=== PATIENT | female | born 1930 | race Caucasian/White ===

== ENCOUNTER 2019-01-22 09:17 | Inpatient (IN) ==
[2019-01-22] MEDS ORDERED: NS 1,000 ML IV ONE (09:50)
[2019-01-22] MEDS ORDERED: ZOFRAN IV ONE (09:57)
--- NOTE | 2019-01-22 10:37 | PROVIDER DOCUMENTATION ---
HPI-Abdominal Pain/GI Problem - General Chief Complaint: Vomiting Blood Stated Complaint: spitting up blood Time Seen by Provider: 01/22/19 09:31 Source: patient Allergies/Adverse Reactions: Patient Allergies Allergy/AdvReac Type Severity Reaction Status Date / Time Penicillins Allergy Severe ANAPHYLAXIS Verified 01/22/19 09:41 Home Medications: Home Medication List Medication Instructions Recorded Confirmed Last Taken Type Aspirin EC 81 mg PO DAILY 02/05/13 01/22/19 01/21/19 History Furosemide [Lasix] 20 mg PO DAILY 02/05/13 01/22/19 01/21/19 History Levothyroxine [Synthroid] 75 microgm PO DAILY 02/05/13 01/22/19 01/21/19 History Cholecalciferol (Vitamin D3) 1 tab PO DAILY 01/22/19 01/22/19 01/21/19 History [Vitamin D3] Duloxetine [Cymbalta] 1 tab PO DAILY 01/22/19 01/22/19 01/21/19 History Metoprolol Succinate E.r. [Toprol 1 tab PO DAILY 01/22/19 01/22/19 01/21/19 History Xl] Naproxen Sod/Diphenhydram HCl 1 tab PO QHS 01/22/19 01/22/19 01/21/19 History [Aleve Pm Caplet] Omeprazole 1 tab PO DAILY 01/22/19 01/22/19 01/21/19 History Simvastatin 1 tab PO DAILY 01/22/19 01/22/19 01/21/19 History - History of Present Illness-ABD Nature of Presenting Problems: 89 yr old F, hx of HTN, renal disease, HF, valve disease, presents with several hour history of spitting up blood. The pt was returning from breakfast this morning and walking back to her room, when she began to spit up bright red blood. Between the time this started and the time she arrived in the hospital, she was noted to have filled up two 6 oz cups with bloody spit; at the time of the exam here, a hazard bag was noted to have about 40-60 mLs of was appeared to be jessy blood. The pt also reported she had been having dark stools for some time, though her last BM, this morning, was not dark at all. She denies any active chest pain or abdominal pain. She does take aspirin and Aleve on a nightly basis. She is alert and oriented x 3. Onset/Duration: reports: 1-3 hours ago Timing: reports: still present Activities at Onset: reports: none Exposure to sick contacts?: No Modifying Factors: improves with: nothing Last BM: this morning Dark Stools Present?: reports: none noticed Rectal Bleeding: reports: none Emesis Description: reports: red blood Bruising or Bleeding Gums?: No Similar Symptoms Previously?: No Review of Systems - Adult - REVIEW OF SYSTEMS - ADULT Constitutional: reports: no symptoms reported Eyes: reports: no symptoms reported Ears, Nose, Mouth & Throat: reports: no symptoms reported Cardiovascular: reports: no symptoms reported Respiratory: reports: no symptoms reported Gastrointestinal: reports: hematemesis Neurological: reports: no symptoms reported Past History - Adult - PAST MEDICAL HISTORY-ADULT Review of Records: reports: Nursing Assessment Review Cardiovascular: reports: CHF, HTN Gastrointestinal: reports: other (hiatal hernia) Neurological: reports: denies history Endocrine/Immune: reports: denies history - IMMUNIZATION STATUS Childhood Immunizations: See Nurse Assessment Flu Vaccine: See Nurse Assessment - FAMILY HISTORY Family History: reviewed, not pertinent Physical Exam-General - PHYSICAL EXAM-ADULT Initial Vital Signs Reviewed: Yes - CONSTITUTIONAL General Appearance: alert, no apparent distress - EYES Eyes: PERRL/EOMI - HEAD, EARS, NOSE, MOUTH & THROAT HENMT: moist mucous membranes, other (bloody saliva noted at mouth and in bag) - RESPIRATORY Respiratory: crackles, wheezing - CARDIOVASCULAR Cardiovascular: regular rate, rhythm - GASTROINTESTINAL (ABDOMEN) Abdominal Exam: non tender, soft - SKIN Integumentary: other (patient appears somewhat pale) - NEUROLOGIC Neurologic: grossly normal - PSYCHIATRIC Psych/Mental Status: normal mood/affect, oriented x 3 Progress - PLAN OF CARE/RESULTS Progress/Plan/Lab Results: Vital Signs - 8 hr 01/22/19 09:26 01/22/19 09:28 01/22/19 09:32 Pulse Rate 70 69 Respiratory Rate 10 L 16 Blood Pressure 107/64 124/62 O2 Sat by Pulse Oximetry 01/22/19 09:35 01/22/19 09:48 01/22/19 10:00 Pulse Rate 70 74 65 Respiratory Rate 19 18 14 Blood Pressure 107/64 102/67 O2 Sat by Pulse Oximetry 100 100 96 01/22/19 10:02 01/22/19 10:19 Pulse Rate 68 74 Respiratory Rate 20 19 Blood Pressure 115/62 96/62 O2 Sat by Pulse Oximetry 100 99 Orders Category Date Time Status CBC WITH ELECTRONIC DIFF [HEME] Stat Lab 01/22/19 10:21 Results CMP [COMPREHENSIVE METABOLIC PANEL] [CHEM] Stat Lab 01/22/19 10:21 Received PRBC [LRPC (RED CELLS)] [BBK] Stat Lab 01/22/19 10:21 Received TYPE & SCREEN [BBK] Stat Lab 01/22/19 10:21 Received 0.9% Sodium Chloride Inj [Ns] 1,000 ml Med 01/22/19 09:50 Active IV 999 mls/hr Ondansetron [Zofran] Med 01/22/19 09:57 Discontinued 8 mg IV NOW ONE Result Diagrams: 01/22/19 14:53 01/22/19 10:21 - REASSESSMENT Reassessment #1 Time Reassessed: 11:30 (Pt evaliayed by Dr. Woods, who took her up for emergent endoscopy. Vitals were stable at time of departure from ED. Pt recieved one bag of fluid prior to departure. ) - CONSULTS/PCP/HOSPITALIST Notification #1 *Consult/PCP/Hospitalist*: Starla Time Discussed: 11:00 Consult Disposition: Admit Departure - Departure Date of Disposition Decision: 01/22/19 Time of Disposition Decision: 11:30 DIAGNOSIS: Upper GI bleeding Disposition: ADMITTED INPATIENT 09 Certified Medical Emergency: Emergent Condition: Serious - Critical Care Note This patient required my direct & personal management of CC.: Yes Total Time (mins): 45 Critical Care Statement: This patient required my direct personal management to treat or rule out processes, the absence of which, could potentiallly result in sudden, clinically significant life or limb threatening deterioration. Attestation - Physician/ DOMENICO Attestation Patient care was provided by Advanced Practice Provider:: No The physician spent face to face time with patient:: Yes Advanced Practice Provider documentation review:: Supervising physician onsite and consulted in the evaluation and care of this patient. The physician did have a face to face encounter with the patient.
[2019-01-22 10:51] LABS: ALB/GLOB RATIO 1.1; ALBUMIN 3.7 g/dL (3.5-5.0); BASO# 0.03 X1000 (0.0-0.2); BASO% 0.5 % (0.0-0.8); CALCIUM 8.4 mg/dL (8.8-10.2); CREATININE 1.6 mg/dL (0.5-0.9); EOS# 0.09 X1000 (0.0-0.7); EOS% 1.6 % (0.0-10.0); HEMATOCRIT 22.9 % (37.0-47.0); HEMOGLOBIN 6.6 g/dL (12.0-16.0); LYMPH# 0.87 X1000 (1.2-3.4); LYMPH% 15.2 % (20.5-51.1); MCH 23.8 PG (27-31); MCHC 28.8 g/dL (33-37); MCV 82.7 FL (81-99); MONO# 0.54 X1000 (0.11-0.59); MONO% 9.4 % (1.7-9.3); MPV 11.4 FL (7.4-10.4); NEUT% 73.3 % (42.2-75.2); PLT 169 X1000 (130-400); RBC 2.77 XMIL (4.2-5.4); RDW 16.3 % (11.5-14.5); TOTAL BILIRUBIN 0.55 mg/dL (0.20-1.00); TOTAL PROTEIN 7.1 g/dL (6.3-8.3); WBC 5.73 X1000 (4.8-10.8)
[2019-01-22] MEDS ORDERED: PROTONIX 80 MG in NS 80 ML IV ONE (10:51)
[2019-01-22] MEDS ORDERED: NS 500 ML IV ONE (11:36)
[2019-01-22] MEDS ORDERED: AMIDATE ONE (12:05)
[2019-01-22] MEDS ORDERED: SODIUM CHLORIDE 0.9% 10 ML ONE (12:16)
[2019-01-22] MEDS ORDERED: NEO-SYNEPHRINE ONE (12:16)
--- NOTE | 2019-01-22 12:56 | ENDOSCOPY OPERATIVE NOTE ---
[facility] ENDOSCOPY OPERATIVE NOTE , PATIENT: Radha Butt ADMISSION DATE: MR#: [id number] : 1930 EGD PROCEDURE REPORT PROCEDURE DATE: 01/22/2019 SURGEON: Agustin Woods MD STATUS: inpatient [employer] MEMBER: Tessa Rosenthal and Karen Fernandez PREOPERATIVE DIAGNOSIS: The patient is a 89 yr old female here for an EGD due to Hematemesis. Anemi a, Use of NSAIds like Aspirin and Aleve every day; developed Vomitting blood after eating Breakfast. PROCEDURE PERFORMED: EGD, diagnostic MEDICATIONS: Per Anesthesia TOPICAL ANESTHETIC: none CONSENT: The patient understands the risks and benefits of the procedure and understands that these r isks include, but are not limited to: sedation, allergic reaction, infection, perforation and/or bleeding. Alternative means of evaluation and treatment include, among others: physical exam, x-rays, and/or surgical intervention. The patient elects to proceed with this endoscopic procedure. HISORY AND PHYSICAL: 01/22/2019 DESCRIPTION OF PROCEDURE: During intra-op preparation period all mechanical and medical equipment was checked for proper function. Hand hygiene and appropriate measures for infection prevention was taken. After the risks, benefits and alternatives of the procedure were thoroughly explained, Informed consent was verified, confirmed and timeout was successfully executed by the treatment team. The patient was anesthetized with topical anesthesia and the endoscope was introduced through the mouth and advanced to the second portion of the duodenum. Retroflexion wa s performed in the stomach and revealed Blood in the distal esophagus and Proximal stomach. The gastroscope was then sl owly withdrawn and removed. ESOPHAGUS: Large amount of blood and clots in the distal esophagus; partially evacuated; One large ad herent clot in distal esophagus likely representing Jennifer Rollins tear. Surgeon was called in the OR. STOMACH: Blood and clots and fod noted in the stomach body. DUODENUM: The duodenal mucosa showed no abnormalities in the duodenal bulb, 1st part duodenum, and 2n d part duodenum. SPECIMENS REMOVED: No ADVERSE EVENTS: There were no complications. POSTOPERATIVE DIAGNOSIS: 1. Large amount of blood and clots in the distal esophagus; partially e vacuated; One large adherent clot in distal esophagus likely representing Jennifer Rollins tear. Surgeon was called in the OR 2. Blood and clots and fod noted in the stomach body 3. The duodenal mucosa showed no abnormalities in the duodenal bulb, 1st part duodenum, and 2nd part duodenum RECOMMENDATIONS: Surgery consult to evaluate for distal esophageal tear CT scan chest/abdomen IV Antibiotic PPI BID Serial Hct and Transfuse as needed. Pulmonary consult for airway maintainence NPO for now. Discussed with Dr Mead by phone. Need to admit to ICU. REPEAT EXAM: Agustin Woods MD eSigned: Agustin Woods MD 01/22/2019 1:56 PM cc: PATIENT NAME: Radha Butt MR#: [id number]
[2019-01-22] MEDS ORDERED: NS 1,000 ML ONE (13:03)
--- NOTE | 2019-01-22 13:39 | HISTORY AND PHYSICAL ---
ADDENDUM TO HISTORY AND PHYSICAL DICTATED BY NURSE PRACTITIONER: I agree with most components of history, physical, assessment, and plan. HISTORY OF PRESENT ILLNESS: In brief, Ms. Butt is an 89-year-old lady with past medical history of sick sinus syndrome status post pacemaker, bioprosthetic aortic wall and severe aortic stenosis within the bioprosthetic aortic valve, essential hypertension, hypothyroidism, esophageal achalasia requiring dilatation in 2019, chronic kidney disease stage 3, who comes in with chief complaint of spitting up blood since today morning. According to the [id number] at bedside, the patient has been having swallowing trouble since last few months, she had seen Dr. Rea outpatient and she underwent EGD with dilatation, the details of which are unclear to me in 2019. Since last 10 days, off and on she spits out food particles and mucousy material. However, today morning in assisted living facility, she was noticed to be spitting out blood and so she was sent to the emergency room. In the emergency room, she was hemodynamically stable and she is constantly spitting out blood in terms of vomiting. Her hemoglobin is 6.8, so the hospitalist team was consulted for further management. By the time I evaluated the patient, Gastroenterology had evaluated the patient and she is about to undergo endoscopic procedure. She is denying any chest pain, shortness of breath. She is complaining of epigastric abdominal pain, bilateral lower extremity edema. She takes daily aspirin and Aleve. PHYSICAL EXAMINATION: VITAL SIGNS: Temperature 97.7 degrees, pulse 66, respiratory rate 12, blood pressure 101/57. She is saturating 100% on room air. GENERAL: Not in any acute distress. HEENT: Oral cavity is moist. No pharyngeal lesions. No tonsillitis. CARDIOVASCULAR: S1 is normal. S2 is obscured. She has a crescendo decrescendo murmur heard at the base of the heart. No rub or gallop. LUNGS: Air entry bilaterally equal. No wheeze, rhonchi, crackles. ABDOMEN: Soft. There is tenderness in epigastric region. Active bowel sounds. EXTREMITIES: Bilateral lower extremity edema. She appears to be having low BMI. NEUROLOGIC: She is alert and oriented x3. LABORATORY DATA: Suggestive of hemoglobin of 6.6, platelet of 169,000. Chronic kidney disease stage 3. She has not been started on blood transfusion at the moment and I discussed with the nurse about getting another 16 G IV line and start her on blood transfusion. The emergency room physician had ordered 80 mg of IV pantoprazole and I started her on another 40 mg IV q.12 hours. ASSESSMENT AND PLAN: 1. Acute blood loss anemia. Differential being peptic ulcer disease or others considering use of aspirin as well as nonsteroidal anti-inflammatories. 2. Status post bioprosthetic aortic valve and severe aortic stenosis. 3. Sick sinus syndrome status post pacemaker. 4. Chronic kidney disease stage 4. 5. Suspected esophageal achalasia versus stricture requiring dilatation in early 2019 with hiatal hernia. 6. Hypothyroidism. Start patient on intravenous pantoprazole. She is status post intravenous fluid resuscitation. Two units of blood transfusion have been ordered. She is about to undergo EGD. She very distinctly admitted that her code status is DNR level 1. She would not want any chest compressions or intubation. Postprocedure plan of care extensively discussed with the patient and her family members. I explained to them about her critical condition because of multiple comorbidities. TIME SPENT: More than 30 minutes of critical care time was spent in taking care of this patient. cc: Jovan Ba MD MTDD
[2019-01-22 15:22] LABS: URINE SOURCE CATH
[2019-01-22 15:27] LABS: BILIRUBIN URINE NEGATIVE (NEGATIVE); BLOOD URINE NEGATIVE (NEGATIVE); COLOR YELLOW; GLUCOSE URINE NEGATIVE (NEGATIVE); KETONE URINE NEGATIVE (NEGATIVE); LEUKOCYTES URINE LARGE (NEGATIVE); NITRITE URINE POSITIVE (NEGATIVE); PROTEIN URINE 30 mg/dL (NEGATIVE); SP GRAVITY URINE 1.016; TURBIDITY URINE HAZY (CLEAR); UR EPITHELIAL CELLS <10 /HPF (<10); URINE BACTERIA 4+ /HPF; URINE RBC <10 /HPF (<10); URINE WBC TNTC /HPF (<10); UROBILINOGEN URINE 2 mg/dL (NORMAL)
[2019-01-22 15:32] LABS: HEMATOCRIT 28.3 % (37.0-47.0)
--- NOTE | 2019-01-22 15:38 | Diag Imaging Result Doc PS360 ---
BA SWALLOW-ESOPHAGUS - 01/22/2019 INDICATION: post EGD TECHNIQUE: COMPARISON: 08/21/2018 FINDINGS: There is a moderately large hiatal hernia. There is some indeterminate frothy material in the stomach. There is no obvious perforation. The patient was having active hematemesis to the patient was returned to the ICU. IMPRESSION: No evidence of perforation. Indeterminate frothy material in the stomach. Electronically signed by Rommel Childress 01/22/2019 3:35 PM
[2019-01-22] MEDS: NS 1,000 ML IV SCH (15:53)
[2019-01-22] MEDS: FLAGYL 500 MG/NS 500 MG/100 ML IVPB IV SCH ×2 (16:12→20:46)
[2019-01-22] MEDS: LEVAQUIN 500 MG/D5W 500 MG/100 ML IVPB IV SCH (16:12)
--- NOTE | 2019-01-22 17:29 | PROGRESS NOTE ---
DATE: 01/22/2019 ADDENDUM: Goals of care discussion: This is an addendum to previously dictated History and Physical. I evaluated the patient in ICU. She is status post EGD. She received 2 units of PRBC during EGD procedure, and her hemoglobin has increased appropriately. Apparently, EGD had large amount of blood in the distal esophagus and a blood clot adherent to the wall of the esophagus, and so the surgeon doctor was called and patient was transferred back to ICU. I had a discussion with General Surgery team and accordingly I gave patient 3 options, (1) transferring her to [facility] for cardiothoracic surgery which itself could be risky; (2) transferring her to [facility] for possible intervention radiology guided embolization, if at all is a possibility, which may involve introduction of contrast and kidney failure on her CKD stage 4, and she may end up on dialysis; and (3) managing her with optimal medical treatment, including antacids, intravenous fluids, and blood transfusions as needed. The patient and her family promptly decided that they wanted to stay in [facility] and pursue further medical care rather than going to [facility] for those aggressive measures. Accordingly, I will keep the patient and monitor in ICU environment. I will also call Transfer Center just in case to get an opinion of intervention radiologist, though, in my opinion, intervention radiology guided intervention itself could be risky considering her CKD stage 4, severe aortic stenosis, and bioprosthetic aortic valve. cc: Jovan Ba MD MTDAmber
--- NOTE | 2019-01-22 17:45 | PROGRESS NOTE ---
DATE: 01/22/2019 ADDENDUM: I talked with interventional radiologist at [facility] over the [facility] transfer line. I explained to him about patient's condition and he suggested that if it is a Jennifer-Rollins tear it is likely venous in origin and it may not be amenable to intervention radiology intervention. Even if it is an arterial bleed, it would involve CT angiography and injection of contrast. Considering that, it may pose risk to her kidneys considering she is already CKD stage 4. The patient and family had previously explicitly decided that they would not undergo any procedure that would pose a risk to her kidneys and she may have to end up on dialysis. So at this point, we will manage her medically inside [facility]. I updated the patient's nurse about this. cc: Jovan Ba MD
[2019-01-22 17:48] LABS: HEMATOCRIT 31.5 % (37.0-47.0); HEMOGLOBIN 9.2 g/dL (12.0-16.0); MCH 24.3 PG (27-31); MCHC 29.2 g/dL (33-37); MCV 83.3 FL (81-99); MPV 10.2 FL (7.4-10.4); RBC 3.78 XMIL (4.2-5.4); RDW 17.5 % (11.5-14.5); WBC 7.12 X1000 (4.8-10.8)
[2019-01-22 17:57] LABS: INR 1.16
[2019-01-22 17:58] LABS: PTT 33.4 Seconds (22.3-41.8)
--- NOTE | 2019-01-22 18:19 | GENERAL SURGERY CONSULTATION ---
DATE: 01/22/2019 REQUESTING PHYSICIAN: Dr. Agustin Woods. REASON FOR CONSULTATION: Possible esophageal tear. HISTORY OF PRESENT ILLNESS: This is an 89-year-old female who I examined in the postoperative recovery room after her EGD. She reports to me eating breakfast this morning followed by blood being regurgitated up into her mouth and she was spitting it out. She specifically denied vomiting or retching. She also denied any abdominal pain or chest pain or neck pain this morning, either before the procedure or after. She does have a history of hiatal hernia and the use of aspirin and Aleve every day. PAST MEDICAL HISTORY: Severe aortic stenosis, pulmonary hypertension, hiatal hernia, history of sick sinus syndrome, followed by pacemaker placement, history of aortic valve replacement, hypertension. HOME MEDICATIONS: Aspirin, Lasix, Synthroid, vitamin D3, Cymbalta, Toprol, naproxen sodium/diphenhydramine, omeprazole, simvastatin. ALLERGIES: Penicillin. PAST SURGICAL HISTORY: Pacemaker placement, bovine aortic valve replacement. FAMILY HISTORY: Reviewed and noncontributory. SOCIAL HISTORY: Negative for tobacco or alcohol. She lives in assisted living. REVIEW OF SYSTEMS: Ten systems reviewed and negative except as noted above. PHYSICAL EXAMINATION: Vital Signs: Temperature 97.3 degrees, pulse 65, blood pressure 101/57, O2 saturation 100%. General: Elderly frail appearing female in no acute distress, who looks her stated age. HEENT: Normocephalic, atraumatic. Extraocular muscles intact. Pupils equal, round, reactive to light. Sclerae anicteric. Moist mucous membranes. Neck: Supple. No thyromegaly. No crepitus. Cardiovascular: Regular rate and rhythm. Respiratory: Clear bilateral breath sounds. No increased work of breathing. No crepitus across the chest wall or neck. Gastrointestinal: Soft, nontender, nondistended. No organomegaly or mass. Extremities: No clubbing or cyanosis. She does have 1 to 2+ pitting edema in her legs. Skin: Warm and dry. No rash. Musculoskeletal: Moves all extremities equally and well. LABORATORY: White cell count 5, hemoglobin 6.6, hematocrit 22.9, platelet count 169,000. Complete metabolic profile reviewed and notable for BUN 30, creatinine 1.6. IMAGING: None yet. OTHER DIAGNOSTIC DATA: The patient underwent EGD and per report. There was a large amount of blood and clot in the distal esophagus partial, which was partially evacuated. There was an adherent clot in the distal esophagus which likely represented a Jennifer-Rollins tear. There was also blood and clots in the stomach body. The duodenum appeared normal. ASSESSMENT AND PLAN: An 89-year-old female with upper gastrointestinal bleed, possible Jennifer- Rollins tear. I think Boerhaave syndrome is much less likely. We will get a Gastrografin followed by barium swallow to rule out Boerhaave tear. If she has persistent bleeding, then I would suggest repeat endoscopy and as a 2nd option transfer to interventional radiologist for intra- arterial angiography and embolization of the bleeding vessel. She is a poor surgical candidate. I have discussed this with the patient and her family. They understand and agree to proceed with further diagnostic workup. In addition, I do agree with the twice daily proton pump inhibitors and blood transfusion. cc: Serafin Mead MD
--- NOTE | 2019-01-22 20:11 | HISTORY AND PHYSICAL ---
CHIEF COMPLAINT: Spitting up blood. HISTORY OF PRESENT ILLNESS: This is an 89-year-old female with a history of bioprosthetic aortic valve on chronic anticoagulation with severe aortic stenosis within the bowel, essential hypertension, esophageal achalasia with dilatation 2018, chronic kidney disease stage 3, who presented to the emergency room with her [id number] and another family member. Evidently, the patient has been having difficulty swallowing over the last few months for which she underwent an EGD with dilatation per Dr. Rea. Over the last 10 days she started having difficulty swallowing again stating that she felt she swallowed her food although she would spit out food particles. She is a resident at an assisted living facility and it was noticed that she was spitting out blood therefore prompting her ER visit. PAST MEDICAL HISTORY: 1. Esophageal achalasia. 2. Sick sinus syndrome status post pacemaker. 3. History of atrial fibrillation. 4. 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 5. Congestive heart failure. 6. Gastroesophageal reflux disease. 7. Hypertension. 8. Chronic kidney disease. 9. Hypothyroid. 10. History of cervical cancer. PAST SURGICAL HISTORY: 1. Appendectomy. 2. Cholecystectomy. 3. Hysterectomy. 4. Tonsillectomy. 5. Pacemaker placement. 6. Aortic valve replacement. SOCIAL HISTORY: She lives at assisted living. Denies any alcohol, tobacco or illicit drug use. She does have family members that are close and active in her care. ALLERGIES: Penicillin with unknown reaction. HOME MEDICATIONS: A list will be obtained by the nursing staff and once verified review and restart as appropriate. REVIEW OF SYSTEMS: Discussed with patient with pertinent positives stated in the HPI. She denied any syncope or dizziness, any chest pain or palpitations, any black or bloody stools, any hematuria, dysuria, frequency, urgency, any shortness of breath, cough, fever, chills. PHYSICAL EXAMINATION: GENERAL: This is an 89-year-old female who is sitting up in the bed in the emergency room in no distress. VITAL SIGNS: Blood pressure is 101/56 with a heart rate of 68, respirations are 18, temperature is 97.3 degrees with O2 saturations that are 96 to 100 percent on 2 L nasal cannula. HEENT: Pupils equal, round, react to light. EOMs are intact. Sclerae anicteric. Head is normocephalic, atraumatic. Mucous membranes are moist. NECK: Supple. Trachea midline. She has no JVD. CARDIOVASCULAR: Regular rate and rhythm. S1 and S2 appreciated. She has a crescendo decrescendo murmur heard. She has no lower extremity edema with peripheral pulses palpable x4 extremities. PULMONARY: Breath sounds clear, no increased work of breathing noted. Chest rises, falls symmetric with respiration. GASTROINTESTINAL: Abdomen soft with epigastric tenderness, nondistended with bowel sounds in all 4 quadrants. NEUROLOGIC: She is alert, oriented x3. LABS: WBC is 5.7 with hemoglobin 6.6, hematocrit 22.9 and platelets of 169,000. Sodium 139, potassium 4, BUN 30, creatinine 1.6 with a glucose of 112. Urinalysis is nitrite positive with large leukocytes, too numerous to count white blood cells. ASSESSMENT AND PLAN: 1. Acute blood loss anemia. 2. Gastrointestinal bleed. 3. Status post bioprosthetic aortic valve with severe aortic stenosis. 4. Chronic kidney disease. 5. Sick sinus syndrome status post pacemaker. 6. Suspected esophageal achalasia versus stricture requiring dilatation in 2019 with a hiatal hernia. 7. Hypothyroid. PLAN: The patient has been given a Protonix bolus and she started on a Protonix drip. She has been evaluated by Dr. Woods in Gastroenterology. She will remain NPO, she is to undergo EGD. Will recheck a CBC with differential in the morning, will continue with gentle IV hydration. further treatments pending hospital course=. Plan was discussed with Dr Ba Dictated by TIN Srinivasan for Jovan Ba MD cc: TIN Srinivasan MD I agree with most components of history, physical, assessment and plan. A separate addendum has been dictated. MTDD
[2019-01-22 21:19] LABS: HEMOGLOBIN 9.6 g/dL (12.0-16.0); MCH 24.8 PG (27-31); MCV 82.7 FL (81-99); MPV 10.6 FL (7.4-10.4); RBC 3.87 XMIL (4.2-5.4); RDW 17.3 % (11.5-14.5); WBC 6.72 X1000 (4.8-10.8)
[2019-01-23 01:27] LABS: HEMATOCRIT 29.9 % (37.0-47.0); HEMOGLOBIN 8.9 g/dL (12.0-16.0); MCH 24.7 PG (27-31); MCHC 29.8 g/dL (33-37); MCV 82.8 FL (81-99); RBC 3.61 XMIL (4.2-5.4); RDW 17.4 % (11.5-14.5); WBC 8.2 X1000 (4.8-10.8)
[2019-01-23] MEDS: PROTONIX IV SCH ×2 (03:32→14:37)
[2019-01-23] MEDS: FLAGYL 500 MG/NS 500 MG/100 ML IVPB IV SCH ×4 (03:34→22:36)
[2019-01-23 06:33] LABS: BASO# 0.05 X1000 (0.0-0.2); BASO% 0.8 % (0.0-0.8); EOS# 0.21 X1000 (0.0-0.7); EOS% 3.3 % (0.0-10.0); HEMATOCRIT 28.1 % (37.0-47.0); IMM GRAN# 0.04 X1000 (0.0-0.04); IMM GRAN% 0.6 % (0.0-0.5); LYMPH# 1.26 X1000 (1.2-3.4); LYMPH% 19.9 % (20.5-51.1); MCH 28.3 PG (27-31); MCV 88.4 FL (81-99); MONO# 0.94 X1000 (0.11-0.59); MONO% 14.8 % (1.7-9.3); MPV 11.4 FL (7.4-10.4); NEUT# 3.84 X1000 (1.4-6.5); NEUT% 60.6 % (42.2-75.2); PLT 114 X1000 (130-400); RBC 3.18 XMIL (4.2-5.4); RDW 18.1 % (11.5-14.5); WBC 6.34 X1000 (4.8-10.8)
[2019-01-23 08:27] LABS: ALBUMIN 3.1 g/dL (3.5-5.0); CALCIUM 7.5 mg/dL (8.8-10.2); CREATININE 1.2 mg/dL (0.5-0.9); PHOSPHORUS 3.3 mg/dL (2.7-4.5); POTASSIUM 3.8 mmol/L (3.5-5.1)
[2019-01-23] MEDS: NS 1,000 ML IV SCH (09:18)
[2019-01-23 09:34] LABS: HEMATOCRIT 30.8 % (37.0-47.0); HEMOGLOBIN 8.9 g/dL (12.0-16.0); MCH 24.6 PG (27-31); MCHC 28.9 g/dL (33-37); MCV 85.1 FL (81-99); MPV 10.8 FL (7.4-10.4); RBC 3.62 XMIL (4.2-5.4); RDW 17.6 % (11.5-14.5); WBC 6.37 X1000 (4.8-10.8)
[2019-01-23 13:25] LABS: HEMATOCRIT 31.9 % (37.0-47.0); HEMOGLOBIN 9.2 g/dL (12.0-16.0); MCH 24.3 PG (27-31); MCHC 28.8 g/dL (33-37); MCV 84.2 FL (81-99); MPV 10.6 FL (7.4-10.4); RBC 3.79 XMIL (4.2-5.4); RDW 17.7 % (11.5-14.5); WBC 6.27 X1000 (4.8-10.8)
--- NOTE | 2019-01-23 14:24 | Diag Imaging Result Doc PS360 ---
CHEST-PORTABLE - 01/23/2019 INDICATION: dyspnea COMPARISON: 01/11/2019 FINDINGS: Stable left-sided pacemaker. Stable sternotomy changes. Stable cardiomegaly and pulmonary vascular congestion. There are new diffuse bilateral mixed infiltrates compatible with pulmonary edema. There are small pleural effusions. IMPRESSION: Congestive heart failure. Electronically signed by Rommel Childress 01/23/2019 2:21 PM
[2019-01-23] MEDS ORDERED: LASIX IV ONE (14:32)
[2019-01-23] MEDS: LEVAQUIN 500 MG/D5W 500 MG/100 ML IVPB IV SCH (14:36)
[2019-01-23] MEDS: AZACTAM 1 GM in NS 50 ML IV SCH ×2 (14:36→22:33)
[2019-01-23] MEDS: SODIUM CHLORIDE 0.9% INJ SCH (14:37)
--- NOTE | 2019-01-23 17:01 | GASTROENTEROLOGY PROGRESS NOTE ---
DATE: 01/23/2019 SUBJECTIVE: The patient is resting in bed, denies any nausea, vomiting or diarrhea. She had 1 bowel movement yesterday morning. She is currently NPO. OBJECTIVE: Vital Signs: Temp is 98.5 degrees, pulse 73, respirations 15, blood pressure 101/62, oxygen saturation 96% on 2 L nasal cannula. Weight is 121.8 pounds, BMI is 27.4 kg/m2. General: alert and oriented x3 and in no acute distress. HEENT: Pale conjunctivae. No icterus. PERRL. Neck: Supple. Cardiovascular: Regular rate and rhythm. No rubs, murmur or gallops heard on auscultation. Lungs: Clear to auscultation anterior and posterior long. No abnormal breath sounds heard. Abdomen: Soft, nondistended. Tender in the epigastric area. Active bowel sounds heard in all 4 quadrants. Extremities: No cyanosis, clubbing, +1 pitting edema noted bilaterally in the lower extremities. Neurological: Alert and oriented x3. LABORATORY: WBC is 6.37, RBC 3.6, hemoglobin 8.9, hematocrit 30.8, platelet count is 112,000. Sodium 141, potassium is 3.8, chloride is 107, carbon dioxide is 25, anion gap is 10, BUN is 29, creatinine is 1.2, glucose is 87, calcium is 7.5, phosphorus is 3.3, AST 29, ALT is 14, and albumin is 3.1. Urinalysis on 01/22/19 showed a trace of protein, nitrate, and large amounts of leukocytes. IMAGING: Barium swallow showed no evidence of perforation. Indeterminate frothy material in the stomach. Chest X-ray showed congestive heart failure. IMPRESSION: 1. Anemia. 2. Gastrointestinal bleed. 3. Status post bioprosthetic aortic valve. 4. Status post pacemaker. 5. Chronic kidney disease. 6. Hypothyroidism. 7. Jennifer-Rollins tear. 8. Blood clot. PLAN: We did an EGD yesterday and it showed blood, clots, food in the stomach. Duodenum mucosa showed no abnormalities in the duodenum bulb. We will continue PPI for 3 months. She is currently NPO and is on IV fluids, normal saline at 50 mL/hours. She is on antibiotics Flagyl and Levaquin. We will continue to follow the plan of care as per her primary care team. This plan was discussed with Dr. De La Rosa. Dictated by TIN Pérez for Gal De La Rosa MD PHYSICIAN ATTESTATION: I have seen and examined the patient. I have discussed and reviewed the the note by Denise CASTLE and agree with findings and plan as documented. In brief, Ms. Radha Butt is an 89 year old woman admitted with UGIB in the setting of Jennifer Rollins tear from intractable nausea and vomiting. Follow-up esophagram yesterday was negative for esophageal perforation. Her hgb has remained stable and patient denies abdominal or chest pain this morning. She is being treated for UTI and is on PPI IV BID. Recommend starting patient on clear liquids today and advance as tolerated. We can transition her PPI to PO BID and continue for 8-12 weeks. Continue antiemetics prn and antibiotics per primary team. Trending her H/H daily, transfuse prn for goal hgb 7-8 Will follow with you. Please call with questions. MTDD
--- NOTE | 2019-01-23 19:48 | PROGRESS NOTE ---
DATE: 01/23/2019 SUBJECTIVE: The patient is resting comfortably in bed. She has no complaints at this time. She denies having any nausea or vomiting. She does complain of epigastric pain. OBJECTIVE: Vital Signs: Temperature 98.5 degrees, blood pressure 117/53, heart rate 71, respirations 14, O2 saturation is 95% on 3 L nasal cannula. General: This is a chronically ill- appearing, elderly female, lying in bed in no acute distress. Heart: S1, S2 normal. Regular rate and rhythm. Lungs: Equal air entry bilaterally. No wheezing. No rales. No rhonchi. Abdomen: Positive bowel sounds. Soft, nontender, nondistended. Extremities: Edema 2+ with mild erythema in both legs. Neurologic: The patient is alert and oriented x3. LABORATORY: White blood cell count 8, hemoglobin 8.9, hematocrit 29, platelets 122,000. Sodium 141, potassium 3.8, chloride 107, calcium 7.5. ASSESSMENT AND PLAN: 1. Upper gastrointestinal bleed likely secondary to a Jennifer-Rollins tear. We will continue to monitor the hemoglobin and hematocrit closely. The patient has been started on a clear liquid diet. We will continue with IV Protonix. Gastroenterology and General Surgery are following. 2. Urinary tract infection. The urine culture is growing gram-negative rods. We will start the patient on IV antibiotic therapy. 3. Anemia of acute blood loss. The patient received a blood transfusion yesterday. We will continue to monitor the hemoglobin and hematocrit closely. 4. Volume overload. The patient has peripheral edema and pulmonary edema on chest x-ray. We will start the patient on diuretic therapy and monitor her volume status closely. 5. Chronic kidney disease. Stable. 6. Disposition. The patient is currently a DNR level 1. The patient has been seen by Palliative Care and arrangements are being made for the patient to be placed on hospice upon return to her assisted living facility. cc: Unique Schmid MD
--- NOTE | 2019-01-23 22:26 | GENERAL SURGERY PROGRESS NOTE ---
DATE: 01/23/2019 SUBJECTIVE: The patient denies abdominal pain, chest pain, shortness of breath, nausea, or vomiting. She has had no further regurgitation of blood. OBJECTIVE: She is afebrile. Vital signs are stable.General: She is awake, alert, oriented x3. No acute distress. CV: Regular rate and rhythm. Respiratory: Bilateral breath sounds. No work of breathing. Gastrointestinal: Soft, nontender, nondistended. LABORATORY: Hemoglobin overnight ranged between 8.9 and 9.6. Hematocrit ranged between 28.1 and 32. There does not appear to be significant downtrend this morning. ASSESSMENT AND PLAN: An 89-year-old female with large hiatal hernia and upper gastrointestinal bleed likely a Jennifer-Rollins tear versus esophageal or gastric ulcer. Currently, she is hemodynamically stable. The hemoglobin and hematocrit are stable. She is not showing any signs of Boerhaave syndrome. We will begin to advance her diet and will keep her on proton pump inhibitors. Given her age and frailty, we are not planning any operative intervention for this difficult problem. If she were to change her mind, then I would recommend transfer to [place] for cardiothoracic surgery evaluation as well as Interventional Radiology. cc: Serafin Mead MD
[2019-01-24] MEDS: PROTONIX IV SCH ×2 (04:14→15:05)
[2019-01-24] MEDS: FLAGYL 500 MG/NS 500 MG/100 ML IVPB IV SCH ×3 (04:15→16:21)
[2019-01-24] MEDS: SODIUM CHLORIDE 0.9% INJ SCH ×2 (04:15→15:05)
[2019-01-24] MEDS: AZACTAM 1 GM in NS 50 ML IV SCH ×3 (06:30→21:00)
[2019-01-24 08:10] LABS: HEMATOCRIT 29.1 % (37.0-47.0); HEMOGLOBIN 8.4 g/dL (12.0-16.0); MCH 24.9 PG (27-31); MCHC 28.9 g/dL (33-37); MCV 86.4 FL (81-99); MPV 11.1 FL (7.4-10.4); RBC 3.37 XMIL (4.2-5.4); RDW 18.4 % (11.5-14.5); WBC 6.63 X1000 (4.8-10.8)
[2019-01-24 08:33] LABS: CALCIUM 8.1 mg/dL (8.8-10.2); CREATININE 1.4 mg/dL (0.5-0.9); POTASSIUM 3.8 mmol/L (3.5-5.1)
[2019-01-24] MEDS ORDERED: LASIX IV SCH (09:00)
--- NOTE | 2019-01-24 13:28 | GASTROENTEROLOGY PROGRESS NOTE ---
DATE: 01/24/2019 SUBJECTIVE: Ms. Butt 89 year old female is sitting in the bed, having her breakfast and family at the bedside. She denies any nausea, vomiting, but complained of dull abdominal pain on the right upper quadrant. She is currently on clear liquid diet and is tolerating it well.. She is on 2 L nasal cannula. OBJECTIVE: Vital Signs: Temperature is 98.1 degrees, pulse is 69, respirations are 18, blood pressure is 125/55, oxygen saturation is 92% on 2 L nasal cannula. Weight 122 pounds, BMI 27.4 kg per meter square. General: She is alert, oriented x3, and in no acute distress. HEENT: Pale conjunctivae. No icterus. PERRL. Neck: Supple. Cardiovascular: Regular rate and rhythm. No rubs, murmurs, or gallops heard on auscultation. Lungs: Clear to auscultation in anterior and posterior long. No abnormal breath sounds heard. Abdomen: Soft, nondistended, tender in the right upper quadrant. Active bowel sounds heard in all 4 quadrants. Extremities: No cyanosis, clubbing. Generalized edema noted bilaterally in the lower extremities. Neuro: Alert, oriented x3. LABS: WBCs 6.60, RBCs 3.37, hemoglobin is 8.4, hematocrit is 29.1, platelet count 100,000. Sodium is 144, potassium 3.8, chloride is 108, carbon dioxide 23, anion gap is 17, BUN 25, creatinine 1.4, glucose is 76, calcium is 8.1, and albumin is 3.1. Urinalysis on 01/22 showed a trace of protein, leukocytes large, and trace of WBC and positive nitrates. Urine culture was positive for E-coli. IMAGING: Chest x-ray showed congestive heart failure and her barium swallow showed no evidence of perforation. Indeterminate frothy material in the stomach. IMPRESSION AND PLAN: Anemia GI bleed Status post bioprosthetic aortic valve Status post pacemaker CKD Hypothyroid Jennifer Rollins Tear Blood clots PLAN: Patient is on clear liquids, advance diet as tolerated. Continue GI prophylaxis protonix for 3 months. Per her PCP she is getting antibiotics Flagyl, Levaquin and Azactam. Her H & H today was 8.4. and 29.1, we will continue to monitor her CBC and BMP and follow the plan of care per primary care team. This plan was discussed with Dr. De La Rosa. Please call us for any further questions or concerns. Dictated by TIN Pérez for Gal De La Rosa MD Physician Attestation I have seen and examined the patient. I have discussed and reviewed the the note by Denise CASTLE and agree with findings and plan as documented. In brief, Ms. Radha Butt is a 89 year old woman who presented to GI service with UGIB bleed from Jennifer Rollins tear. She denies persistent N/V, chest or abdominal pain. Her hgb 8.4 from AM. She is hemodynamically stable. Recommend continuing PPI IV BID and advance diet as tolerated. If her hgb continues to downtrend, she may need repeat EGD. She is on abx for UTI. Will follow with you. MTDD
[2019-01-24] MEDS: LEVAQUIN 500 MG/D5W 500 MG/100 ML IVPB IV SCH (15:04)
[2019-01-24] MEDS ORDERED: TYLENOL WITH CODEINE #3 PO SCH (21:00)
[2019-01-24] MEDS: ICAR-C PO SCH (21:36)
[2019-01-24] MEDS: ZOFRAN IV PRN (21:37)
--- NOTE | 2019-01-25 00:58 | PROGRESS NOTE ---
DATE: 01/24/2019 SUBJECTIVE: The patient is resting comfortably in bed. No acute events noted overnight. OBJECTIVE: Vital Signs: Temperature 97.2 degrees, blood pressure 103/66, heart rate 84, respirations 18, O2 saturation 94% on room air. General: This is an elderly female lying in bed, in no acute distress. Heart: S1, S2 normal. Regular rate and rhythm. Lungs: Equal air entry bilaterally. No crackles. No rales. Abdomen: Positive bowel sounds. Soft, nontender, nondistended. Extremities: Edema 1+. Mild erythema in the leg. Neurologic: The patient is alert and oriented x3. LABORATORY DATA: Hemoglobin 8.4, hematocrit 29, platelets 100,000. Sodium 144, potassium 3.8, BUN 25, creatinine 1.4, glucose 76. ASSESSMENT AND PLAN: 1. Upper gastrointestinal bleed secondary to Jennifer-Rollins tear. We will continue on Protonix. The patient's diet will be advanced to a gastrointestinal soft diet. We will continue to monitor the hemoglobin and hematocrit. Gastroenterology is following. 2. Urinary tract infection secondary to Escherichia coli. Continue on azactam. 3. Volume overload. Slightly improved. 4. Anemia of acute blood loss. Continue to monitor the hemoglobin and hematocrit, and transfuse p.r.n. 5. Disposition. The patient is currently a Do Not Resuscitate/Allow Natural level 1. Physical Therapy has been consulted to assist with mobilizing the patient. Community Health Director and Palliative Care are working on a discharge plan for the patient. cc: Unique Schmid MD MTDD
[2019-01-25] MEDS: AZACTAM 1 GM in NS 50 ML IV SCH ×3 (05:35→21:12)
[2019-01-25] MEDS: PROTONIX IV SCH ×2 (05:35→18:01)
[2019-01-25 06:23] LABS: URINE SOURCE CATH
[2019-01-25 06:34] LABS: BILIRUBIN URINE NEGATIVE (NEGATIVE); BLOOD URINE TRACE (NEGATIVE); COLOR YELLOW; GLUCOSE URINE NEGATIVE (NEGATIVE); KETONE URINE TRACE mg/dL (NEGATIVE); LEUKOCYTES URINE SMALL (NEGATIVE); NITRITE URINE NEGATIVE (NEGATIVE); PH URINE 5.5; PROTEIN URINE TRACE mg/dL (NEGATIVE); SP GRAVITY URINE 1.015; TURBIDITY URINE CLEAR (CLEAR); UROBILINOGEN URINE NORMAL (NORMAL)
[2019-01-25 06:36] LABS: UR EPITHELIAL CELLS <10 /HPF (<10); URINE BACTERIA NEGATIVE /HPF; URINE RBC <10 /HPF (<10); URINE WBC <10 /HPF (<10)
[2019-01-25 08:47] LABS: HEMATOCRIT 29.7 % (37.0-47.0); HEMOGLOBIN 9.8 g/dL (12.0-16.0); MCH 29.6 PG (27-31); MCV 89.7 FL (81-99); MPV 10.5 FL (7.4-10.4); RBC 3.31 XMIL (4.2-5.4); WBC 5.56 X1000 (4.8-10.8)
[2019-01-25 08:57] LABS: CALCIUM 8.3 mg/dL (8.8-10.2); CREATININE 1.4 mg/dL (0.5-0.9); POTASSIUM 3.6 mmol/L (3.5-5.1)
[2019-01-25 08:59] LABS: IRON SATURATION 6 %; TIBC 320 ug/dL; TOTAL IRON 20 ug/dL (49-151); UNBOUND IRON 300 ug/dL (112-346)
[2019-01-25 09:00] LABS: FERRITIN 24 ng/mL (13-150)
[2019-01-25 09:10] LABS: PHOSPHORUS 3.3 mg/dL (2.7-4.5)
[2019-01-25] MEDS: ICAR-C PO SCH ×2 (09:19→21:17)
--- NOTE | 2019-01-25 10:13 | Diag Imaging Result Doc PS360 ---
EXAM: FLAT/UPRIGHT ABD/1 VIEW CHEST HISTORY: dyspnea/constipation TECHNIQUE: Flat and upright with chest, three views COMPARISON: 01/23/2019 FINDINGS: The heart is enlarged. The heart valve has been replaced. There is basilar atelectasis and small effusions. Left pacemaker. No organomegaly. There is contrast in the proximal and mid colon. Small amount stool is present throughout the colon. No bowel obstruction. There are multiple surgical clips in the abdomen and pelvis. Moderate scoliosis with degenerative spine changes. Prominent atherosclerosis. IMPRESSION: Mild constipation. Electronically signed by Avery Mclain 01/25/2019 10:11 AM
[2019-01-25] MEDS: COLACE PO SCH ×2 (13:24→21:17)
[2019-01-25] MEDS: MIRALAX PO SCH (13:25)
--- NOTE | 2019-01-25 18:29 | GASTROENTEROLOGY PROGRESS NOTE ---
DATE: 01/25/2019 SUBJECTIVE: Ms. Butt is an 89-year-old, female, who was having her breakfast, denied any abdominal pain. She is currently on a mechanical soft diet and could not tolerate the diet; She spit up everything after few bites. Will switch to Full liquid diet for now. OBJECTIVE: Vital Signs: Temperature 97.6 degrees, pulse of 68, respirations are 18, blood pressure is 116/71, oxygen is 100% on 2 L nasal cannula. General: She is alert, oriented x3, and in no acute distress. HEENT: Pale conjunctivae. No icterus. PERRL. Neck: Supple. Lungs: Clear to auscultation in anterior and posterior long. Heart: Regular rate and rhythm. No rubs, murmurs, or gallops heard on auscultation. Abdomen: Soft, nontender, nondistended. Active bowel sounds heard in all 4 quadrants. Extremities: No cyanosis. No clubbing. Generalized edema noted bilaterally. Pedal pulse 1+ noted bilaterally. Neurologic: Alert, oriented x3. LABORATORY AND DIAGNOSTIC DATA: WBCs is 5.56, RBC is 3.31, hemoglobin is 9.98, hematocrit is 29.7, platelet count is 91,000. PT is 15.0, INR is 1.16. Sodium is 143, potassium is 3.6, chloride is 103, carbon dioxide is 23, anion gap is 14, BUN is 22, creatinine is 14, glucose is 104, calcium is 8.3, iron is 20, total iron binding capacity is 320, B12 is 639, and folate is 16.5. Abdominal x-ray showed mild constipation. Chest x-ray showed congestive heart failure. Barium swallow showed no evidence of perforation, indeterminate for the material in the stomach. IMPRESSION: 1. Anemia. 2. Gastrointestinal bleed. 3. Status post bioprosthetic aortic valve. 4. Status post pacemaker. 5. Chronic kidney disease. 6. Hypothyroidism. 7. Jennifer-Rollins tear. 8. h/o Dysphagia in the past. 9. UTI 10. Nausea and Vomiting. PLAN: Switch to full liquid diet for now. Continue with her IV Protonix 40 mg b.i.d. antiemetic Zofran for nausea and vomiting. She is receiving iron tablets p.o. She is on antibiotic Azactam for her UTI. He H & H today was 9.98 and 29.7, we will continue to monitor patient's hemoglobin, hematocrit, and BMP, follow the plan of care per primary team. This plan was discussed with Dr. Woods. Please call us for any further questions or concerns. Dictated by TIN Pérez for Agustin Woods MD cc: Agustin Woods MD Patient seen and examined myself. I agree with the above plan of care. I have discussed the above with the patient and family at bedside and all questions were answered. Please call us with any further questions MTDD
[2019-01-25] MEDS ORDERED: DESYREL PO SCH (21:00)
[2019-01-25] MEDS: ZOFRAN IV PRN (21:17)
--- NOTE | 2019-01-25 21:32 | PROGRESS NOTE ---
DATE: 01/25/2019 SUBJECTIVE: The patient has been having problems keeping her food down. She has been having some nausea and vomiting this morning. OBJECTIVE: Vital Signs: Temperature 97.8 degrees, blood pressure 112/64, heart rate 69, respirations 18, O2 saturations 94% on 2 L nasal cannula. General: This is an elderly female sitting up in bed in no acute distress. Heart: S1, S2. Normal. Regular rate and rhythm. Lungs: Equal air entry bilaterally. No wheezing. No rales. No rhonchi. Abdomen: Positive bowel sounds. Soft, nontender, nondistended. Extremities: 1+ edema bilaterally. Neurologic: The patient is alert and oriented x4. LABS: White blood cell count 5.5, hemoglobin 9.8, hematocrit 29, platelets 91,000. Sodium 143, potassium 3.6, chloride 103, CO2 26, BUN 22, creatinine 1.4. ASSESSMENT AND PLAN: 1. Gastrointestinal bleed secondary to suspected Jennifer-Rollins tear. Continue with Protonix. 2. Nausea with vomiting. The patient is not tolerating the mechanical soft diet. She has been switched to a full liquid diet and Ensure has been added to her diet as well. 3. Constipation. We will start MiraLAX and Colace. 4. Insomnia. We will start the patient on trazodone at bedtime. 5. Thrombocytopenia. The platelet count is slowly dropping. We will continue to monitor closely. 6. Anemia. Stable. 7. Chronic kidney disease stage 3. Stable. 8. Diastolic congestive heart failure. Stable. 9. Deep vein thrombosis prophylaxis. Continue with sequential compression devices. DISPOSITION: Continue with physical therapy. Obgyn Hospitalist Physician and palliative care are working on a discharge plan for the patient. cc: Unique Schmid MD [facility]
[2019-01-26] MEDS: PROTONIX IV SCH ×2 (05:19→21:03)
[2019-01-26] MEDS: AZACTAM 1 GM in NS 50 ML IV SCH ×3 (05:19→21:04)
[2019-01-26 07:28] LABS: HEMOGLOBIN 9.1 g/dL (12.0-16.0); MCH 29.9 PG (27-31); MCHC 32.5 g/dL (33-37); MCV 92.1 FL (81-99); MPV 10.5 FL (7.4-10.4); RBC 3.04 XMIL (4.2-5.4); RDW 22.5 % (11.5-14.5); WBC 6.67 X1000 (4.8-10.8)
[2019-01-26 07:41] LABS: CALCIUM 8.5 mg/dL (8.8-10.2); CREATININE 1.4 mg/dL (0.5-0.9); POTASSIUM 3.8 mmol/L (3.5-5.1)
[2019-01-26] MEDS: COLACE PO SCH ×2 (08:44→21:08)
[2019-01-26] MEDS: MIRALAX PO SCH (08:44)
[2019-01-26] MEDS: LASIX PO SCH (08:44)
[2019-01-26] MEDS: ICAR-C PO SCH ×2 (08:44→21:03)
[2019-01-26 09:26] LABS: MAGNESIUM 2.1 mg/dL (1.5-2.7); PHOSPHORUS 3.1 mg/dL (2.7-4.5)
--- NOTE | 2019-01-26 16:23 | GASTROENTEROLOGY PROGRESS NOTE ---
DATE: 01/26/2019 SUBJECTIVE: Ms Butt is 89-year-old female who stated that she was not feeling good. She has been complaining of nausea and vomiting, denied having any bowel movements today. OBJECTIVE: Vital signs: Temperature is 97.5 degrees, pulse is 72, respirations are 18, blood pressure is 99/58, oxygen saturation is 99% 2 L nasal cannula. Weight 121.8 pounds, BMI 27.4 kg per meter square. General: In general, he isalert, oriented x3, and in no acute distress. HEENT: Pale conjunctivae. No icterus. PERRL. Neck: Supple. Lungs: Clear to auscultation anterior and posterior long. Heart: Regular rate and rhythm. No murmurs, rubs, or gallops heard on auscultation. Abdomen: Soft, tender, nondistended. Active bowel sounds heard in all 4 quadrants. Extremities: No cyanosis, no clubbing. Generalized edema noted bilaterally. Pedal pulses 2+ present bilaterally. Neurologic: Alert, oriented x3. LABORATORY DATA: WBC 6.7, RBC 3.04, hemoglobin 9.1, hematocrit is 28, platelet count is 89,000. Sodium is 140, potassium is 3.8, BUN is 23, creatinine is 1.4, glucose is 113, phosphorus 3.1, magnesium is 2.1. Iron is 20, TIBC is 320. Urinalysis showed trace of protein, trace of ketones, trace of blood and large amounts of leukocytes. Urine culture showed no growth. Urine culture on 01/22 had showed Escherichia coli. Abdominal x-ray showed mild constipation. Chest x-ray showed congestive heart failure. IMPRESSION AND PLAN: Anemia GI bleed N/V Dsphagia Status post bioprosthetic aortic valve Status post pacemaker CKD Hypothyroid UTI Jennifer Rollins Tear Blood clots PLAN: We will continue patient with Protonix 40 mg IV twice a day for her GI bleed, antiemetics, Zofran for nausea and vomiting and Iron tablets for anemia. She is receiving Azactam for her UTI. She is also getting MiraLAX and Colace for her constipation. We will plan to do a repeat EGD if her H & H continues to drop. Her H & H todya is 9.1 and 28, we will continue to monitor her CBC and BMP, continue to follow the plan of care of the PCP and Infectious disease. This plan was discussed with Dr. De La Rosa. Please call us for any further questions or concerns. Dictated by TIN Pérez for Gal De La Rosa MD Physician Attestation I have seen and examined the patient. I have discussed and reviewed the the note by Denise CASTLE and agree with findings and plan as documented. In brief, Ms. Radha Butt is a 89 year old woman who presented to GI service with UGIB bleed from Jennifer Rollins tear. Her nausea is controlled. No SOB, chest or abdominal pain. Her hgb 9.1 this AM. She is hemodynamically stable. Recommend continuing PPI BID. She is on a bowel regimen for constipation.She is on abx for UTI. Will follow with you. MTDD
--- NOTE | 2019-01-26 20:00 | PROGRESS NOTE ---
DATE: 01/26/2019 SUBJECTIVE: The patient is resting comfortably in bed. She had a lot of nausea and vomiting yesterday. This morning, she appears to be able to tolerate her breakfast. OBJECTIVE: Vital Signs: Temperature 97.5 degrees, blood pressure 99/58, heart rate 72, respirations 18, O2 saturation is 99% on 2 L nasal cannula. General: This is a chronically ill- appearing, elderly female, sitting up in bed in no acute distress. Heart: S1, S2 normal. Regular rate and rhythm. Lungs: Equal air entry bilaterally. No wheezing. No rales. No rhonchi. Abdomen: Positive bowel sounds. Soft, nontender, nondistended. Extremities: Edema 1+ bilaterally. Neurologic: The patient is alert and oriented x3. LABORATORY: White blood cell count 6.6, hemoglobin 9.1, hematocrit 28, platelets 89,000. Sodium 140, potassium 3.8, chloride 102, CO2 of 26, BUN 23, creatinine 1.4, glucose 113. ASSESSMENT AND PLAN: 1. Gastrointestinal bleed secondary to suspected Jennifer-Rollins tear. Stable. The patient's hemoglobin and hematocrit is stable. Continue on Protonix. 2. Nausea with vomiting. Continue to slowly advance the patient's diet as tolerated. 3. Constipation. The patient has not had a bowel movement yet. We will continue with laxative therapy. 4. Thrombocytopenia. Monitor closely. 5. Urinary tract infection secondary to Escherichia coli. Continue with antibiotic therapy. 6. Severe iron deficiency anemia. The patient is on iron supplementation. 7. Chronic kidney disease stage 3. Stable. 8. Diastolic congestive heart failure. Stable. 9. Disposition: Continue with physical therapy. cc: Unique Schmid MD [facility]
[2019-01-26] MEDS: DESYREL PO SCH (21:02)
[2019-01-26] MEDS: SODIUM CHLORIDE 0.9% INJ SCH (21:03)
[2019-01-26] MEDS: LACTULOSE PO SCH (21:07)
[2019-01-26] MEDS: DULCOLAX PR SCH (21:08)
[2019-01-27] MEDS: AZACTAM 1 GM in NS 50 ML IV SCH ×2 (06:10→14:54)
[2019-01-27 08:10] LABS: HEMATOCRIT 34.9 % (37.0-47.0); HEMOGLOBIN 9.9 g/dL (12.0-16.0); MCH 24.6 PG (27-31); MCHC 28.4 g/dL (33-37); MCV 86.6 FL (81-99); MPV 10.6 FL (7.4-10.4); RBC 4.03 XMIL (4.2-5.4); RDW 20.9 % (11.5-14.5); WBC 10.54 X1000 (4.8-10.8)
[2019-01-27] MEDS: COLACE PO SCH ×2 (08:14→20:45)
[2019-01-27] MEDS: LASIX PO SCH ×2 (08:14→17:31)
[2019-01-27] MEDS: ICAR-C PO SCH ×2 (08:14→20:44)
[2019-01-27] MEDS: PROTONIX IV SCH ×2 (08:14→11:21)
[2019-01-27] MEDS: LACTULOSE PO SCH ×2 (08:15→20:45)
[2019-01-27] MEDS: MIRALAX PO SCH (08:15)
[2019-01-27 08:27] LABS: CALCIUM 8.7 mg/dL (8.8-10.2); CREATININE 1.3 mg/dL (0.5-0.9); POTASSIUM 4.2 mmol/L (3.5-5.1)
[2019-01-27] MEDS: PROTONIX PO SCH ×2 (12:40→20:44)
--- NOTE | 2019-01-27 15:55 | PROGRESS NOTE ---
DATE: 01/27/2019 SUBJECTIVE: The patient has been having little episodes of vomiting after eating lunch, specifically after consuming Ensure. OBJECTIVE: Vital signs: Temperature 97.7 degrees, blood pressure 95/72, heart rate 74, respirations 20, O2 saturations 100% on room air. Intake 1.1 L, output 1 L. General: This is a chronically ill-appearing elderly female lying in bed in no acute distress. Heart: S1, S2 normal. Regular rate and rhythm. Lungs: Equal air entry bilaterally. No wheezing. No rales. No rhonchi. Abdomen: Positive bowel sounds. Soft, nontender, nondistended. Extremities: 1+ edema bilaterally. Neuro: The patient is alert and oriented x3. LABS: White blood cell count 10, hemoglobin 9.9, hematocrit 34, platelets 94,000. Sodium 139, potassium 4.2, chloride 102, CO2 26, BUN 19, creatinine 1.3, glucose 91. ASSESSMENT AND PLAN: 1. Gastrointestinal bleed secondary to a suspected Jennifer-Rollins tear. Stable. Continue on Protonix. 2. Nausea with vomiting. The patient is still having episodes of vomiting. We will continue with antiemetic therapy and a full liquid diet. 3. Constipation. The patient had a bowel movement this morning. Continue with laxative therapy. 4. Volume overload. We will start the patient on diuretic therapy. 5. Thrombocytopenia. Slightly improved today. 6. Urinary tract infection secondary to Escherichia coli. The repeat urine culture is showing no growth. We will discontinue the antibiotic therapy. 7. Severe iron deficiency anemia. Continue on iron supplementation. 8. Chronic kidney disease stage 3. Stable. 9. Diastolic congestive heart failure exacerbation. The patient is on diuretic therapy. 10. Disposition. The patient will continue to work with physical therapy. The patient may require inpatient rehab for further strengthening. Reel Repairer and Palliative Care are following. cc: Unique Schmid MD
[2019-01-27] MEDS: DULCOLAX PR SCH (20:45)
[2019-01-27] MEDS: DESYREL PO SCH (20:45)
--- NOTE | 2019-01-27 23:52 | PROVIDER PROGRESS NOTE ---
Progress Note S: No acute overnight events. No N/V/F, CP. She is tolerating PO. Patient reports having diarrhea after receiving laxatives. No rectal bleeding or melena. O: T 98.1 HR 86 RR 18 BP 109/51 O2 97% RA GEN: awake, alert NAD, elderly HEENT: anicteric, MMM, EOMI NECK: supple, no JVD PULM: CTAB anteriorly no wheezing CV: RRR ABD: soft NT/ND, NABS EXT: WWP, no cc NEURO: nonfocal LABS: 01/27/19 01/27/19 07:48 07:48 WBC 10.54 Hgb 9.9 L Plt Count 94 L Sodium 139 Potassium 4.2 Chloride 102 Carbon Dioxide 26 Anion Gap 11 BUN 19 Creatinine 1.3 H A/P: Ms. Radha Butt is a 89 year old woman who presented to GI service with UGIB bleed from Jennifer Rollins tear. Her nausea is controlled. No SOB, chest or abdominal pain. Her hgb 9.9 this AM. She is hemodynamically stable. Recommend continuing PPI BID for 8-12 weeks. Constipation is resolved; now having iatrogenic diarrhea. She is on abx for UTI. # UGIB # Jennifer Rollins tear # Anemia # Constipation # UTI Will sign off. Please call with questions or concerns
[2019-01-28] MEDS: LASIX PO SCH ×3 (01:52→21:33)
[2019-01-28 08:19] LABS: CALCIUM 8.8 mg/dL (8.8-10.2); CREATININE 1.3 mg/dL (0.5-0.9); POTASSIUM 4.3 mmol/L (3.5-5.1)
[2019-01-28] MEDS ORDERED: LASIX IV SCH (09:00)
[2019-01-28] MEDS: MIRALAX PO SCH (09:41)
[2019-01-28] MEDS: LACTULOSE PO SCH ×2 (09:41→21:36)
[2019-01-28] MEDS: PROTONIX PO SCH ×2 (09:42→21:33)
[2019-01-28] MEDS: COLACE PO SCH ×2 (09:42→21:36)
[2019-01-28] MEDS: ICAR-C PO SCH ×2 (09:42→21:36)
[2019-01-28] MEDS: ZOFRAN ODT PO PRN ×3 (14:19→22:59)
--- NOTE | 2019-01-28 18:09 | PROGRESS NOTE ---
DATE: 01/28/2019 SUBJECTIVE: The patient was able to tolerate her oatmeal this morning. She is still having episodes of vomiting the juice that she was trying to drink this morning. OBJECTIVE: Vital Signs: Temperature 98.4 degrees, blood pressure 101/55, heart rate 94, respirations 20, O2 saturation 97% on room air. General: This is a chronically ill-appearing elderly female lying in bed in no acute distress. Heart: S1, S2 normal. Regular rate and rhythm. Lungs: Equal air entry bilaterally. No wheezing. No rales. Abdomen: Positive bowel sounds. Soft, nontender, nondistended. Extremities: 2+ edema. Neurologic: The patient is alert and oriented x3. LABS: Sodium 139, potassium 4.3, chloride 100, CO2 30, BUN 19, creatinine 1.3, glucose 90. ASSESSMENT AND PLAN: 1. Gastrointestinal bleed secondary to suspected Jennifer-Rollins tear. Stable. 2. Constipation. Continue with scheduled laxative therapy. 3. Volume overload. Continue on Lasix. 4. Thrombocytopenia. Stable. 5. Urinary tract infection secondary to Escherichia coli. Resolved. 6. Severe iron deficiency anemia. Continue with iron supplementation. 7. Chronic kidney disease stage 3. Stable. 8. Diastolic congestive heart failure exacerbation. Continue with diuretic therapy. 9. Continue with physical therapy. 10. Disposition. Network Engineer Administrator and Palliative Care are working on a discharge plan for the patient. cc: Unique Schmid MD [facility]
[2019-01-28] MEDS: DESYREL PO SCH (21:33)
[2019-01-28] MEDS: DULCOLAX PR SCH (21:36)
[2019-01-29 07:50] LABS: HEMATOCRIT 32.1 % (37.0-47.0); HEMOGLOBIN 9.2 g/dL (12.0-16.0); MCH 25.3 PG (27-31); MCHC 28.7 g/dL (33-37); MCV 88.2 FL (81-99); RBC 3.64 XMIL (4.2-5.4); RDW 22.9 % (11.5-14.5); WBC 6.18 X1000 (4.8-10.8)
[2019-01-29 08:05] LABS: CALCIUM 8.4 mg/dL (8.8-10.2); CREATININE 1.3 mg/dL (0.5-0.9); POTASSIUM 4.1 mmol/L (3.5-5.1)
[2019-01-29] MEDS: MIRALAX PO SCH (09:51)
[2019-01-29] MEDS: ICAR-C PO SCH ×2 (09:52→21:06)
[2019-01-29] MEDS: LACTULOSE PO SCH ×2 (09:52→21:06)
[2019-01-29] MEDS: COLACE PO SCH ×3 (09:52→21:06)
[2019-01-29] MEDS: LASIX PO SCH ×2 (09:52→21:06)
[2019-01-29] MEDS: PROTONIX PO SCH ×2 (09:52→21:06)
[2019-01-29] MEDS: ZOFRAN ODT PO PRN (09:59)
[2019-01-29] MEDS: CARAFATE LIQUID PO SCH ×3 (11:29→21:06)
--- NOTE | 2019-01-29 13:10 | PROGRESS NOTE ---
DATE: 01/29/2019 SUBJECTIVE: The patient is resting comfortably. She states that she is still unable to keep her meals down. She has episodes where she vomits. OBJECTIVE: Vital Signs: Temperature 98 degrees, blood pressure 96/68, heart rate 70, respirations 20, O2 saturation 99% on room air. General: This is a chronically ill-appearing elderly female lying in bed in no acute distress. Heart: S1, S2 normal. Regular rate and rhythm. Lungs: Equal air entry bilaterally. No wheezing. No rales. No rhonchi. Abdomen: Positive bowel sounds. Soft, nontender, nondistended. Extremities: No edema. No cyanosis. Neurologic: The patient is alert and oriented x3. LABORATORY DATA: White blood cell count 6.1, hemoglobin 9.2, hematocrit 32, platelets 77,000. Sodium 141, potassium 4.1, chloride 102, CO2 30, BUN 19, creatinine 1.3, glucose 83. ASSESSMENT AND PLAN: 1. Gastrointestinal bleed secondary to a suspected Jennifer-Rollins tear. The patient's hemoglobin and hematocrit are stable. Continue on Protonix. 2. Persistent nausea and vomiting. The patient is still unable to tolerate a full liquid diet without episodes of emesis. The patient has been seen by Gastroenterology and they have ordered a barium swallow. 3. Volume overload. Continue on Lasix. 4. Iron deficiency anemia. Continue with iron supplementation. 5. Acute on chronic diastolic congestive heart failure exacerbation. Continue with diuretic therapy. 6. Chronic kidney disease stage III. Stable. 7. Thrombocytopenia. We will consult grain manager. 8. Disposition. The patient will likely require inpatient rehab placement once she is medically stable. The patient is currently a DNR level 1. Palliative care is following. cc: [facility]
--- NOTE | 2019-01-29 14:57 | Diag Imaging Result Doc PS360 ---
EXAM: BA SWALLOW W/VIDEO SPEECH THER INDICATION: Persistent N/V Hx of esophageal tear TECHNIQUE: COMPARISON: Barium swallow dated 01/22/2019 FINDINGS: There was mild pooling of barium of thin liquid and pudding consistency in the valleculae upon swallowing. There was a mild delay in oral phase of swallowing on the pudding consistency swallow. No aspiration or penetration is appreciated. There is no evidence of cricopharyngeus hypertrophy. Limited views of the distal esophagus reveals a hiatal hernia that is stable as compared to the prior study. No abnormal contrast extravasation was appreciated. IMPRESSION: 1.Stable hiatal hernia with no contrast extravasation. 2.Mild pooling of barium in the valleculae upon swallowing. 3.Please see speech pathology report for full details. Electronically signed by Gian Shah 01/29/2019 2:55 PM
--- NOTE | 2019-01-29 19:32 | PROVIDER PROGRESS NOTE ---
Progress Note SUBJECTIVE: Ms. Butt 89-year-old female resting in bed, c/o of nausea and vomiting, not feeling good, unable to eat, generalized abdominal pain, denied any bowel movements today. OBJECTIVE: Vital signs: Temperature is 98.1 degrees, pulse is 79, respirations are 20, blood pressure is 107/72, oxygen saturation is 97% on RA. Weight 121.8 pounds, BMI 27.4 kg per meter square. General: Alert, oriented x3, and in no acute distress. HEENT: Pale conjunctivae. No icterus. PERRL. Neck: Supple. Lungs: Clear to auscultation anterior and posterior long. Heart: Regular rate and rhythm. No murmurs, rubs, or gallops heard on auscultation. Abdomen: Soft, tender, nondistended. Active bowel sounds heard in all 4 quadrants. Extremities: No cyanosis, no clubbing. Generalized edema noted bilaterally. Pedal pulses 2+ present bilaterally. Neurologic: Alert, oriented x3. LABORATORY DATA: WBC 6.18, RBC 3.64, hemoglobin 9.2, hematocrit is 32.1, [place] [address]. Sodium is 141, potassium is 4.1, BUN is 19, creatinine is 1.3, glucose is 83, phosphorus 3.1, magnesium is 2.1. Urinalysis showed trace of protein, blood, ketones and small amounts of leukocytes. Urine culture on 01/23/19 showed no growth, abdomen x-ray showed mild constipation and chest x- ray showed congestive heart failure. IMPRESSION AND PLAN: Anemia GI bleed N/V Dysphasia Status post bioprosthetic aortic valve Status post pacemaker CKD Hypothyroid UTI Jennifer Rollins Tear Blood clots PLAN: We have ordered an upper GI barium swallow series, patient is still having nausea, vomiting and unable tolerate her diet. We will put her on carafate 1 gram liquid, if she is still not improving then we will prescribe her marinol for her appetite. We will continue patient with Protonix 40 mg IV twice a day for her GI bleed,antiemetic, Zofran PRN for nausea and vomiting and Iron tablets for anemia. She is receiving Azactam for her UTI. We will continue with miralax and colace for her constipation. Her H & H today was 9.2 and 32.1, will continue to monitor her CBC and BMP, follow the plan of care per PCP and Infectious disease team. This plan was discussed with Dr. Woods. Please call us for any further questions or concerns. (Denise Coleman) I have seen and examined the patient myself and I agree with the above plan of care. I have discussed the above with the patient and family and all questions were answered. Please call us with any further questions. (Agustin Woods.)
[2019-01-29] MEDS: DULCOLAX PR SCH (21:05)
[2019-01-29] MEDS: DESYREL PO SCH (21:06)
[2019-01-30] MEDS: CARAFATE LIQUID PO SCH ×4 (03:07→20:59)
--- NOTE | 2019-01-30 07:03 | Diag Imaging Result Doc PS360 ---
CHEST-PORTABLE - 01/30/2019 INDICATION: dyspnea COMPARISON: 01/25/2019 FINDINGS: Stable sternotomy wires. Stable pacemaker. Stable severe cardiomegaly and pulmonary vascular congestion. Stable bibasilar opacifications that are nonspecific. These represent any combination of effusions, atelectasis or infiltrate. IMPRESSION: No change from prior. Electronically signed by Rommel Childress 01/30/2019 7:01 AM
[2019-01-30 07:23] LABS: HEMATOCRIT 29.2 % (37.0-47.0); HEMOGLOBIN 10.1 g/dL (12.0-16.0); MCH 32.5 PG (27-31); MCHC 34.6 g/dL (33-37); MCV 93.9 FL (81-99); MPV 11.4 FL (7.4-10.4); RBC 3.11 XMIL (4.2-5.4); RDW 26.8 % (11.5-14.5); WBC 7.83 X1000 (4.8-10.8)
[2019-01-30 07:33] LABS: ALB/GLOB RATIO 0.9; ALBUMIN 2.7 g/dL (3.5-5.0); CREATININE 1.3 mg/dL (0.5-0.9); MAGNESIUM 2.3 mg/dL (1.5-2.7); TOTAL BILIRUBIN 0.44 mg/dL (0.20-1.00); TOTAL PROTEIN 5.7 g/dL (6.3-8.3)
[2019-01-30] MEDS: MIRALAX PO SCH (10:00)
[2019-01-30] MEDS: ZOFRAN ODT PO PRN ×2 (10:00→15:01)
[2019-01-30] MEDS: LACTULOSE PO SCH ×2 (11:01→21:01)
[2019-01-30] MEDS: COLACE PO SCH ×2 (11:01→21:02)
[2019-01-30] MEDS: PROTONIX PO SCH ×2 (11:01→20:57)
[2019-01-30] MEDS: ICAR-C PO SCH ×2 (11:01→20:57)
[2019-01-30] MEDS: LASIX PO SCH ×2 (11:01→20:57)
--- NOTE | 2019-01-30 14:45 | GASTROENTEROLOGY PROGRESS NOTE ---
DATE: 01/30/2019 SUBJECTIVE: Ms. Butt is an 89-year-old female, resting in bed. Family at bedside. Denied any nausea and vomiting today. C/o of generalized tenderness in the lower abdomen, she he had 2 bowel movements today per family members, and described as formed stools. Per family members she was able to eat a little bit of her breakfast without being nauseated. OBJECTIVE: Vital Signs: Temperature is 97.7 degrees, pulse is 75, respirations are 12, blood pressure is 104/55, oxygen saturation is 91% on room air. Her weight is 121.8 pounds. BMI is 27.4 kg/m2. General: She is alert and oriented x3, in no acute distress. HEENT: Pale conjunctivae. No icterus. PERRL. Neck: Supple. Lungs: Clear to auscultation in the anterior and posterior long. Cardiovascular: Regular rate and rhythm. No murmurs, rubs, or gallops on auscultation. Abdomen: Soft, nontender, nondistended. Active bowel sounds heard in all 4 quadrants. Extremities: No cyanosis, no clubbing. Generalized edema noted. Pedal pulses 2+ present bilaterally. Neurologic: Alert, oriented x3. LAB: WBCs 7.83, RBC 3.11, hemoglobin is 10.1, hematocrit is 29.2, platelet count is 87,000. Sodium is 137, potassium is 4.0, chloride is 99, carbon dioxide is 26, anion gap is 12, BUN is 17, creatinine is 1.3, glucose is 85, calcium is 8.0, magnesium is 2.3. Urinalysis from 01/25 showed a trace of protein, trace of ketones, trace blood, large amount of leukocytes. IMAGING: Chest x-ray showed no change from prior. Chest x-ray on 01/23 showed congestive heart failure. Abdominal x-ray showed mild constipation. Her barium swallow on the upper GI showed no evidence of perforation. Indeterminate frothy material in the stomach. Barium swallow with video speech therapy showed stable hiatal hernia with no contrast extravasation. Mild pooling of the barium in the valleculae upon swallowing and they have recommended a speech pathologist. IMPRESSION AND PLAN: Anemia GI bleed Nausea and vomiting Dysphagia S/P bioprosthetic aortic valve S/P pacemaker CKD Hypothyroid UTI Jennifer Rollins tear Blood clots PLAN: The patient had an upper GI barium swallow series, it showed stable hiatal hernia without contrast extravasation. Mild pooling of the barium at the vallecula upon swallowing, and they have recommended a speech pathologist. I spoke to the primary care provider and he has ordered the speech pathologist to evaluate her. She has denied any nausea, vomiting, and was able to tolerate her breakfast. We will continue her with Carafate and Protonix 40 IV twice a day for her GI bleed, antiemetics, Zofran PRN for nausea and vomiting, iron for her anemia, and continue with Colace, MiraLAX and Dulcolax for her constipation. Her H & H was 10 and 29.2, will continue to monitor her CBC and BMP, and continue to follow the plan of care per PCP. Addressed all the question and concerns of family members and discussed the plan of care. This plan was discussed with Dr. Rea. Please call us with any further questions or concerns. Dictated by TIN Pérez for Mikal Rea MD cc: Mikal Rea MD [facility]
--- NOTE | 2019-01-30 18:39 | PROGRESS NOTE ---
DATE: 01/30/2019 INTERVAL HISTORY: The patient doing well. The patient's respiratory status remains stable. No further signs or symptoms of bleeding. Nausea and vomiting improved this morning, but returned over the course the day. No new complaints or issues. Wheezing minimal at this point. No acute events overnight. No new complaints. The patient did well with physical therapy. REVIEW OF SYSTEMS: Twelve point review of systems negative except as per interval history. LABS: WBC 7.8, hemoglobin 10.1, hematocrit 29.2, platelets 87,000. Sodium 137, potassium, BUN 17, creatinine 1.3. LFTs within normal limits. IMAGING: Chest x-ray was essentially stable from previous. Some mild pulmonary vascular congestion. VITALS: T-max 98.5 degrees, pulse 72, respirations 20, blood pressure 114/50, O2 saturation 91% on room air. PHYSICAL EXAMINATION: General: No acute distress. Vitals: As above. HEENT: Normocephalic, atraumatic. Moist mucous membranes. No cervical adenopathy. Cardiovascular: Regular rate and rhythm. Pulmonary: No wheezing. Slightly decreased air entry throughout. No wheezing, rales or rhonchi noted. Abdomen: Soft, nontender, nondistended. Bowel sounds positive. Extremities: Peripheral pulses intact. No clubbing or cyanosis. Neurologic: Cranial nerves grossly intact. No focal deficits identified. Psychiatric: Normal mood and affect. Awake, alert, oriented x3. Skin: No new rashes or lesions identified. ASSESSMENT AND PLAN: 1. Gastrointestinal bleed. The patient's upper gastrointestinal barium swallow showed a hiatal hernia and some pooling of barium in the vallecula on swallowing for which speech pathology was recommended. We will put that in. Blood counts remained stable with no signs of further bleeding. Jennifer-Rollins tear is the suspected issue. Still with intermittent nausea and vomiting. It was somewhat improved this morning, but reports that she was again vomiting with lunch. We will continue to try to control her nausea and vomiting and let speech see her. Anticipate discharge to half-way facility once she is able to take p.o. reliably. 2. Nausea and vomiting. Source unclear. We will continue adjusting medications and try to control it. 3. Acute on chronic diastolic congestive heart failure, improved with Lasix. Reasonable diuresis. Respiratory status pretty good at this point. Monitor. 4. Chronic kidney disease 3. Creatinine roughly stable. Monitor. 5. Bioprosthetic aortic valve noted. DISPOSITION: Anticipate discharge to SNF once we get her to a place where she can reliably take p.o.
[2019-01-30] MEDS: DESYREL PO SCH (20:57)
[2019-01-30] MEDS: DULCOLAX PR SCH (21:02)
[2019-01-31] MEDS: CARAFATE LIQUID PO SCH ×4 (03:28→21:12)
[2019-01-31] MEDS: LACTULOSE PO SCH ×2 (08:18→21:12)
[2019-01-31] MEDS: LASIX PO SCH ×2 (08:19→21:12)
[2019-01-31] MEDS: MIRALAX PO SCH (08:19)
[2019-01-31] MEDS: ICAR-C PO SCH ×2 (08:19→21:12)
[2019-01-31] MEDS: COLACE PO SCH ×2 (08:19→21:12)
[2019-01-31] MEDS: PROTONIX PO SCH ×2 (08:19→21:12)
--- NOTE | 2019-01-31 12:28 | GASTROENTEROLOGY PROGRESS NOTE ---
DATE: 01/31/2019 SUBJECTIVE: Ms. Butt 89 year old female, sitting bed having her breakfast. Denied having any diarrhea but c/o of N/V. OBJECTIVE: Vital Signs: Temperature is 98.0 degrees, pulse is 74, respirations 16, blood pressure is 114/66, oxygen saturation is 95% on room air. General: She is alert, oriented x3, in no acute distress. Her weight is 121.8 pounds. BMI is 27.4 kg/m2. HEENT: Pale conjunctivae. No icterus. PERRL. Neck: Supple. Lungs: Clear to auscultation in the anterior and posterior long. Cardiovascular: Regular rate and rhythm. No murmurs, rubs, or gallops heard on auscultation. Abdomen: Soft, generalized tenderness, nondistended. Active bowel sounds heard in all 4 quadrants. Extremities: No cyanosis, clubbing. Generalized edema. Pedal pulses 2+ present bilaterally. Neurologic: Alert, oriented x3. LABS: WBC 7.83, RBCs 3.11, hemoglobin is 10.1, hematocrit is 29.2, platelet count is 87,000. Sodium is 137, potassium is 4.0, chloride is 99, carbon dioxide is 26, anion gap is 2. BUN is 17, creatinine 1.3, glucose 85, calcium 8.0, magnesium is 2.3. IMAGING: Chest x-ray showed no change from the prior. IMPRESSION AND PLAN: 1. Anemia. 2. Gastrointestinal bleed. 3. Nausea, vomiting, dysphagia. 4. Status post bioprosthetic aortic valve. 5. Status post pacemaker. 6. Chronic kidney disease. 7. Hypothyroid. 8. Urinary tract infection. 9. Jennifer-Rollins tear. 10. Blood clots. PLAN: The patient is on a full liquid diet, and is still having N/V.We have added Reglan 5 mg IV BID for her nausea and vomiting, made a note to hold medication for side effects like tardive dyskinesia. We will continue the GI prophylaxis, Carafate and Protonix 40 mg IV twice a day for her GI bleed, antiemetic Zofran PRN for nausea and vomiting. Continue multivitamins and iron for anemia. Continue Colace, MiraLAX and Dulcolax for her constipation. Her hemoglobin and hematocrit today was 10.1 and 29.2. We will monitor the CBC and BMP, and continue to follow the plan of care per primary care provider. This plan was discussed with Dr. Woods. Please call us with any further questions or concerns. Dictated by TIN Pérez for Agustin Woods MD cc: Agustin Woods MD Patient seen and examined and I agree with the above plan of care. Discussed the above plan of care with the patient and al questions were answered. Please call us with any further questions. CHANTEL
--- NOTE | 2019-01-31 15:15 | PROGRESS NOTE ---
DATE: 01/31/2019 INTERVAL HISTORY: Patient still with some intermittent nausea and vomiting. Did well with breakfast yesterday but had some vomiting after lunch. This morning did well with breakfast initially, but later did have some vomiting. At the time of my exam had just finished lunch and appeared to be doing okay. Discussed this with the patient. She does state that the Zofran helps when she gets it. Discussed with nursing and reviewed the medical record and it appears that the patient is seldom asking for it. No other acute events. No new complaints. REVIEW OF SYSTEMS: Twelve point review of systems negative except as per interval history. LABS: WBC 7.8, hemoglobin 10.1, hematocrit 29.2, platelets 87,000. Basic metabolic panel unremarkable aside from BUN 17, creatinine 1.3. LFTs within normal limits. VITAL SIGNS: T-max 98.5 degrees, pulse 71 respirations 16, blood pressure 100/61, O2 saturation 96% on room air. PHYSICAL EXAMINATION: General: No acute distress. Chronically ill appearing. Vital signs: As above. HEENT: Normocephalic, atraumatic. Moist mucous membranes. No cervical adenopathy. Cardiovascular: Regular rate and rhythm. No murmurs noted. Pulmonary: Clear to auscultation bilaterally aside from minimally decreased air entry throughout. No wheezing, rales, or rhonchi. Abdomen: Soft, nontender, nondistended. Bowel sounds positive. Extremities: Peripheral pulses intact. No clubbing or cyanosis. Neurologic: Cranial nerves grossly intact. No focal deficits identified. Mild global weakness. Psychiatric: Normal mood and affect. Awake, alert, cooperative. Skin: No new rashes or lesions identified. ASSESSMENT AND PLAN: 1. Gastrointestinal bleed. The patient had a barium swallow which showed hiatal hernia and some pooling of barium in the vallecula on swallowing, for which a speech pathology was recommended. We have consulted them. Blood counts remain stable, actually somewhat improved this morning. Jennifer-Rollins tear was the suspected source of her bleeding. Intermittent nausea and vomiting improving but not entirely resolved. Appears to improve with Zofran but patient sometimes just does not ask for it. We will schedule the Zofran with her meals and see if that fixes the issue. If the patient tolerates p.o. today, then hopefully can discharge to rehab tomorrow. 2. Nausea and vomiting. Adjusting Zofran as above. 3. Acute on chronic diastolic congestive heart failure. Improved with Lasix. Respiratory status stable. Essentially resolved at this point. Continue current dose of Lasix. 4. Chronic kidney disease 3. Creatinine remains roughly stable. 5. Bioprosthetic aortic valve. Noted. 6. Disposition. Final adjustment of Zofran. As long as she does relatively well with p.o. intake today, anticipate discharge to SNF tomorrow.
[2019-01-31] MEDS ORDERED: REGLAN IV SCH (16:00)
[2019-01-31] MEDS: ZOFRAN ODT PO SCH (16:37)
[2019-01-31] MEDS: DULCOLAX PR SCH (21:12)
[2019-01-31] MEDS: DESYREL PO SCH (21:12)
[2019-01-31] MEDS: REGLAN PO SCH (21:13)
[2019-02-01] MEDS: CARAFATE LIQUID PO SCH ×5 (04:43→22:20)
[2019-02-01] MEDS: ZOFRAN ODT PO SCH ×3 (06:15→15:47)
[2019-02-01] MEDS: COLACE PO SCH ×2 (08:15→22:19)
[2019-02-01] MEDS: MIRALAX PO SCH (08:15)
[2019-02-01] MEDS: ICAR-C PO SCH ×2 (08:15→22:19)
[2019-02-01] MEDS: LACTULOSE PO SCH ×2 (08:15→22:19)
[2019-02-01] MEDS: PROTONIX PO SCH ×2 (08:15→22:19)
[2019-02-01] MEDS: LASIX PO SCH ×2 (08:15→22:19)
[2019-02-01] MEDS: REGLAN PO SCH ×3 (08:15→15:47)
[2019-02-01 08:59] LABS: HEMATOCRIT 35.9 % (37.0-47.0); HEMOGLOBIN 11.3 g/dL (12.0-16.0); MCHC 31.5 g/dL (33-37); MCV 92.3 FL (81-99); MPV 10.8 FL (7.4-10.4); RBC 3.89 XMIL (4.2-5.4); WBC 6.2 X1000 (4.8-10.8)
[2019-02-01 09:20] LABS: CALCIUM 8.5 mg/dL (8.8-10.2); CREATININE 1.3 mg/dL (0.5-0.9); POTASSIUM 3.9 mmol/L (3.5-5.1)
--- NOTE | 2019-02-01 12:38 | GASTROENTEROLOGY PROGRESS NOTE ---
DATE: 02/01/2019 SUBJECTIVE: Ms. Butt is an 89-year-old female. She was sitting in the bed, nurse at the beside giving her morning medications. The patient is still having nausea and vomiting, but has denied any diarrhea. OBJECTIVE: Vital signs: Temperature 97.5 degrees, pulse 70, respirations are 20, blood pressure is 120/52, and oxygen saturation is 99% on room air. Her weight is 121.8 pounds. BMI is 27.4 kg/m2. General: She is alert and oriented x3 and in no acute distress. HEENT: Pale conjunctivae. No icterus. PERRL. Neck: Supple. Lungs: Clear to auscultation in anterior and posterior long. Cardiac: Regular rate and rhythm. No murmurs, rubs, or gallops heard on auscultation. Abdomen: Soft. Generalized tenderness. Nondistended. Active bowel sounds heard in all 4 quadrants. Extremities: No cyanosis or clubbing. Generalized edema. Pedal pulses 2+ bilaterally present. Neurologic: Alert and oriented x3. LABORATORY: WBC 6.20, RBCs 3.89, hemoglobin 11.3, hematocrit 35.9, and platelet count 112,000. Sodium of 114, potassium 3.9, chloride 99, carbon dioxide is 29, gap of 12, BUN 16, and creatinine 1.3. Glucose 81, calcium 5.5, and magnesium 2.2. Chest x-ray has shown no change from prior. Abdominal x-ray on 01/25 showed that she had mild constipation. Barium UGI did not show any extravasation and showed the contrast making its way to the stomach. IMPRESSION AND PLAN: Anemia GI bleed. Nausea and vomiting Dysphagia. Status post by prosthetic aortic valve. Status post pacemaker. Chronic kidney disease. Hypothyroid. Urinary tract infection. Jennifer-Rollins tear. Blood clots. PLAN: The patient is on a full liquid diet, but still having nausea and vomiting. We will give her Reglan 5 mg p.o. 3 times a day for nausea and vomiting, advised nursing staff to monitor for side effect of Reglan, tardive dyskinesia, and also Zofran PRN if needed. We will continue to give her Carafate and Protonix 40 mg twice a day for her GI bleed. We will continue with her multivitamins and iron for her anemia. For constipation, we will continue Colace, MiraLAX and Dulcolax. Her hemoglobin and hematocrit today was 11.3 and 35.9, it has been trending upwards. We will continue to monitor her CBC and BMP. We will also continue to follow the plan of care of her primary care provider. This plan was discussed with Dr. Woods. Please call us with any further questions or concerns. Dictated by TIN Pérez for Agustin Woods MD cc: Agustin Woods MD I have seen and examined the patient myself and I agree with the above plan of care. Discussed the above with the patient at bedside and all questions were answered. Please call us with any further questions. CHANTEL
[2019-02-01] MEDS ORDERED: CARAFATE LIQUID PO SCH (14:00)
--- NOTE | 2019-02-01 14:47 | PROGRESS NOTE ---
DATE: 02/01/2019 INTERVAL HISTORY: The patient's acute issues with bleeding appear to be resolved. Blood count is doing well, but still with intermittent vomiting after meals. Otherwise, no new complaints. No acute events overnight. REVIEW OF SYSTEMS: A 12-point review of systems is negative, except as per interval history. LABORATORY DATA: WBC 6.2, hemoglobin 11.3, hematocrit 35.9, platelets 112,000. Basic metabolic panel significant only for a creatinine of 1.3, which is stable. OBJECTIVE: Vital Signs: T-max 98.4 degrees, pulse 84, respirations 12, blood pressure 107/67, O2 saturation 96% on room air. General: No acute distress. Chronically ill appearing. HEENT: Normocephalic, atraumatic. Moist mucous membranes. No cervical adenopathy. Cardiovascular: Regular rate and rhythm. LUSB murmur stable. Pulmonary: Clear to auscultation bilaterally, aside from stable minimally decreased air entry throughout. No wheezing, rales, or rhonchi. Abdomen: Soft, nontender, nondistended. Bowel sounds positive. Extremities: Peripheral pulses intact. No clubbing or cyanosis. Neurologic: Mild global weakness, but no focal deficits. Psychiatric: Normal mood and affect. Awake, alert, cooperative. Skin: Stable rash across cheeks, but no new lesions seen. ASSESSMENT AND PLAN: 1. Gastrointestinal bleed. Jennifer-Rollins tear identified. Blood counts improving. Stable from this standpoint. 2. Intractable nausea and vomiting. Patient with continued vomiting after meals. Gastrointestinal workup showed no clear mechanical problem. Scheduled Zofran yesterday with minimal improvement, but still having some vomiting. Reglan added. Will see if that addresses the issue. 3. Acute on chronic diastolic congestive heart failure, improved with Lasix. Essentially stable at this point. Continue current dose of Lasix. 4. Chronic kidney disease 3. Creatinine stable. Monitor. 5. Bioprosthetic aortic valve. Noted. 6. Disposition. Further adjustment in medications to try to control her issues with vomiting. If the patient can reliably take by mouth, then I anticipate discharge to senior care facility possibly tomorrow. [facility]
[2019-02-01] MEDS: DESYREL PO SCH (22:19)
[2019-02-01] MEDS: DULCOLAX PR SCH (22:20)
[2019-02-02] MEDS: CARAFATE LIQUID PO SCH ×2 (03:41→08:59)
[2019-02-02] MEDS: ZOFRAN ODT PO SCH ×2 (06:07→11:41)
[2019-02-02] MEDS: REGLAN PO SCH ×2 (06:07→11:41)
[2019-02-02] MEDS: MIRALAX PO SCH (08:59)
[2019-02-02] MEDS: COLACE PO SCH (08:59)
[2019-02-02] MEDS: LACTULOSE PO SCH (08:59)
[2019-02-02] MEDS: ICAR-C PO SCH (08:59)
[2019-02-02] MEDS: LASIX PO SCH (09:00)
[2019-02-02] MEDS: PROTONIX PO SCH (09:00)
--- NOTE | 2019-02-02 10:22 | DISCHARGE SUMMARY ---
ADMISSION DATE: 01/22/2019 DISCHARGE DATE: 02/02/2019 ADMISSION DIAGNOSES: 1. Acute blood loss anemia. 2. Gastrointestinal bleeding. 3. Bioprosthetic aortic valve with severe aortic stenosis. 4. Chronic kidney disease. 5. Sick sinus syndrome with pacemaker. 6. Suspected esophageal achalasia versus stricture requiring dilatation in 2019 with hiatal hernia. 7. Hypothyroidism. 8. Chronic kidney disease with stage IV. 9. Resuscitation status. Do Not Resuscitate level 1. DISCHARGE DIAGNOSES: 1. Gastrointestinal bleed with acute blood loss anemia with Jennifer-Rollins tear. 2. Intractable nausea, vomiting. 3. Acute on chronic diastolic congestive heart failure that improved with Lasix. 4. Chronic kidney disease stage III. 5. Bioprosthetic aortic valve. CONSULTATIONS: 1. Hospice Care. 2. Palliative Care. 3. Gastroenterology with Dr. Woods. 4. Dr. Mead, I believe secondary to the Jennifer-Rollins tear. SURGERIES AND PROCEDURES: 1. Dr. Mead did not do any surgeries or procedures. She was eventually hemodynamically stable, did not require it and apparently it was a difficult problem and if the patient would have changed her mind, they would have recommended transfer to [facility] for cardiothoracic surgery evaluation as well as Interventional Radiology. 2. On 01/22/2019, Dr. Woods performed an EGD which showed large amounts of blood and clots in the distal esophagus, partially evacuated one large adherent clot in the distal esophagus likely representing Jennifer-Rollins tear. Surgeon was called in the OR. Blood and clots and food noted in the stomach body. The duodenal mucosa showed no abnormalities in the duodenal bulb, the 1st part of the duodenal bulb and 2nd part of the duodenum, so the recommendations he had was surgery consult to evaluate the distal esophageal tear. Also recommended CT chest and abdomen, IV antibiotics, proton pump inhibitor twice daily. Serial hemoglobin and hematocrit to transfuse as needed. Pulmonary consult for airway management and to keep her n.p.o., and then she was transferred to the ICU. I do not believe that pulmonary was ever consulted for airway management. HOSPITAL COURSE: On 01/22/2019, Ms Radha Herrera, an 89-year-old, female, presented to the emergency department secondary to spitting up blood the morning of admit. Apparently, she had been having trouble swallowing over the last several months, and so Dr. eRa did an EGD with dilatation of her esophagus and so then 10 days prior to presenting to the emergency department, she would be spitting out food particles and mucousy material on and off. She lives in an assisted living but it was noted that the morning of, she was spitting out blood. She was hemodynamically stable but was constantly continuing to spit out blood and her hemoglobin was down to 6.8. She has kidney chronic kidney disease as well on top of that. She was started on Protonix. She was initiated with some blood. She was made a Do Not Resuscitate level 1. Dr. Woods was consulted. Was sent for EGD but was found to have a large area of distal esophageal clot that was thought to be a Jennifer-Rollins tear. Dr. Mead was consulted in. No surgical procedure was performed on that. She was continued on the Protonix. After discussion with Dr. Mead, there were 3 options. 1) Transferring her to [facility] for cardiothoracic evaluation. 2) transferring to [facility] for possible intervention radiology- guided embolization which would involve introducing contrast in somebody that has CKD stage 4, or 3) Managing her optimal medical treatment including antacids, intravenous fluids, blood transfusions as needed. The family were given those options and the patient wanted to stay at [facility] and just do medical care rather than going to [facility] for more aggressive measurements. So she was continued in the ICU for medical management of her Jennifer- Rollins tear and intractable nausea, vomiting. She had a followup esophagram which was negative for any kind of perforation. Postprocedure, her hemoglobin remained stable. She was also being treated for the urinary tract infection. She was started on clear liquids and diet was advanced. She was transitioned from IV Protonix to p.o. for at least an 8 to 12 week regimen and the goal hemoglobin was 7 to 8. Total blood transfusions was 2 units. With all volume, she did have some volume overload, showed up as peripheral edema and pulmonary edema on the chest x-ray. She was started on diuretics for that and they had to monitor the chronic kidney disease closely. Urinary tract infection came back as E coli that had resistance to Levaquin and intermittent resistance to ampicillin. Eventually her diet was advanced to a GI soft diet. She continued on Azactam for the UTI. Eventually, Physical Therapy was consulted to increase mobilization. Palliative Care was consulted for any changes in goals of care. An abdominal x- ray showed constipation. Apparently for a little while, she did not tolerate mechanical soft so they had decreased her back to a full liquid in added Ensure. With the constipation, MiraLAX and Colace was started. She was starting to have some insomnia so they added trazodone. She was starting to have some thrombocytopenia so they watched that as well. For the diastolic congestive heart failure, she was still on the diuretics. For the iron deficiency anemia, she was initiated on iron supplementation. The thrombocytopenia eventually started to improve on its own. The E coli UTI resolved, was taken off antibiotics by 01/28/2019. She was even not able to tolerate the full liquid diet and a barium swallow was ordered on the 29 of January. There was mention about consulting hematology for the thrombocytopenia but I do not believe it was ever done and the platelet count improved on its own. She was placed on Carafate to coat the stomach and she was given Marinol to increase her appetite. Barium swallow showed hiatal hernia, and pooling of barium in the vallecula. Really it was unclear as to why she just kept having nausea and vomiting, but she was kept on a full liquid diet, added Reglan to increase motility. Reglan 5 mg IV twice a day, Carafate every 6 hours, Protonix twice a day. Zofran for nausea. MiraLAX and Dulcolax for her constipation. Eventually was stable for discharge. Her IV Reglan was changed to p.o. 3 times a day. DISCHARGE VITAL SIGNS: Temperature 97.5 degrees, heart rate 61, respiratory rate 18, blood pressure 104/65, O2 saturation 95% on room air. LABORATORY DATA: White blood cells 6000, hemoglobin 11, hematocrit 35, platelet count 112,000. Sodium 140, potassium 3.9, BUN 16, creatinine 1.3, glucose 81, calcium 8.5. ProBNP 9639, that was back on the . Micro E coli in the urine on the 22 of January. It was indeterminate, resistance to ampicillin and resistant to levofloxacin. A repeat on 01/25/2019 of the urine was no growth. PERTINENT IMAGIN. On 01/22/2019, barium swallow. No evidence of perforation. Indeterminate frothy material in the stomach. 2. Chest x-ray on 01/23/2019. Congestive heart failure. 3. Abdominal x-ray on 01/25/2019, mild constipation. 4. Chest x-ray on 01/30/2019. No change from prior. 5. There were no EKGs but telemetry showed a paced rhythm. 6. On 01/29/2019, had a speech modified barium swallow. Showed stable hiatal hernia with no contrast extravasation, mild pooling of barium in the vallecula upon swallowing, and the speech therapy report for the same day states that the patient is able to adequately protect her airway with swallowing. [id number] risk for proximal direction of swallowed food and liquids to the upper esophagus and penetration into the pharynx with airway penetration, aspiration likely, particularly during hours of sleep. Of note, the patient's of follow strict gastric reflux precautions and continue the medications to suppress gastric acid and protect the esophageal gastric surfaces. DISCHARGE DIET: Heart healthy diet. That was started yesterday with Ensure. DISCHARGE ACTIVITY: As tolerated. DISCHARGE PHYSICIAN FOLLOWUP: Dr. Stacie Zuleta. Probably should add she needs to follow up Dr. Woods. DISCHARGE MEDICATIONS: 1. Aspirin enteric-coated 81 mg p.o. daily. 2. Simvastatin 20 mg p.o. daily. 3. Synthroid 75 mcg p.o. daily. 4. Toprol-XL 25 mg p.o. daily. 5. Vitamin D3, 2000 units p.o. daily. 6. Colace 100 mg p.o. twice daily. 7. Trazodone 50 mg p.o. nightly p.r.n. 8. Bisacodyl suppository 10 mg per rectum every night p.r.n. 9. Icar-C one tab p.o. twice daily. 10. Lasix 40 mg p.o. twice daily. 11. MiraLAX 17 g p.o. daily. 12. Protonix 40 mg p.o. twice daily. 13. Reglan 5 mg p.o. t.i.d. p.r.n. 14. Zofran 4 mg p.o. q.6 hours p.r.n. 15. Zofran 4 mg p.o. t.i.d. before meals. DISCHARGE INSTRUCTIONS: Will be per short-term nursing facility. If vomiting blood, please seek emergent medical attention in the emergency department. DISCHARGE DISPOSITION: [facility]. Dictated by TIN Thakkar for Shahid Collado MD cc: TIN Thakkar agree with the above. the following is my own face to face assessment. occasionally burps and spits out a tiny amount of food but no further vomiting. continuing her on zofran and reglan for now but would recommend stopping the reglan in a few days if she continues to do well. blood counts stable at this point and lungs clear to auscultation. MTDD
[2019-02-02 12:06] VITALS: BP 111/64
--- NOTE | 2019-02-02 13:05 | GASTROENTEROLOGY PROGRESS NOTE ---
DATE: 02/02/2019 SUBJECTIVE: Ms. Butt is an 89-year-old female sitting in the bed having her breakfast. Today, she has denied any nausea, vomiting, diarrhea, but did c/o of generalized abdominal tenderness. OBJECTIVE: Vital Signs: Temperature 97.5 degrees, pulse is 61, respirations 18, blood pressure is 104/65, oxygen saturation is 95% on room air. Her weight is 121.8 pounds. BMI is 27.4 kg/m2. General: She is alert, oriented x3, and in no acute distress. HEENT: Pale conjunctivae. No icterus. PERRL. Neck: Supple. Lungs: Clear to auscultation in anterior and posterior long. Cardiac: Regular rate and rhythm. No murmurs, rubs, or gallops heard on auscultation. Abdomen: Soft, generalized tenderness. Nondistended. Active bowel sounds heard in all 4 quadrants. Extremities: No cyanosis or clubbing. Generalized edema in the lower extremities. Pedal pulses 2+ present bilaterally. Neurological: Alert, oriented x3. LABS: WBC 6.20, RBCs 3.89, hemoglobin 11.3, hematocrit 35.9, platelet count 100,000. Sodium 140, potassium 3.9, chloride 99, carbon dioxide 29. Anion gap 12. BUN 16, creatinine is 1.3, calcium is 8.5. Chest x-ray on 01/30 showed no changes from the prior. IMPRESSION AND PLAN: Anemia GI bleed Nausea and Vomiting Dysphagia S/P prosthetic aortic valve S/P pacemaker CKD Hypothyroid UTI Jennifer-Rollins tear Blood clots PLAN: The patient is on a regular diet, and she was able to tolerate diet fairly well. We will continue her with Reglan 5 mg PO 3 times a day for nausea and vomiting. We will also give her Zofran PRN if needed. Continue with GI prophylaxis, Carafate QID and Protonix PO twice a day. Bowel prophylaxis, lactulose, Dulcolax, MiraLAX and Colace. We will continue her iron for her anemia. The patient's nausea and vomiting has been improving. Continue to monitor patient's CBCs and BMP's and also follow the plan of care with the primary care provider. This plan was discussed with Dr. Rea. Please call us with any further questions or concerns. Dictated by TIN Pérez for Mikal Rea MD cc: Mikal Rea MD [facility]ITAL[facility]mber
== END 2019-02-02 14:21 | DRG 368 ==
LOC: SUPCPDRO → ED 09:17 → ICU 11:48 → SUATTDRO 11:48 → 3N 01-24 01:35
PROVIDERS: ATTEND Internal Medicine

== ENCOUNTER 2019-04-09 12:17 | Inpatient (IN) ==
[2019-04-09] MEDS ORDERED: LASIX IV ONE (13:41)
--- NOTE | 2019-04-09 14:10 | PROVIDER DOCUMENTATION ---
This chart was entered by Ida Brody Scribe, acting as scribe for Morenita Perdomo MD. HPI-General Adult - General Chief Complaint: Edema Stated Complaint: EDEMA Time Seen by Provider: 04/09/19 12:49 Source: patient, family Allergies/Adverse Reactions: Patient Allergies Allergy/AdvReac Type Severity Reaction Status Date / Time Penicillins Allergy Severe ANAPHYLAXIS Verified 01/22/19 09:41 Home Medications: Home Medication List Medication Instructions Recorded Confirmed Last Taken Type Aspirin EC 81 mg PO DAILY 02/05/13 01/22/19 01/21/19 History Levothyroxine [Synthroid] 75 microgm PO DAILY 02/05/13 01/22/19 01/21/19 History Cholecalciferol (Vitamin D3) 1 tab PO DAILY 01/22/19 01/22/19 01/21/19 History [Vitamin D3] Metoprolol Succinate E.r. [Toprol 1 tab PO DAILY 01/22/19 01/22/19 01/21/19 History Xl] Simvastatin 1 tab PO DAILY 01/22/19 01/22/19 01/21/19 History Bisacodyl [Dulcolax] 10 mg [place] QPM PRN PRN supp 02/02/19 Unknown Rx Docusate Sodium [Colace] 100 mg PO BID cap 02/02/19 Unknown Rx Furosemide [Lasix] 40 mg PO BID tab 02/02/19 Unknown Rx Iron Carbonyl/Ascorbic Acid 1 ea PO BID tab 02/02/19 Unknown Rx [Icar-C] Metoclopramide [Reglan] 5 mg PO TID PRN PRN tab 02/02/19 Unknown Rx Ondansetron Odt [Zofran Odt] 4 mg PO Q6H PRN PRN tab 02/02/19 Unknown Rx Ondansetron Odt [Zofran Odt] 4 mg PO TID AC tab 02/02/19 Unknown Rx Pantoprazole [Protonix] 40 mg PO BID tab 02/02/19 Unknown Rx Polyethylene Glycol 3350 [Miralax] 17 gm PO DAILY powder, packet 02/02/19 Unknown Rx Trazodone [Desyrel] 50 mg PO QPM PRN PRN #30 tab 02/02/19 Unknown Rx - History of Present Illness -Gen Adult Nature of Presenting Problems: Patient is an 89 y/o female presenting to the ED today c/o bilateral lower extremity edema and cough/wheezing. Patient's pocket cutter provides report. Patient has been experiencing cough, congestion, and weeping since last Tuesday. Patient had a CXR at the assisted living facility where she resides which they report was negative for pneumonia. Patient was started on nebulizer treatments BID on Tuesday. Caregiver states that over the last month, patient has had increased swelling in bilateral lower extremities along with weeping up past the thighs. Patient was on Lasix BID until 03/29 when she was swapped to Torsemide 5 mg BID which was increased to 10 mg BID until today. Patient has history of a bovine heart valve replacement in 2003 and reports that it is not functioning properly. Patient reports she had an esophageal perforation in December. Denies fever. Denies all other signs/symptoms. She is a DNR Location of Pain/Injury: reports: none Onset/Duration: reports: 5 days ago Timing: reports: getting worse Associated Symptoms: reports: cough, sinus congestion/drainage, other (bilateral lower extremity edema) Similar Symptoms Previously?: Yes Recently seen or treated by another doctor?: No Review of Systems - Adult - REVIEW OF SYSTEMS - ADULT Constitutional: denies: chills, fever Eyes: reports: no symptoms reported Ears, Nose, Mouth & Throat: reports: no symptoms reported Cardiovascular: reports: edema. denies: chest pain Respiratory: reports: cough, wheezing. denies: shortness of breath Gastrointestinal: reports: no symptoms reported Genitourinary: reports: no symptoms reported Musculoskeletal: reports: no symptoms reported Integumentary: reports: no symptoms reported Neurological: reports: no symptoms reported Psychiatric: reports: no symptoms reported Endocrine: reports: no symptoms reported Hematologic/Lymphatic: reports: no symptoms reported Allergic/Immunologic: reports: no symptoms reported Past History - Adult - PAST MEDICAL HISTORY-ADULT Review of Records: reports: Old Records Reviewed, Nursing Assessment Review, Medications Reviewed, Social history reviewed & non-contributory. Cardiovascular: reports: CHF, HTN Gastrointestinal: reports: other (hiatal hernia) Neurological: reports: denies history Endocrine/Immune: reports: denies history - IMMUNIZATION STATUS Childhood Immunizations: See Nurse Assessment Flu Vaccine: See Nurse Assessment - FAMILY HISTORY Family History: reviewed, not pertinent Physical Exam-General - PHYSICAL EXAM-ADULT Initial Vital Signs Reviewed: Yes - CONSTITUTIONAL General Appearance: alert, no apparent distress - EYES Eyes: PERRL/EOMI - HEAD, EARS, NOSE, MOUTH & THROAT HENMT: normocephalic/atraumatic - NECK Neck: full range of motion, supple - RESPIRATORY Respiratory: no respiratory distress, no accessory muscle use, decreased breath sounds, crackles, wheezing, increased rate - CARDIOVASCULAR Cardiovascular: normal peripheral pulses, regular rate, rhythm, no murmur - GASTROINTESTINAL (ABDOMEN) Abdominal Exam: non tender, soft - MUSCULOSKELETAL Extremity: normal range of motion, non-tender, other (dressing on bilateral calves with notable weeping and significant edema to level of groin) - SKIN Integumentary: normal color, normal turgor, diaphoresis - NEUROLOGIC Neurologic: grossly normal - PSYCHIATRIC Psych/Mental Status: normal mood/affect, normal thought content, normal thought process, oriented x 3 Progress - PLAN OF CARE/RESULTS Progress/Plan/Lab Results: Vital Signs - 8 hr 04/09/19 13:03 Temperature 97.7 F Pulse Rate 76 Respiratory Rate 18 Blood Pressure 142/79 O2 Sat by Pulse Oximetry 95 Orders Category Date Time Status CHEST-PORTABLE [RAD] Stat Exams 04/09/19 13:41 Ordered CBC WITH ELECTRONIC DIFF [HEME] Stat Lab 04/09/19 13:40 Uncollected COMPREHENSIVE METABOLIC PANEL [CHEM] Stat Lab 04/09/19 13:41 Uncollected PRO B-NATRIURETIC PEPTIDE Stat Lab 04/09/19 13:41 Uncollected PROTIME WITH INR [COAG] Stat Lab 04/09/19 13:43 Uncollected PTT [COAG] Stat Lab 04/09/19 13:43 Uncollected TROPONIN T Stat Lab 04/09/19 13:41 Uncollected URINALYSIS W/POSS RFLX CULT [URINALYSIS] Stat Lab 04/09/19 13:41 Uncollected Furosemide [Lasix] Med 04/09/19 13:41 Discontinued 60 mg IV NOW ONE Patient with BNP to 11k. Troponin negative. CXR showing bilateral pleural effusions. Weeping and pitting edema up to thighs and hips. Can hear crackles from standing next to her. Given Lasix 60mg IV. Hgb to 8.5 but appears chronically low. Cr also 1.5 but also appears to have CKD. Spoke to Dr Fisher, front desk admin for hospitalist who accepted patient for admission. Further orders to be placed by their team. Result Diagrams: 04/09/19 14:59 04/09/19 14:59 - XRAY 1 XRAY Study: Chest Impression: See EMR Report (EXAM: CHEST-PORTABLE INDICATION: CHF, edema TECHNIQUE: One view COMPARISON: 01/30/2019 FINDINGS: There is evidence of prior granulomatous disease, stable. There are bilateral [id number] sized pleural effusions, larger on the right with adjacent atelectasis and/or infiltrate. There is evidence of pulmonary venous congestion and mild edema. There is stable cardiomegaly. IMPRESSION: Pulmonary edema and bilateral effusions as described. Electronically signed by Gian Shah 04/09/2019 2:25 PM 04/09/19 1425 Interpreting Physician: Gian Shah MD Dictated Date/Time: 04/09/19 1423 cc: Morenita Perdomo MD; Stacie Zuleta MD) - CONSULTS/PCP/HOSPITALIST Notification #1 *Consult/PCP/Hospitalist*: Dr Fisher Time Discussed: 17:25 Consult Disposition: Admit Departure - Departure Date of Disposition Decision: 04/09/19 Time of Disposition Decision: 17:23 DIAGNOSIS: Congestive heart failure, Pleural effusion, bilateral, Chronic anemia, Chronic kidney disease Disposition: ADMITTED INPATIENT 09 Certified Medical Emergency: Emergent Condition: Stable Referrals and Follow-Ups: Stacie Zuleta MD [Primary Care Provider] - - Critical Care Note This patient required my direct & personal management of CC.: No Attestation - Physician/ DOMENICO Attestation Patient care was provided by Advanced Practice Provider:: No The physician spent face to face time with patient:: Yes Advanced Practice Provider documentation review:: Supervising physician onsite and consulted in the evaluation and care of this patient. The physician did have a face to face encounter with the patient. This chart was documented by the indicated scribe, (Ida Brody Scribe) and accurately reflects the services I performed and decisions made by me, Morenita Perdomo MD, as attested by the provider's signature.
--- NOTE | 2019-04-09 14:27 | Diag Imaging Result Doc PS360 ---
EXAM: CHEST-PORTABLE INDICATION: CHF, edema TECHNIQUE: One view COMPARISON: 01/30/2019 FINDINGS: There is evidence of prior granulomatous disease, stable. There are bilateral [id number] sized pleural effusions, larger on the right with adjacent atelectasis and/or infiltrate. There is evidence of pulmonary venous congestion and mild edema. There is stable cardiomegaly. IMPRESSION: Pulmonary edema and bilateral effusions as described. Electronically signed by Gian Shah 04/09/2019 2:25 PM
[2019-04-09 15:43] LABS: HEMATOCRIT 29.5 % (37.0-47.0); HEMOGLOBIN 8.3 g/dL (12.0-16.0); MCH 23.1 PG (27-31); MCHC 28.1 g/dL (33-37); MCV 81.9 FL (81-99); MPV 10.5 FL (7.4-10.4); PLT 131 X1000 (130-400); RDW 18.8 % (11.5-14.5); WBC 8.08 X1000 (4.8-10.8)
[2019-04-09 15:44] LABS: BASO# 0.01 X1000 (0.0-0.2); BASO% 0.1 % (0.0-0.8); IMM GRAN# 0.04 X1000 (0.0-0.04); IMM GRAN% 0.5 % (0.0-0.5); LYMPH# 0.59 X1000 (1.2-3.4); LYMPH% 7.3 % (20.5-51.1); MONO# 0.54 X1000 (0.11-0.59); MONO% 6.7 % (1.7-9.3); NEUT% 85.4 % (42.2-75.2)
[2019-04-09 15:51] LABS: URINE SOURCE CATH
[2019-04-09 15:53] LABS: ALB/GLOB RATIO 1.3; ALBUMIN 3.6 g/dL (3.5-5.0); CALCIUM 8.3 mg/dL (8.8-10.2); CREATININE 1.5 mg/dL (0.5-0.9); POTASSIUM 4.5 mmol/L (3.5-5.1); TOTAL BILIRUBIN 0.48 mg/dL (0.20-1.00); TOTAL PROTEIN 6.4 g/dL (6.3-8.3)
[2019-04-09 16:43] LABS: BILIRUBIN URINE NEGATIVE (NEGATIVE); BLOOD URINE NEGATIVE (NEGATIVE); COLOR YELLOW; GLUCOSE URINE NEGATIVE (NEGATIVE); KETONE URINE NEGATIVE (NEGATIVE); LEUKOCYTES URINE NEGATIVE (NEGATIVE); NITRITE URINE NEGATIVE (NEGATIVE); PH URINE 7.5; PROTEIN URINE NEGATIVE (NEGATIVE); SP GRAVITY URINE 1.011; TURBIDITY URINE CLEAR (CLEAR); UROBILINOGEN URINE 4 mg/dL (NORMAL)
[2019-04-09 16:45] LABS: UR EPITHELIAL CELLS <10 /HPF (<10); URINE BACTERIA NEGATIVE /HPF; URINE RBC <10 /HPF (<10); URINE WBC <10 /HPF (<10)
[2019-04-09 18:12] LABS: INR 1.16; PROTIME 14.9 Seconds (11.0-16.0)
[2019-04-09 18:13] LABS: PTT 33.7 Seconds (22.3-41.8)
--- NOTE | 2019-04-09 18:15 | HISTORY AND PHYSICAL ---
PRIMARY CARE PHYSICIAN: Dr. Stacie Zuleta. PRIMARY FILM CUTTER: Dr. Dash Aguilar. HISTORY OF PRESENT ILLNESS: This is a 89-year-old female with a history of congestive heart failure and a bioprosthetic aortic valve, who presented to the emergency department complaining of bilateral lower extremity edema and coughing and wheezing. Apparently this patient has been having those symptoms for the last week. She has been experiencing cough, congestion, and weeping in both lower extremities. Apparently since her last admission she was placed on torsemide because she has been for years on furosemide but apparently it was no longer working for her. She was prescribed torsemide 5 mg p.o. b.i.d. and they increased to 10 mg p.o. b.i.d., but apparently that medication was not working for her at all. Today upon ER examination, she looks to have pulmonary edema with swelling in both lower extremities so she is going to be admitted for further evaluation and treatment for congestive heart failure. PAST MEDICAL HISTORY: 1. Congestive heart failure. 2. Esophageal achalasia. 3. Sick sinus syndrome, status post pacemaker placement. 4. History of atrial fibrillation. 5. 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 6. Gastroesophageal reflux disease. 7. Hypertension. 8. Chronic kidney disease stage 3. 9. Hypothyroidism. 10. History of cervical cancer. PAST SURGICAL HISTORY: 1. Appendectomy. 2. Cholecystectomy. 3. Hysterectomy. 4. Tonsillectomy. 5. Pacemaker placement. 6. Aortic valve replacement. SOCIAL HISTORY: Patient lives in an assisted living facility. The patient denies any tobacco, alcohol, or illicit drug use. ALLERGIES: Patient is allergic to penicillin. REVIEW OF SYSTEMS: Eleven systems were reviewed and all symptoms are related to H P. PHYSICAL EXAMINATION: VITAL SIGNS: Temperature 97.7 degrees, heart rate 76, respiratory rate 18, blood pressure 142/79, O2 saturation 95% on room air. GENERAL EXAMINATION: This is a chronically ill-appearing, 89-year-old female lying in bed, in no acute distress. HEENT: Head is normocephalic, atraumatic. Pupils equal, round, reactive to light and accommodation. Anicteric sclerae. Pale conjunctivae. NECK: JVD noted at 45 degrees. No carotid bruits. No lymphadenopathy. CARDIOVASCULAR: S1, S2 heard. He has a systolic murmur in the aortic area. RESPIRATORY: Crackles all over both pulmonary long, mostly noted in both bases. Patient is not using any accessory muscles or having work of breathing. ABDOMEN: Soft. There is abdominal wall edema noted. Bowel sounds present. No organomegaly. EXTREMITIES: Marked edema in both lower extremities up to both thighs with weeping lesions noted on both legs. NEUROLOGIC: Patient is alert and oriented x3. Moves 4 extremities. LABORATORY DATA: White cell count 8.08, hemoglobin 8.3, hematocrit 29.5, platelets 131,000. BMP reveals creatinine 1.5. Troponin 0.026 with proBNP of 110.79. X-ray done in the ER at admission showed pulmonary edema, bilateral pleural effusion. ASSESSMENT AND PLAN: 1. Congestive heart failure exacerbation. The patient apparently is not responding to Lasix oral anymore and not to torsemide as well. At this point, considering her massive anasarca with elevated proBNP, we will start a Lasix drip. We will repeat an echocardiogram and we will consult Cardiology. We have checked troponins and that is negative. The patient is not complaining of any chest pain. We will continue to monitor this patient closely. 2. Anemia of chronic disease. Hemoglobin is 8.3, it is stable. We will continue to monitor. 3. Chronic kidney disease stage 3. We will monitor this patient closely with BMP daily because she is going to be on a furosemide drip. 4. Esophageal achalasia. We will continue with Protonix. 5. Disposition. The patient is going to be admitted to the hospital, to the PVC unit. cc: Martínez Ahmadi MD MTDAmber
--- NOTE | 2019-04-09 19:29 | Diag Imaging Result Doc PS360 ---
CT THORAX W/O CONTRAST - 04/09/2019 INDICATION: pulmonary edema, r/o pna COMPARISON: Chest x-ray earlier today FINDINGS: There is a left-sided pacemaker. There is cardiomegaly. There are moderate bilateral pleural effusions. There is extensive bibasilar atelectasis. There is some mild central interstitial pulmonary edema. No definite consolidations. There is extremely severe body wall edema diffusely. There are cholecystectomy clips. Upper abdominal organs are otherwise unremarkable. IMPRESSION: Congestive heart failure. Severe body wall edema. This exam was performed using automated exposure control, adjustment of mA or kV according to patient size, and/or use of iterative reconstruction technique Electronically signed by Rommel Childress 04/09/2019 7:27 PM
[2019-04-09] MEDS ORDERED: DESYREL PO PRN (19:48)
[2019-04-09] MEDS ORDERED: LASIX 100 MG in NS 90 ML IV SCH (19:48)
[2019-04-09] MEDS: HEPARIN SUBQ SCH (20:11)
[2019-04-09] MEDS: PROTONIX PO SCH (21:20)
[2019-04-10] MEDS: LASIX IV SCH ×2 (03:39→14:52)
[2019-04-10 06:25] LABS: HEMATOCRIT 28.3 % (37.0-47.0); HEMOGLOBIN 7.9 g/dL (12.0-16.0); MCH 22.8 PG (27-31); MCHC 27.9 g/dL (33-37); MCV 81.6 FL (81-99); RBC 3.47 XMIL (4.2-5.4); RDW 18.9 % (11.5-14.5); WBC 7.76 X1000 (4.8-10.8)
[2019-04-10 06:43] LABS: CALCIUM 8.4 mg/dL (8.8-10.2); CREATININE 1.4 mg/dL (0.5-0.9); POTASSIUM 3.9 mmol/L (3.5-5.1)
[2019-04-10] MEDS: HEPARIN SUBQ SCH ×2 (08:59→20:45)
[2019-04-10] MEDS: ASPIRIN EC PO SCH (08:59)
[2019-04-10] MEDS: SYNTHROID PO SCH (09:00)
[2019-04-10] MEDS: PROTONIX PO SCH ×2 (09:00→20:44)
[2019-04-10] MEDS: MIRALAX PO SCH (09:00)
[2019-04-10] MEDS ORDERED: PRILOSEC PO SCH (09:00)
[2019-04-10] MEDS: TOPROL XL PO SCH (09:04)
--- NOTE | 2019-04-10 09:53 | Diag Imaging Result Doc PS360 ---
CHEST-2 VIEWS - 04/10/2019 INDICATION: pulmonary edema COMPARISON: 04/09/2019 FINDINGS: Stable cardiomegaly and pulmonary vascular congestion. Stable small to moderate bilateral pleural effusions. Stable central pulmonary edema bilaterally. IMPRESSION: No change from prior. Electronically signed by Rommel Childress 04/10/2019 9:51 AM
[2019-04-10] MEDS: TYLENOL PO PRN ×3 (10:32→20:45)
[2019-04-10] MEDS: ZAROXOLYN PO SCH (13:23)
--- NOTE | 2019-04-10 13:57 | CARDIOLOGY CONSULTATION ---
DATE: 04/10/2019 REASON FOR CONSULTATION: Cardiology was consulted for congestive heart failure anasarca. HISTORY OF PRESENT ILLNESS: Ms. Radha Butt is an 89-year-old, lady, date of 1930 who has history of bioprosthetic aortic valve with severe bioprosthetic aortic valve stenosis heart failure. She is level 2 DNR and chose no further intervention as far as the aortic stenosis concerned. She has an extensive history as below. She comes with complaints of increasing edema, cough and wheezing associated with orthopnea. She was taking Lasix at home. However symptoms of shortness of breath worsened. She was admitted to the hospital and started on IV Lasix. She says she is still short of breath and denies any chest pain. She also has had swelling in the lower extremities. The patient was admitted on 01/22/2019 and discharged on 02/02/2019. At that time, she was admitted with acute GI bleeding secondary to Jennifer-Rollins tear. It was decided to manage her medically. From a GI standpoint, there was esophageal achalasia versus stricture requiring dilatation with hiatal hernia as well. She has chronic kidney disease. She also had a surgical consultation for the GI bleed at that time. Currently, she does not complain of having had any bleeding issues. No hematemesis or melena. REVIEW OF SYSTEMS: A 14-point review of systems was done:Gastrointestinal System: There is no nausea or vomiting. Central nervous system: No focal weakness to suggest a CVA, TIA. Genitourinary System: There is no dysuria or hematuria. Respiratory system: No history of fevers or chills. PAST MEDICAL HISTORY: 1. Bioprosthetic aortic valve replacement in the past with severe restenosis of the aortic valve. With aortic valve area of 1.4 cm2. The patient does not want to undergo further treatment for the same. 2. Sick sinus syndrome status post permanent pacemaker implantation. 3. Hypertension. 4. Chronic kidney disease. 5. Recent diagnosis of GI bleed with Jennifer-Rollins tear. 6. History of cervical cancer. 7. Hypothyroidism. 8. Atrial fibrillation. 9. Peripheral neuropathy. 10. History of fall with trochanteric fracture in the past. HOME MEDICATIONS: Albuterol inhalers. Aspirin 81 mg a day. Diazepam 2 mg, docusate 100 mg p.o. b.i.d., Lasix 40 mg a day. Levothyroxine 75. Metoprolol succinate 25 mg daily. Protonix 40 b.i.d., prednisone 5, trazodone 50. Lasix. Simvastatin 20. ALLERGIES: Penicillin and propoxyphene. PHYSICAL EXAMINATION: Vital Signs: Blood pressure was 116/65, jugular venous pressure was elevated. Cardiovascular: There was ejection systolic murmur. Respiratory: There was bibasilar inspiratory crepitations. Abdomen: Soft, nontender. Bowel sounds were heard. Central nervous system: Alert, moving all 4 extremities. Extremities: Examination of her extremities revealed bilateral pitting pedal edema to her thighs. LABORATORY EXAMINATION: Sodium 141, potassium 3.9, BUN 37, creatinine [place] [address]. Troponin was negative. Hemoglobin 7.9, hematocrit 23, platelet count of 110. Chest x-ray: Vascular congestion. CT of her chest was done which revealed congestive heart failure, edema on the body wall in addition to pleural effusion. ASSESSMENT AND PLAN: Ms. Radha Butt is an 89-year-old lady with: 1. History of paroxysmal atrial fibrillation, permanent pacemaker implantation, hypertension, chronic kidney disease, peripheral neuropathy. 2. Aortic valve replacement with severe bioprosthetic aortic valve stenosis. History of Jennifer- Rollins tear, gastrointestinal bleed. Recently admitted and discharged in January 2019. 3. She is admitted with heart failure anasarca. RECOMMENDATIONS: 1. She has been started on Lasix 40 mg IV twice daily. I will add metolazone 2.5 mg daily. She has chronic congestive heart failure and given her severe aortic stenosis of the bioprosthetic aortic valve this is going to be a chronic feature. The patient does not want to undergo any further evaluation for the aortic valve. Patient is level 2 DNR. 2. Chronic kidney disease. We will watch her BMP. 3. Recommend continuing her beta-blockers and simvastatin as far as her cardiac medications are concerned. 4. History of atrial fibrillation, not anticoagulated and recent gastrointestinal bleed. She is on aspirin alone. We will continue the same. 5. We will watch her hemoglobin and hematocrit given her heart failure and severe aortic stenosis, should her hemoglobin and hematocrit drop, she may benefit from a unit of packed red blood cells. Thank you for the consult. We will follow hospital course. cc: Clay Pina MD
[2019-04-10] MEDS ORDERED: DULCOLAX PR PRN (16:33)
[2019-04-10] MEDS ORDERED: ULTRAM PO PRN (16:36)
[2019-04-10] MEDS: ALBUTEROL NEB INH SCH (20:02)
--- NOTE | 2019-04-10 20:42 | PROGRESS NOTE ---
DATE: 04/10/2019 SUBJECTIVE: The patient has no major complaints. She seems to be doing okay. Breathing a bit better. OBJECTIVE: Cardiovascular: Regular rate and rhythm. Pulmonary: Bilateral breath sounds. Clear to auscultation. Gastrointestinal: Abdomen soft, nontender, nondistended. Bowel sounds are positive. LABORATORY DATA: White count 7, hemoglobin and hematocrit 7.9 and 28, platelets of 110,000. Creatinine of 1.4. PROBLEM LIST: Acute congestive heart failure exacerbation. We will continue diuresis and follow. She has anasarca, but according to the daughter, she is not eating. Everything is kind of coming back up. Her albumin on admission was normal at 3.6, which I am surprised about, but I am not sure a lot of this is third-spacing and anasarca may not be due to low protein. PLAN: We will continue diuresis. Cardiology is following. We will continue to follow closely and monitor. Anticipate discharge in hopefully the next 1 to 2 days. cc: Alex Hunt MD
[2019-04-10] MEDS: VALIUM PO SCH (20:44)
[2019-04-10] MEDS: ZOCOR PO SCH (20:45)
[2019-04-10] MEDS ORDERED: ZOCOR PO SCH (21:00)
[2019-04-10] MEDS ORDERED: VALIUM PO SCH (21:00)
[2019-04-11] MEDS: LASIX IV SCH ×3 (02:07→18:00)
[2019-04-11 06:13] LABS: HEMATOCRIT 25.6 % (37.0-47.0); HEMOGLOBIN 7.4 g/dL (12.0-16.0); MCH 24.8 PG (27-31); MCHC 28.9 g/dL (33-37); MCV 85.9 FL (81-99); RBC 2.98 XMIL (4.2-5.4); RDW 20.7 % (11.5-14.5); WBC 6.15 X1000 (4.8-10.8)
[2019-04-11 06:29] LABS: CALCIUM 8.5 mg/dL (8.8-10.2); CREATININE 1.5 mg/dL (0.5-0.9); POTASSIUM 3.9 mmol/L (3.5-5.1)
[2019-04-11] MEDS: SYNTHROID PO SCH (08:38)
[2019-04-11] MEDS: TOPROL XL PO SCH (08:38)
[2019-04-11] MEDS: PROTONIX PO SCH ×2 (08:38→22:18)
[2019-04-11] MEDS: MIRALAX PO SCH (08:38)
[2019-04-11] MEDS: ZAROXOLYN PO SCH (08:38)
[2019-04-11] MEDS: VITAMIN D PO SCH (08:38)
[2019-04-11] MEDS: ASPIRIN EC PO SCH (08:38)
[2019-04-11] MEDS: HEPARIN SUBQ SCH (08:39)
[2019-04-11] MEDS ORDERED: ASPIRIN PO SCH (09:00)
--- NOTE | 2019-04-11 09:36 | ECHO REPORT ---
ORDER DATE: 04/09/2019 MEASUREMENTS: 1. Left ventricular end-diastolic diameter 4. 2. Septal thickness 1. 3. Posterior wall thickness 1. 4. Left ventricular internal diameter systole 2.6. 5. Left atrium 5.3. SUMMARY: 1. Technically difficult study due to limited acoustic window quality. 2. Aortic valve has been replaced with bioprosthesis, which is not well imaged. The peak gradient across the aortic valve is 73 mmHg with a mean gradient of 51 mmHg. The calculated aortic valve area by Doppler is 0.4 cm sq, suggesting severe functional aortic stenosis. There is mild aortic regurgitation. Heavy mitral annular calcification is demonstrated. There is mild mitral regurgitation. Tricuspid valve is without obvious structural abnormality with moderate to severe tricuspid regurgitation. Estimated systolic PA pressure by Doppler is 60 to 65 mmHg suggesting moderate pulmonary hypertension. The aortic root is grossly normal in size. 3. Normal left ventricular chamber size with mild concentric left hypertrophy is suggested on 2- dimensional images. Estimated left ejection fraction appears to be at least 65%. No obvious wall motion abnormality can be appreciated. Moderate biatrial enlargement is demonstrated. Right ventricle is mildly enlarged. Pacemaker lead is evident in the right ventricle. 4. No pericardial effusion. 5. Appearance of inferior cava suggests normal central venous pressure. cc: MD Martínez Flood MD
[2019-04-11] MEDS: ALBUTEROL NEB INH SCH ×2 (10:38→19:18)
[2019-04-11] MEDS ORDERED: TYLENOL PO ONE (10:43)
[2019-04-11] MEDS ORDERED: NS 500 ML IV ONE (10:43)
[2019-04-11] MEDS: ZOFRAN IV PRN (13:32)
[2019-04-11 14:30] LABS: UR PROTEIN 7.5 mg/dL
--- NOTE | 2019-04-11 16:01 | PROGRESS NOTE ---
DATE: 04/11/2019 SUBJECTIVE: She looks better today. She does not look as winded. OBJECTIVE: Vital signs: Blood pressure 112/77, heart rate 70, respiratory rate 20, temperature 97.9 degrees. She is 98% on 2 L. Cardiovascular: Regular rate and rhythm. Pulmonary: Bilateral breath sounds. Clear to auscultation. GI: Soft, nontender, nondistended. Bowel sounds are positive. LABORATORY DATA: White count 6, hemoglobin and hematocrit have dropped to 7 and 25. Each day it is progressively lower. Platelets are 100,000. Creatinine is at 1.5. Her platelets were normal when she came in though. PROBLEM LIST: 1. Acute congestive heart failure exacerbation. She seems to be doing okay. We will continue diuretics and follow. 2. Symptomatic anemia. Per Cardiology recommendations, I am going to go ahead and give her a unit of blood and follow. 3. Disposition. Pending her clinical status. Possibly home in the next 1 to 2 days. 4. Hypoalbuminemia. We will continue to monitor. cc: Alex Hunt MD
[2019-04-11] MEDS ORDERED: PROTONIX PO SCH (17:56)
[2019-04-11] MEDS ORDERED: REGLAN PO PRN (17:56)
[2019-04-11] MEDS ORDERED: MIRALAX PO PRN (17:56)
[2019-04-11] MEDS ORDERED: DESYREL PO PRN (17:56)
[2019-04-11] MEDS ORDERED: SIMVASTATIN 20 MG PO SCH (21:00)
[2019-04-11] MEDS: COLACE PO SCH (22:18)
[2019-04-11] MEDS: ZOCOR PO SCH (22:18)
[2019-04-11] MEDS: VALIUM PO SCH (22:18)
[2019-04-12] MEDS: LASIX IV SCH ×2 (06:55→21:37)
[2019-04-12] MEDS: ALBUTEROL NEB INH SCH ×2 (08:06→20:16)
[2019-04-12] MEDS ORDERED: TOPROL XL PO SCH (09:00)
[2019-04-12] MEDS ORDERED: SYNTHROID PO SCH (09:00)
[2019-04-12 09:01] LABS: HEMATOCRIT 31.4 % (37.0-47.0); HEMOGLOBIN 10.1 g/dL (12.0-16.0); MCH 27.6 PG (27-31); MCHC 32.2 g/dL (33-37); MCV 85.8 FL (81-99); MPV 9.7 FL (7.4-10.4); RBC 3.66 XMIL (4.2-5.4); RDW 20.4 % (11.5-14.5); WBC 11.46 X1000 (4.8-10.8)
[2019-04-12 09:23] LABS: ALB/GLOB RATIO 1.2; ALBUMIN 3.5 g/dL (3.5-5.0); DIRECT BILIRUBIN 0.4 mg/dL (0.00-0.20); TOTAL BILIRUBIN 0.99 mg/dL (0.20-1.00); TOTAL PROTEIN 6.5 g/dL (6.3-8.3)
[2019-04-12 09:25] LABS: CALCIUM 8.8 mg/dL (8.8-10.2); CREATININE 1.7 mg/dL (0.5-0.9); POTASSIUM 3.8 mmol/L (3.5-5.1)
[2019-04-12] MEDS: ZOFRAN IV PRN (09:53)
[2019-04-12] MEDS: SYNTHROID PO SCH (09:55)
[2019-04-12] MEDS: VITAMIN D PO SCH (09:55)
[2019-04-12] MEDS: COLACE PO SCH ×2 (09:55→21:37)
[2019-04-12] MEDS: ASPIRIN EC PO SCH (09:55)
[2019-04-12] MEDS: ZAROXOLYN PO SCH (09:55)
[2019-04-12] MEDS: PROTONIX PO SCH ×2 (09:57→21:37)
[2019-04-12] MEDS: PREDNISONE PO SCH (09:57)
[2019-04-12] MEDS: TOPROL XL PO SCH (09:57)
[2019-04-12] MEDS: MIRALAX PO SCH (09:58)
[2019-04-12] MEDS ORDERED: LASIX IV ONE (13:50)
--- NOTE | 2019-04-12 14:14 | Diag Imaging Result Doc PS360 ---
CHEST-PORTABLE - 04/12/2019 INDICATION: dyspnea, chf COMPARISON: 04/10/2019 FINDINGS: Stable pacemaker and surgical changes to the heart. Stable severe cardiomegaly and pulmonary vascular congestion. Stable moderate bibasilar pleural effusions and/or atelectasis. There has been some improvement in the central pulmonary edema. IMPRESSION: Mild improvement in central pulmonary edema. Electronically signed by Rommel Childress 04/12/2019 2:12 PM
--- NOTE | 2019-04-12 17:16 | PROGRESS NOTE ---
DATE: 04/12/2019 SUBJECTIVE: Patient has no major complaints. OBJECTIVE: Vital Signs: Blood pressure is 114/61, heart rate of 56, respiratory rate is 16, temperature 97.7 degrees, 98% on 2 L. Cardiovascular: Regular rate and rhythm. Pulmonary: Bilateral breath sounds clear to auscultation. Gastrointestinal: Abdomen soft, nontender, nondistended. Bowel sounds are positive. LABORATORY DATA: Her creatinine is 1.7. Her hemoglobin and hematocrit has come up to 10 and 31. She had a little bit of white count 11.4. Chest x-ray showed improving central pulmonary edema. PROBLEM LIST: 1. Acute congestive heart failure exacerbation, which is presumably diastolic although she has aortic stenosis based on her echocardiogram. We will continue treatments. Cardiology is following. 2. Symptomatic anemia. We have given her a unit of blood. She has a back up. DISPOSITION: Possibly home in a couple days at the discretion of Cardiology. She has significant aortic stenosis, but she is not a candidate for further treatment. She has a bioprosthetic valve. I guess that would most likely preclude her from TAVR procedure, so we will follow. We need to start getting her up and out of bed because I do not think she has been ambulating very much. cc: Alex Hunt MD
[2019-04-12] MEDS: VALIUM PO SCH (21:36)
[2019-04-12] MEDS: ZOCOR PO SCH (21:37)
[2019-04-13 08:06] LABS: CALCIUM 8.9 mg/dL (8.8-10.2); CREATININE 1.6 mg/dL (0.5-0.9); MAGNESIUM 2.2 mg/dL (1.5-2.7); POTASSIUM 3.3 mmol/L (3.5-5.1)
[2019-04-13] MEDS: ALBUTEROL NEB INH SCH ×2 (08:18→19:56)
[2019-04-13] MEDS: ZAROXOLYN PO SCH (09:43)
[2019-04-13] MEDS: MIRALAX PO SCH (09:46)
[2019-04-13] MEDS: VITAMIN D PO SCH (09:46)
[2019-04-13] MEDS: COLACE PO SCH ×2 (09:46→22:16)
[2019-04-13] MEDS: TOPROL XL PO SCH ×2 (09:46→11:39)
[2019-04-13] MEDS: PREDNISONE PO SCH (09:46)
[2019-04-13] MEDS: SYNTHROID PO SCH (09:46)
[2019-04-13] MEDS: PROTONIX PO SCH ×2 (09:46→22:16)
[2019-04-13] MEDS: ASPIRIN EC PO SCH (09:46)
[2019-04-13] MEDS: LASIX IV SCH (09:46)
[2019-04-13] MEDS: ZOFRAN IV PRN ×3 (09:47→22:22)
[2019-04-13] MEDS ORDERED: KLOR-CON PO ONE (11:28)
[2019-04-13] MEDS ORDERED: VALIUM PO PRN (16:44)
--- NOTE | 2019-04-13 19:44 | PROGRESS NOTE ---
DATE: 04/13/2019 SUBJECTIVE: The patient seems a little bit lethargic, but other than that is stable. OBJECTIVE: Vital signs: Blood pressure is 114/58, heart rate is 70, respiratory rate 20, temperature 98.2 degrees. Cardiovascular: Regular rate and rhythm. Pulmonary: Bilateral breath sounds, clear to auscultation. GI: Soft, nontender, nondistended. Bowel sounds are positive. LABORATORY DATA: Showed a potassium of 3.1 and a creatinine of 1.6 and a BUN of 41, which is pretty much where she has been hovering around. PROBLEM LIST: 1. Acute diastolic congestive heart failure exacerbation, with significant aortic stenosis that is not amenable to any surgical treatments. We are going to continue her current measures. I have decreased her Lasix to intravenous daily just in case we may be drying her out a bit. She is only on Valium at night and trazodone. I just feel like she is over-sedated. 2. Symptomatic anemia. Her hemoglobin and hematocrit had been doing okay. We did not check it today. We will check it tomorrow. DISPOSITION: Pending her clinical status. At this point, we are looking at rehab, most likely because she has gotten fairly debilitated, and her assisted living would not evaluate her today, and they do not evaluate patients over the weekend, and would not be able to evaluate her until Tuesday, which will affect the length of stay, but that is not something in our control, but should be noted from disposition standpoint. Regardless, she may need rehab in any case, but we will see how she progresses with physical therapy. cc: Alex Hunt MD
[2019-04-13] MEDS: ZOCOR PO SCH (22:16)
[2019-04-14] MEDS: ZOFRAN IV PRN (06:21)
[2019-04-14 07:32] LABS: HEMOGLOBIN 10.1 g/dL (12.0-16.0); MCH 27.6 PG (27-31); MCHC 31.6 g/dL (33-37); MCV 87.4 FL (81-99); MPV 10.9 FL (7.4-10.4); RBC 3.66 XMIL (4.2-5.4); RDW 21.6 % (11.5-14.5); WBC 14.31 X1000 (4.8-10.8)
[2019-04-14 07:54] LABS: CALCIUM 8.7 mg/dL (8.8-10.2); CREATININE 1.6 mg/dL (0.5-0.9); MAGNESIUM 2.1 mg/dL (1.5-2.7); POTASSIUM 3.2 mmol/L (3.5-5.1)
[2019-04-14] MEDS: ALBUTEROL NEB INH SCH ×2 (08:24→19:39)
[2019-04-14] MEDS ORDERED: LASIX IV SCH (09:00)
[2019-04-14] MEDS: ASPIRIN EC PO SCH (10:34)
[2019-04-14] MEDS: PREDNISONE PO SCH (10:34)
[2019-04-14] MEDS: PROTONIX PO SCH ×2 (10:34→22:25)
[2019-04-14] MEDS: COLACE PO SCH ×2 (10:34→22:25)
[2019-04-14] MEDS: SYNTHROID PO SCH (10:34)
[2019-04-14] MEDS: VITAMIN D PO SCH (10:35)
[2019-04-14] MEDS: TOPROL XL PO SCH (10:35)
[2019-04-14] MEDS: MIRALAX PO SCH (10:35)
[2019-04-14] MEDS ORDERED: KLOR-CON PO ONE (10:36)
[2019-04-14] MEDS: ZOCOR PO SCH (22:25)
--- NOTE | 2019-04-14 23:51 | PROGRESS NOTE ---
DATE: 04/14/2019 SUBJECTIVE: The patient has no major complaints. She looks more awake today. She is not quite as lethargic. OBJECTIVE: Blood pressure is 130/56, heart rate of 82, respiratory rate of 12, temperature 98.2 degrees, 97% on 2 L.Cardiovascular: Regular rate and rhythm. Pulmonary: Bilateral breath sounds, clear to auscultation. GI: Soft, nontender, nondistended. Bowel sounds are positive. LABORATORY DATA: White count is up to 14, hemoglobin and hematocrit 10 and 32, platelets of 96,000. Creatinine is 1.6. ASSESSMENT AND PLAN: 1. Acute diastolic heart failure with aortic stenosis. We will continue her regular medications and follow. 2. Symptomatic anemia. Her hemoglobin and hematocrit are actually pretty stable. 3. Hypokalemia. We will supplement and follow. 4. Stage 3B kidney dysfunction. We will continue to monitor. 5. Hypokalemia. We will supplement and follow. 6. Disposition: We are looking at most likely rehab, at least for the short-term. cc: Alex Hunt MD
[2019-04-15 07:43] LABS: CALCIUM 8.5 mg/dL (8.8-10.2); CREATININE 1.7 mg/dL (0.5-0.9); POTASSIUM 3.3 mmol/L (3.5-5.1)
[2019-04-15] MEDS: ALBUTEROL NEB INH SCH ×2 (07:56→19:39)
[2019-04-15 08:01] LABS: BASO# 0.02 X1000 (0.0-0.2); BASO% 0.1 % (0.0-0.8); EOS# 0.01 X1000 (0.0-0.7); EOS% 0.1 % (0.0-10.0); HEMATOCRIT 31.1 % (37.0-47.0); HEMOGLOBIN 8.9 g/dL (12.0-16.0); IMM GRAN# 0.04 X1000 (0.0-0.04); IMM GRAN% 0.2 % (0.0-0.5); LYMPH# 1.04 X1000 (1.2-3.4); LYMPH% 6.3 % (20.5-51.1); MCH 23.9 PG (27-31); MCHC 28.6 g/dL (33-37); MCV 83.4 FL (81-99); MONO# 1.75 X1000 (0.11-0.59); MONO% 10.7 % (1.7-9.3); MPV 10.6 FL (7.4-10.4); NEUT# 13.53 X1000 (1.4-6.5); NEUT% 82.6 % (42.2-75.2); PLT 87 X1000 (130-400); RBC 3.73 XMIL (4.2-5.4); RDW 19.6 % (11.5-14.5); WBC 16.39 X1000 (4.8-10.8)
[2019-04-15] MEDS ORDERED: LASIX PO SCH (09:00)
[2019-04-15] MEDS: VITAMIN D PO SCH (09:56)
[2019-04-15] MEDS: COLACE PO SCH ×2 (09:57→21:15)
[2019-04-15] MEDS: TOPROL XL PO SCH (09:57)
[2019-04-15] MEDS: MIRALAX PO SCH (09:57)
[2019-04-15] MEDS: ASPIRIN EC PO SCH (09:57)
[2019-04-15] MEDS: SYNTHROID PO SCH (09:58)
[2019-04-15] MEDS: PROTONIX PO SCH ×2 (09:58→21:15)
[2019-04-15] MEDS: PREDNISONE PO SCH (09:58)
--- NOTE | 2019-04-15 13:50 | Diag Imaging Result Doc PS360 ---
EXAM: CHEST-PORTABLE INDICATION: dyspnea TECHNIQUE: One view COMPARISON: 04/12/2019 FINDINGS: The right basilar effusion appears larger than the previous study and the left effusion appears smaller. The there has been worsening of pulmonary venous congestion and interstitial edema, especially on the right. No new consolidation is identified on the left. Cardiac silhouette is stable. IMPRESSION: Interval overall worsening as described. Electronically signed by Gian Shah 04/15/2019 1:48 PM
[2019-04-15] MEDS: ZOFRAN IV PRN (16:41)
--- NOTE | 2019-04-15 17:37 | PROGRESS NOTE ---
DATE: 04/15/2019 SUBJECTIVE: The patient has no major complaints. OBJECTIVE: Vital signs: Blood pressure is 113/72, heart rate of 69, respiratory rate of 16, temperature 98.4 degrees, 95% on 3 L. Cardiovascular: Regular rate and rhythm. Pulmonary: Bilateral breath sounds. Clear to auscultation. GI: Soft, nontender, nondistended. Bowel sounds are positive. LABORATORY DATA: White count is 16, hemoglobin and hematocrit 8.9 and 31, platelets of 87,000. Creatinine is 1.7. PROBLEM LIST: 1. Acute diastolic heart failure with aortic stenosis. We will continue. Based on her chest x- ray today it looks worse. I am going to put her back on IV Lasix and Cardiology will hopefully re-evaluate. They had been following her previously. 2. Symptomatic anemia. Hemoglobin and hematocrit appear to be overall stable. 3. Stage 4 kidney failure. We will continue to monitor while she is on that. 4. Gastrointestinal. She has some intermittent nausea, vomiting. I am not sure if this is related to constipation. She has had a bowel movement it looks like yesterday. We will continue to follow. 5. Progressive leukocytosis. She is on prednisone. I am not really sure what is causing her white count to jump up. She could be developing pneumonia. We will start cefepime and get an ID evaluation tomorrow. cc: Alex Hunt MD
--- NOTE | 2019-04-15 19:03 | Diag Imaging Result Doc PS360 ---
EXAM: CT THORAX W/O CONTRAST INDICATION: leukocytosis TECHNIQUE: This exam was performed using automated exposure control, adjustment of mA or kV according to patient size, and/or use of iterative reconstruction technique. COMPARISON: 04/09/2019 FINDINGS: There are bilateral moderate to large sized pleural effusions and there is significant atelectasis bilaterally. Very little of the right lower lobe is aerated. There is bronchial mucous plugging and there is superimposed patchy infiltrate involving the aerated portions of both lower lobes, the right middle lobe, and the anterior segment of the right upper. Some of this likely represents edema. However, I suspect superimposed pneumonia as well. The infiltrates and atelectasis have worsened since the previous study. The effusions are approximately stable with the left effusion perhaps being slightly smaller. There is stable cardiomegaly. Limited views of the upper abdomen are essentially unchanged. Body wall anasarca has improved slightly during the interval. IMPRESSION: 1.Bilateral moderate to large pleural effusions that are similar to the previous study. 2.Significant atelectasis with a basilar predominance and infiltrates involving the aerated portions of the lower lobes, right middle lobe, and anterior segment of the right upper lobe indicating pulmonary edema likely with superimposed pneumonia. Electronically signed by Gian Shah 04/15/2019 7:00 PM
[2019-04-15] MEDS: REGLAN IV SCH (19:45)
[2019-04-15] MEDS: MAXIPIME 1 GM in NS 50 ML IV SCH (20:02)
[2019-04-15] MEDS: ZOCOR PO SCH (21:15)
[2019-04-15] MEDS: LASIX IV SCH ×2 (22:10→23:11)
[2019-04-16] MEDS: REGLAN IV SCH (05:51)
[2019-04-16] MEDS: MAXIPIME 1 GM in NS 50 ML IV SCH ×2 (05:51→17:59)
[2019-04-16 07:31] LABS: BASO# 0.01 X1000 (0.0-0.2); BASO% 0.1 % (0.0-0.8); EOS# 0.06 X1000 (0.0-0.7); EOS% 0.5 % (0.0-10.0); HEMATOCRIT 28.5 % (37.0-47.0); HEMOGLOBIN 10.2 g/dL (12.0-16.0); IMM GRAN# 0.05 X1000 (0.0-0.04); IMM GRAN% 0.4 % (0.0-0.5); LYMPH# 1.07 X1000 (1.2-3.4); LYMPH% 8.2 % (20.5-51.1); MCH 31.3 PG (27-31); MCHC 35.8 g/dL (33-37); MCV 87.4 FL (81-99); MONO# 1.33 X1000 (0.11-0.59); MONO% 10.2 % (1.7-9.3); MPV 10.7 FL (7.4-10.4); NEUT# 10.49 X1000 (1.4-6.5); NEUT% 80.6 % (42.2-75.2); PLT 91 X1000 (130-400); RBC 3.26 XMIL (4.2-5.4); RDW 22.6 % (11.5-14.5); WBC 13.01 X1000 (4.8-10.8)
[2019-04-16 08:06] LABS: CREATININE 1.5 mg/dL (0.5-0.9); POTASSIUM 3.1 mmol/L (3.5-5.1)
--- NOTE | 2019-04-16 08:06 | INFECTIOUS DISEASE CONSULT REP ---
DATE: 04/16/2019 CONCLUSION: The patient has pneumonia superimposed on pulmonary venous congestion. RECOMMENDATIONS: I agree with the decision to treat the patient with cefepime, the dose of which has been modified because of the patient's renal failure. I have added Zyvox. Some of the side effects of the antibiotics, including rash, diarrhea, and hematotoxicity have been explained to the patient who agrees with treatment. DISCUSSION: The patient told me that she presented to the hospital because she was having trouble vomiting up her food. According to the dictation in the computer by the hospitalists, the patient presented to the emergency room complaining of lower extremity edema, coughing and wheezing. The patient's studies thus far show a CBC with a white count of 16,390, hemoglobin 8.9, platelet count 87,000. Creatinine is 1.7. GFR is 28. The liver function studies are normal. CT scan of the chest showed pleural effusions and bilateral infiltrates, and the radiologist thought this was due to the patient having superimposed pneumonia on pulmonary edema. PAST MEDICAL HISTORY/REVIEW OF SYSTEMS: Eyes and ears: Patient has decreased hearing and vision. Neck: No stiffness. Respiratory and cardiac: The patient has dyspnea, especially when she exerts herself. She also has leg edema bilaterally. GI: She tells me that since December, she has been vomiting up food after she eats. : No dysuria or flank pain. Neurologic: The patient has weakness in both legs. She can only walk a few steps when she uses a walker and cannot walk at all on her own without a walker. 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 She had a hysterectomy because of cancer of the uterus. PREVIOUS HOSPITALIZATIONS AND OPERATIONS: The patient has had 2 labor and deliveries, a hysterectomy, a tonsillectomy, an aortic valve replacement and placement of a left-sided pacemaker. MEDICAL DISEASES: Positive for uterine cancer, hypotension and congestive heart failure. INFECTIOUS DISEASE HISTORY: Positive for pneumonia and UTI in the past. FAMILY HISTORY: Positive for myocardial infarction, stroke, cancer and diabetes. [place]IAL HISTORY[place] She does not smoke cigarettes, drink alcoholic beverages or abuse drugs. The patient lives at [facility] where she has a room, but [facility] supplies food and does the washing for the patient and shopping and other things as well. The patient does not smoke, drink alcoholic beverages or abuse drugs. ALLERGIES: The patient told me she has an allergy to penicillin. It happened about 40 years ago, and she said she passed out. It should be noted however that the patient now is on cefepime and tolerating it well. She also told me that she has had Keflex in the past and that she was able to tolerate that well also. MEDICATIONS TAKEN AT HOME: Acetaminophen, albuterol inhaler, Dulcolax, diazepam, docusate, Lasix, Mucinex, Synthroid, Reglan, metoprolol, Zofran, Protonix, prednisone, simvastatin and Desyrel. PHYSICAL EXAMINATION: Vital Signs: Temperature is 98.4 degrees, pulse 76, respirations 14, blood pressure is 90/52. Patient weighs 125 pounds. General: This is an ill- appearing elderly female. She seems to be slightly dyspneic, even at rest. Head/eyes/ears/nose/throat: She has decreased hearing. I was unable to test how good her vision was. I did not notice any white coating of her tongue. Neck: No pain with movement. Lungs: Clear to auscultation. Cardiovascular: Heart rate is for the most part regular; occasionally there is a dropped beat. The patient has a systolic murmur. Thorax: Patient has a pacemaker present on the left side. The site is not erythematous or draining. Neurologic: The patient is awake. She has decreased hearing. She has weakness in both legs. There is no tremor. Integument: No rash noted. Extremities: The patient has bilateral leg edema with eschars. Thank you for the consult. cc: Obie Fox MD [facility]
[2019-04-16] MEDS: ZYVOX 600 MG/D5W 600 MG/300 ML IVPB IV SCH ×2 (09:09→18:17)
[2019-04-16] MEDS: COLACE PO SCH ×2 (09:10→21:23)
[2019-04-16] MEDS: ASPIRIN EC PO SCH (09:10)
[2019-04-16] MEDS: LASIX IV SCH ×2 (09:10→21:24)
[2019-04-16] MEDS: VITAMIN D PO SCH (09:11)
[2019-04-16] MEDS: MIRALAX PO SCH (09:11)
[2019-04-16] MEDS: PREDNISONE PO SCH (09:11)
[2019-04-16] MEDS: TOPROL XL PO SCH (09:11)
[2019-04-16] MEDS: PROTONIX PO SCH ×2 (09:11→21:23)
[2019-04-16] MEDS: SYNTHROID PO SCH (09:11)
[2019-04-16] MEDS: ALBUTEROL NEB INH SCH ×2 (09:16→19:44)
[2019-04-16] MEDS ORDERED: KLOR-CON PO ONE (10:58)
--- NOTE | 2019-04-16 11:11 | Diag Imaging Result Doc PS360 ---
EXAM: ABDOMEN FLAT/UPRIGHT HISTORY: swelling, n/v TECHNIQUE: Two views COMPARISON: 01/25/2019 FINDINGS: There are surgical clips in the mid right abdomen and pelvis. No bowel obstruction. No organomegaly. Moderate scoliosis with prominent degenerative changes. Prominent atherosclerosis. IMPRESSION: No acute abnormality. Electronically signed by Avery Mclain 04/16/2019 11:08 AM
[2019-04-16] MEDS: ZAROXOLYN PO SCH (11:52)
[2019-04-16] MEDS: ZOCOR PO SCH (21:23)
--- NOTE | 2019-04-16 21:54 | PROGRESS NOTE ---
DATE: 04/16/2019 SUBJECTIVE: Patient is lying in bed. She is complaining of shortness of breath and generalized weakness. Also, she has been complaining of diffuse pain bilaterally. She has a pneumonia superimposed on pulmonary venous congestion. She has been placed on broad-spectrum antibiotics. She has been getting also Lasix twice a day to try to reduce the pulmonary edema and so far we have a negative balance of 6.2 L documented. Her last bowel movement was yesterday, and she is tolerating p.o. a little bit. She has a chronic kidney disease, and this seems to be her baseline. She is hypokalemic, and we have been replacing her potassium. I discussed the case with Dr. Pina today in the morning. 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 We will try to keep her comfortable, and if she is a little bit stronger, she may go to a rehab center in a few days. I discussed the case with the patient, and with the patient at that moment, her son was at the bedside. Also I discussed the case with I believe her [id number], but it looks like her granddaughter is the one who has the power of service liaison representative. At any rate, this patient is awake and she is able to make her decisions, and we will discuss further treatment with all of them, especially the power of service liaison representative during this hospitalization. For now, I will continue with same management. We will try to send this patient to rehab center if she gets better. We will treat this patient's pneumonia and monitor. OBJECTIVE: Vital Signs: Temperature 98.4 degrees, pulse 112, respiratory rate 12, blood pressure 111/54, oxygen saturation 93 on 3 L of nasal cannula. HEENT: Head normocephalic, no trauma. PERRLA. Neck: Supple. No JVD. No masses. Central trachea. Chest: She has decreased breath sounds at the bases with bilateral crackles and rhonchi mostly from the midlung down, some crepitus also, mostly at the top of the lungs. Abdomen: Soft, nontender, nondistended. No hepatosplenomegaly. Extremities: No edema, no clubbing, no cyanosis. Neurological Examination: The patient is alert. She is oriented x3. No focal deficit right now but generalized weakness. LABORATORY DATA: WBC 13, hemoglobin 10.2, hematocrit 28.5, platelets 91,000. Sodium 138, potassium 3.1, chloride 88, bicarbonate 34, BUN 47, creatinine 1.5, glucose 87, calcium 9. ASSESSMENT AND PLAN: 1. Likely diastolic heart failure exacerbation in a patient with a bioprosthetic aortic valve replacement in the past with severe restenosis of the aortic valve. Cardiology Department is following this patient. We will continue with diuretics, beta-blockers. We have removed at least 6.2 L of fluid. She tolerated p.o. She is having bowel movements. We will continue with same management. Given these circumstances and stenosis, which probably cannot be repaired, this patient probably will meet criteria for hospice. This has been discussed with Cardiology department. We will continue treatment, and if this patient gets better, and stronger probably she will go to a rehab center. 2. Symptomatic anemia, stable status post one unit of packed red blood cells. 3. Chronic kidney disease. Continue to monitor. This is her baseline. 4. She has some intermittent nausea, and she seems to be spitting a lot, but she is still having problem with dysphagia. I will monitor for now. 5. Leukocytosis in a patient with chronic use of steroids. She does have pneumonia as well. 6. Pneumonia and pulmonary edema. Continue with diuretics. Infectious Disease Department on board and they have been taking care of the antibiotics now. 7. Pulmonary hypertension. Continue with diuresis. 8. History of esophageal achalasia. Aware. 9. Sick sinus syndrome status post pacemaker placement. 10. History of cervical cancer. Aware. 11. Hypothyroidism. Continue with Synthroid. 12. Dyslipidemia. Continue with simvastatin. I have discussed the case with the patient, and at that moment the son was at the bedside. After a long discussion for about 15 to 20 minutes, this patient has decided to go ahead and place herself DNR level 1. She is completely awake, alert, and she is oriented and following commands. Like I said advanced directives were discussed and took me around 15 to 20 minutes. Also I had a conversation for about 10 minutes with her [id number], which apparently has been taking care of her, but the power of service liaison representative is her granddaughter, which I believe is in [place]. At any rate, I will continue with the same management. We will treat the pneumonia. We already asked Physical Therapy to evaluate this patient. We would like to send this patient to a rehab center, but given her current presentation probably we will need to talk also with hospice because Cardiology Department and myself believe that probably she will need hospice care in the near future due to her severe aortic stenosis. cc: Bud Johnson MD
[2019-04-17] MEDS: MAXIPIME 1 GM in NS 50 ML IV SCH ×2 (05:00→17:04)
[2019-04-17 07:41] LABS: BASO# 0.01 X1000 (0.0-0.2); BASO% 0.1 % (0.0-0.8); EOS# 0.07 X1000 (0.0-0.7); EOS% 0.8 % (0.0-10.0); HEMATOCRIT 36.3 % (37.0-47.0); HEMOGLOBIN 10.6 g/dL (12.0-16.0); IMM GRAN# 0.04 X1000 (0.0-0.04); IMM GRAN% 0.4 % (0.0-0.5); LYMPH# 0.77 X1000 (1.2-3.4); LYMPH% 8.6 % (20.5-51.1); MCH 23.8 PG (27-31); MCHC 29.2 g/dL (33-37); MCV 81.4 FL (81-99); MONO# 0.97 X1000 (0.11-0.59); MONO% 10.8 % (1.7-9.3); MPV 10.8 FL (7.4-10.4); NEUT% 79.3 % (42.2-75.2); PLT 108 X1000 (130-400); RBC 4.46 XMIL (4.2-5.4); RDW 19.4 % (11.5-14.5); WBC 8.96 X1000 (4.8-10.8)
[2019-04-17] MEDS: ZYVOX 600 MG/D5W 600 MG/300 ML IVPB IV SCH ×2 (07:50→18:29)
[2019-04-17] MEDS: ALBUTEROL NEB INH SCH ×2 (08:14→19:45)
[2019-04-17 08:39] LABS: CALCIUM 8.9 mg/dL (8.8-10.2); CREATININE 1.3 mg/dL (0.5-0.9)
[2019-04-17] MEDS ORDERED: KLOR-CON PO SCH (09:00)
[2019-04-17] MEDS: ZAROXOLYN PO SCH (09:47)
[2019-04-17] MEDS: VITAMIN D PO SCH (09:49)
[2019-04-17] MEDS: ASPIRIN EC PO SCH (09:49)
[2019-04-17] MEDS: TOPROL XL PO SCH (09:49)
[2019-04-17] MEDS: SYNTHROID PO SCH (09:49)
[2019-04-17] MEDS: COLACE PO SCH ×2 (09:49→21:17)
[2019-04-17] MEDS: PREDNISONE PO SCH (09:49)
[2019-04-17] MEDS: LASIX IV SCH ×2 (09:49→21:17)
[2019-04-17] MEDS: PROTONIX PO SCH ×2 (09:49→21:18)
[2019-04-17] MEDS: MIRALAX PO SCH (09:53)
[2019-04-17] MEDS ORDERED: POTASSIUM CHLORIDE 20% LIQUID PO ONE (10:44)
--- NOTE | 2019-04-17 13:28 | PROGRESS NOTE ---
DATE: 04/17/2019 SUBJECTIVE: Patient reports some shortness of breath on nasal cannula oxygen. There has been no chest pain. OBJECTIVE: Vital Signs: Blood pressure 106/66, heart rate 68, oxygen saturation 98% on nasal cannula oxygen at 3 L/minute. Neck: Jugular venous distention cannot be appreciated. Chest: Auscultation of the chest reveals diminished breath sounds at the bases. Cardiac: Reveals a regular rate and rhythm with grade 2-3/6 systolic murmur at the right upper sternal border. No gallop could be appreciated. LABORATORY DATA: Includes a white blood cell count of 16.39, hematocrit 31.1, hemoglobin 8.9, platelet count 87, sodium 137, potassium 3.3, chloride 90, carbon dioxide 34, BUN 47, creatinine 1.7, glucose 106. IMPRESSION: 1. Congestive heart failure with bilateral pleural effusions. 2. Aortic valve disorder with bioprosthetic aortic valve replacement with significant stenosis. 3. Sinus node dysfunction. Patient is status post permanent pacemaker. 4. Hypertension. 5. Chronic kidney disease, stage 4. 6. Atrial fibrillation. RECOMMENDATIONS: 1. Continue current diuretic regimen with Lasix 40 mg IV q.12 hours. 2. Continue low-dose metoprolol as tolerated. cc: Emile Torres MD
--- NOTE | 2019-04-17 14:36 | INFECTIOUS DISEASE PROGRESS NO ---
DATE: 04/17/2019 PRESENT ILLNESS: The patient has pneumonia superimposed on pulmonary venous congestion. MEDICATIONS: The patient is receiving a combination of cefepime and Zyvox now for 2 days. PHYSICAL EXAMINATION: Vital Signs: Temperature is 97.5 degrees, pulse 74, respirations 15, blood pressure is 96/57. General: This is an ill-appearing elderly female. She is in no acute distress, however. Head/eyes/ears/nose/throat: Patient has decreased hearing and seemed to have decreased vision as well. The patient did not have any white coating on her tongue. Neck: No pain with movement of the neck. Lungs: Clear to auscultation. Cardiovascular: Heart rate is regular with a systolic murmur. Abdomen: Soft and nontender. Thorax: The patient has a pacemaker present on the light left side. The site is not swollen or red. Neurologic: The patient is awake. She has decreased hearing. She does not have any tremor. Extremities: The patient has legs with bilateral edema and there are some eschars present. LAB AND X-RAY: There is no new radiographic study. The CBC shows a white count of 8960, hemoglobin 10.6, and platelet count 108,000. Creatinine is 1.3. GFR is 39. ASSESSMENT AND PLAN: Patient has pneumonia superimposed on pulmonary venous congestion. I plan to continue cefepime and Zyvox. COMORBIDITIES: The patient is elderly. She has had uterine cancer and she has congestive heart failure. ASSESSMENT AND PLAN: The patient appears to have pneumonia superimposed on pulmonary venous congestion. I plan to continue her current antibiotics consisting of cefepime and Zyvox. COMORBIDITIES: The patient is elderly. She has had an aortic valve replacement and placement of a left-sided pacemaker. cc: Obie Fox MD
--- NOTE | 2019-04-17 16:27 | PROGRESS NOTE ---
DATE: 04/17/2019 SUBJECTIVE: This patient seems to be doing much better today compared with yesterday. She has been having a significant urine output. We have a negative balance of 9.6 L. I will repeat a new x-ray tomorrow to see how she does. OBJECTIVE: Vital Signs: Temperature 97.5 degrees, pulse 68, respiratory rate 19, blood pressure 106/66, oxygen saturation 98 on nasal cannula 3 L. HEENT: Head normocephalic, no trauma. PERRLA. Neck: Supple. No JVD. No masses. Central trachea. Chest: Decreased breath sounds mostly at the bases with bilateral crackles and rhonchi, mostly from the mid part to the lower thoracic area. Abdomen: Soft, nontender, nondistended. No hepatosplenomegaly. Extremities: She does have some edema 2+. No clubbing, no cyanosis. Neurological: The patient is awake, alert. She is oriented x3. No focal deficits but generalized weakness to the point that she cannot walk. LABORATORY: WBC 8.9, hemoglobin 10.6, hematocrit 36.3, platelets 108,000. Sodium 137, potassium 3, chloride 84, bicarbonate 40, BUN 42, creatinine 1.3, glucose 76, calcium 8.9. ASSESSMENT AND PLAN: 1. Diastolic heart failure exacerbation in a patient with bioprosthetic aortic valve replacement in the past with severe restenosis of the aortic valve, Cardiology Department is following this patient closely. We will continue with diuretics, beta blockers. We have a negative balance of at least 9.6 L. She is tolerating p.o. She is having bowel movement. Continue with same management. This patient has been evaluated by Dr. Pina and he states that probably this patient meets criteria for hospice, this has been discussed with the patient and also the family member at the bedside. 2. Symptomatic anemia, status post 1 unit of PRBC. Aware. 3. Chronic kidney disease. Continue to monitor. This is her baseline. 4. Has some intermittent nausea, and this patient is also spitting a lot, but she is apparently tolerating p.o. really well. 5. Leukocytosis, resolved. 6. Pneumonia and pulmonary edema. Continue with diuretics and antibiotics per Infectious Disease Department. 7. Pulmonary hypertension. Continue with diuretics. 8. History of esophageal achalasia, aware. 9. Sick sinus syndrome status post pacemaker placement. Cardiology on board. 10. History of cervical cancer, aware. 11. Hypothyroidism. Continue with Synthroid. 12. Dyslipidemia. Continue with simvastatin. 13. Hypokalemia. I will replace the potassium likely due to the furosemide. cc: Bud Johnson MD
[2019-04-17] MEDS: ZOCOR PO SCH (21:17)
[2019-04-17] MEDS: KLOR-CON PO SCH (21:22)
[2019-04-18] MEDS: MAXIPIME 1 GM in NS 50 ML IV SCH ×2 (05:28→17:18)
--- NOTE | 2019-04-18 07:49 | Diag Imaging Result Doc PS360 ---
CHEST-PORTABLE - 04/18/2019 INDICATION: dyspnea COMPARISON: 04/15/2019 FINDINGS: Stable sternotomy wires. Stable left-sided pacemaker. Stable cardiomegaly. There has been improvement in the central infiltrates compatible with pulmonary edema. Stable extensive opacification in the right lung base compatible with any combination of infiltrate, atelectasis, or pleural effusion. IMPRESSION: Improvement in the central pulmonary edema. Electronically signed by Rommel Childress 04/18/2019 7:47 AM
[2019-04-18 08:42] LABS: CALCIUM 8.9 mg/dL (8.8-10.2); CREATININE 1.3 mg/dL (0.5-0.9); POTASSIUM 3.8 mmol/L (3.5-5.1)
[2019-04-18] MEDS: ALBUTEROL NEB INH SCH ×2 (09:19→19:27)
[2019-04-18] MEDS: ZYVOX 600 MG/D5W 600 MG/300 ML IVPB IV SCH ×2 (09:38→20:15)
[2019-04-18] MEDS: KLOR-CON PO SCH ×2 (09:45→20:16)
[2019-04-18] MEDS: PREDNISONE PO SCH (09:45)
[2019-04-18] MEDS: COLACE PO SCH ×2 (09:45→20:16)
[2019-04-18] MEDS: ASPIRIN EC PO SCH (09:45)
[2019-04-18] MEDS: SYNTHROID PO SCH (09:46)
[2019-04-18] MEDS: LASIX IV SCH (09:46)
[2019-04-18] MEDS: VITAMIN D PO SCH (09:46)
[2019-04-18] MEDS: TOPROL XL PO SCH (09:46)
[2019-04-18] MEDS: PROTONIX PO SCH ×2 (09:46→20:17)
[2019-04-18] MEDS: MIRALAX PO SCH (10:01)
--- NOTE | 2019-04-18 12:29 | PROGRESS NOTE ---
DATE: 04/18/2019 SUBJECTIVE: The patient is resting comfortably in bed. She is not complaining of shortness of breath but she seems to be a little bit confused today. She is oriented to person and place, but her answers are more slow, probably she is a bit sleepy as well. For now, we will continue with the same management. She seems to be getting better though. OBJECTIVE: Vital Signs: Temperature 98.5 degrees, pulse 78, respiratory rate 17, blood pressure 109/49, oxygen saturation 100% on 3 L of nasal cannula. HEENT: Head normocephalic, no trauma. PERRLA. Neck: Supple. No JVD. No masses. Central trachea. Chest: Decreased breath sounds mostly at the bases with bilateral crackles and rhonchi mostly on the left side. Abdomen: Soft, nontender, nondistended. No hepatosplenomegaly. Extremities: 2+ lower extremity edema. No clubbing. No cyanosis. Neurological: The patient is awake, she is alert. She is actually oriented x3 but her answers are slow and sometimes she seems to be confused, no focal deficits but she does have generalized weakness and she is tired. LABORATORY DATA: Sodium 131, potassium 3.8, chloride 83, bicarbonate 39, BUN 42, creatinine 1.3, glucose 95, calcium 8.9. ASSESSMENT AND PLAN: 1. 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 Cardiology Department following this patient closely. Continue with diuretics, beta steven. We have a negative balance of 11.1 L. She is tolerating p.o., she having bowel movements. This patient has been evaluated previously by Dr. Pina and we discussed the case together and he recommended hospice at some point during this hospitalization or probably in the near future. 2. Symptomatic anemia, status post 1 packed red blood cells, aware. 3. Chronic kidney disease. Continue to monitor. This is her baseline. 4. She has been having some intermittent nausea and she has been spitting a lot, but apparently she is doing better. She is tolerating p.o. 5. Leukocytosis, resolved. 6. Pneumonia and pulmonary edema. Continue with diuretics and antibiotics per the Infectious Disease Department. 7. Pulmonary hypertension. Continue with diuretics. 8. History of esophageal achalasia. Aware. 9. Sick sinus syndrome status post pacemaker placement. Cardiology on board. 10. History of cervical cancer. Aware. 11. Hypothyroidism. Continue with Synthroid. 12. Dyslipidemia. Continue with simvastatin. 13. Hypokalemia, resolved. Continue with the same management. She is getting potassium twice a day. cc: Bud Johnson MD
--- NOTE | 2019-04-18 18:37 | Diag Imaging Result Doc PS360 ---
CT HEAD W/O CONTRAST - 04/18/2019 INDICATION: encephalopathy COMPARISON: None FINDINGS: There is moderate diffuse cerebral atrophy. There is mild cerebral white matter chronic vascular ischemia. No intracranial mass or hemorrhage. The skull is intact. The sinuses, mastoids, and middle ears are clear. IMPRESSION: No acute process. This exam was performed using automated exposure control, adjustment of mA or kV according to patient size, and/or use of iterative reconstruction technique Electronically signed by Rommel Childress 04/18/2019 6:34 PM
[2019-04-18] MEDS: ZOCOR PO SCH (20:17)
[2019-04-19] MEDS: MAXIPIME 1 GM in NS 50 ML IV SCH (05:56)
[2019-04-19 07:41] LABS: BASO# 0.01 X1000 (0.0-0.2); BASO% 0.1 % (0.0-0.8); EOS# 0.07 X1000 (0.0-0.7); EOS% 0.7 % (0.0-10.0); HEMATOCRIT 31.5 % (37.0-47.0); HEMOGLOBIN 10.3 g/dL (12.0-16.0); IMM GRAN# 0.08 X1000 (0.0-0.04); IMM GRAN% 0.8 % (0.0-0.5); LYMPH# 1.41 X1000 (1.2-3.4); LYMPH% 14.1 % (20.5-51.1); MCH 27.8 PG (27-31); MCHC 32.7 g/dL (33-37); MCV 84.9 FL (81-99); MONO# 1.24 X1000 (0.11-0.59); MONO% 12.4 % (1.7-9.3); MPV 10.1 FL (7.4-10.4); NEUT# 7.21 X1000 (1.4-6.5); NEUT% 71.9 % (42.2-75.2); PLT 115 X1000 (130-400); RBC 3.71 XMIL (4.2-5.4); RDW 20.6 % (11.5-14.5); WBC 10.02 X1000 (4.8-10.8)
[2019-04-19 08:00] LABS: CALCIUM 8.8 mg/dL (8.8-10.2); CREATININE 1.4 mg/dL (0.5-0.9); POTASSIUM 4.1 mmol/L (3.5-5.1)
[2019-04-19] MEDS: VITAMIN D PO SCH (08:31)
[2019-04-19] MEDS: TOPROL XL PO SCH (08:32)
[2019-04-19] MEDS: KLOR-CON PO SCH (08:32)
[2019-04-19] MEDS: PREDNISONE PO SCH (08:32)
[2019-04-19] MEDS: SYNTHROID PO SCH (08:32)
[2019-04-19] MEDS: ASPIRIN EC PO SCH (08:32)
[2019-04-19] MEDS: PROTONIX PO SCH ×2 (08:32→22:07)
[2019-04-19] MEDS: ALBUTEROL NEB INH SCH ×2 (08:43→20:17)
[2019-04-19] MEDS: COLACE PO SCH ×2 (08:54→22:07)
[2019-04-19] MEDS: MIRALAX PO SCH (08:54)
[2019-04-19] MEDS: ZYVOX 600 MG/D5W 600 MG/300 ML IVPB IV SCH ×2 (08:56→21:52)
[2019-04-19] MEDS ORDERED: MERREM 1 GM in NS 50 ML IV SCH (09:00)
--- NOTE | 2019-04-19 09:29 | PROGRESS NOTE ---
DATE: 04/19/2019 SUBJECTIVE: The patient is resting comfortably in bed, but she is confused. I cannot understand what she says. I do not see any focal weakness, but she does have generalized weakness, so I am not going to be able to make a good physical exam, but she seems to be moving all 4 extremities. She is tolerating p.o., but just a few bites. I will hold for now the Lasix. We have removed so far 12.5 L. She still has some lower extremity edema, but since she is not eating or drinking like before, I will hold it. She is encephalopathic. I have requested an MRI and also Neurology Department to evaluate this patient. I talked to Dr. Fox, who stopped the cefepime that can cause some encephalopathy, and I changed it to meropenem, renally dosed. OBJECTIVE: Vital Signs: Temperature 98.1 degrees, pulse 71, respiratory rate 18, blood pressure 134/88, oxygen saturation 97% on 3 L of nasal cannula. HEENT: Head normocephalic, no trauma. PERRLA. Neck: Supple. No JVD. No masses. Central trachea. Chest: Decreased breath sounds mostly at the bases with bilateral crackles and rhonchi, mostly on the left side. Abdomen: Soft, nontender, nondistended. No hepatosplenomegaly. Extremities: 2+ lower extremity edema. No clubbing. No cyanosis. Neurological examination: The patient is awake. She is alert, but she is confused. She was getting some confusion yesterday in the morning, but in the afternoon she got worse, and today I cannot understand what she says. I had a CT scan done yesterday that did not show any acute process, and I will get an MRI without contrast today. LABORATORY: WBC 10, hemoglobin 10.3, hematocrit 31.5, platelets 115. Sodium 132, potassium 4.1, chloride 84, bicarbonate 36. BUN 41, creatinine 1.4, glucose 92, calcium 8.8. ASSESSMENT AND PLAN: 1. 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 Cardiology Department following this patient closely. I will hold the diuretics today. Continue beta blockers. She has a negative balance of close to 12.5 liters. She is tolerating a little bit of food by mouth. Dr. Pina has evaluated this patient before, and he has suggested hospice due to her valve problem. 2. Symptomatic anemia, status post 1 packed red blood cell. This is why we are not using blood thinners at this point. 3. Chronic kidney disease. Continue to monitor. This is her baseline. 4. Intermittent nausea, better. 5. Leukocytosis, resolved. 6. Pneumonia and pulmonary edema. We have been removing a lot of fluid from this patient actually; we have a negative balance of 12.5 liters. She is not eating too much today or drinking too much, so I will hold the Lasix today and I will restart it tomorrow. I have stopped the cefepime due to her mental status changes and I put her on meropenem. 7. Encephalopathy. This has been started yesterday. She was oriented in the morning, but in the afternoon she was having some confusion. I got a CT scan that did not show any abnormality, and today I am getting an MRI and probably Neurology evaluation. I do believe it could be related to medications, especially cefepime, but also it could be related to her age and hospitalization. 8. History of cervical cancer. Aware. 9. Sick sinus syndrome status post pacemaker placement. Cardiology on board. 10. Hypothyroidism. Continue with Synthroid. 11. Dyslipidemia. Continue with simvastatin. 12. Hypokalemia. Resolved. cc: Bud Johnson MD
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
[2019-04-19] MEDS: CLINIMIX E 4.25%-5% SOLUTION 1,000 ML IV SCH (12:55)
--- NOTE | 2019-04-19 18:48 | INFECTIOUS DISEASE PROGRESS NO ---
DATE: 04/19/2019 PRESENT ILLNESS: The patient is being treated for pneumonia superimposed on pulmonary venous congestion. Today, she seemed to have an altered mental status which both Dr. Haskins and I think could be due to medication she is taking, specifically cefepime. MEDICATIONS: As mentioned above, the patient has been on cefepime and also Zyvox now for 3 days. PHYSICAL EXAMINATION: Vital Signs: Temperature is 97.6 degrees, pulse 73, respirations 12, blood pressure 108/80. General: This is an ill-appearing, elderly female. She is seems to be in a delirium. Head, eyes, ears, nose, throat: She does not have any drainage coming from her ears or nose. Her eyes were closed while I was examining her. She did respond to verbal stimuli. Neck: There did not seem to be any pain when she moved her neck. Lungs: Clear to auscultation. Cardiovascular: Heart rate is regular with a systolic murmur. Abdomen: Soft and nontender. Thorax: On the left side, the patient has a combined defibrillator and pacemaker. The site is not swollen or red. Extremities: The patient had edema with some eschars present. LAB AND X-RAY: The patient's CBC shows a white count of 10,020, hemoglobin 10.3, and platelet count 115,000. Creatinine is 1.4. GFR is 36. CT scan of the head showed atrophy and chronic vascular ischemia. Chest x-ray shows improvement in the central infiltrates and the same in the right lower lobe. ASSESSMENT AND PLAN: The patient has pneumonia superimposed on pulmonary venous congestion. The patient has had an altered mental status which we think is due to cefepime. The plan now is to continue with Zyvox and discontinue cefepime and start Rocephin. COMORBIDITIES: The patient is elderly. She has had uterine cancer. She has congestive heart failure. She had an aortic valve replacement. She also has a left chest permanent pacemaker and defibrillator present. Patient also has ischemia and atrophy of the brain. cc: Obie Fox MD
[2019-04-19] MEDS: ZOCOR PO SCH (22:08)
[2019-04-19] MEDS: ROCEPHIN 1 GM in NS 50 ML IV SCH (23:42)
[2019-04-20 07:39] LABS: BASO# 0.01 X1000 (0.0-0.2); BASO% 0.1 % (0.0-0.8); EOS# 0.07 X1000 (0.0-0.7); EOS% 0.7 % (0.0-10.0); HEMATOCRIT 33.3 % (37.0-47.0); HEMOGLOBIN 9.9 g/dL (12.0-16.0); IMM GRAN# 0.09 X1000 (0.0-0.04); IMM GRAN% 0.8 % (0.0-0.5); LYMPH# 1.07 X1000 (1.2-3.4); LYMPH% 9.9 % (20.5-51.1); MCH 25.1 PG (27-31); MCHC 29.7 g/dL (33-37); MCV 84.3 FL (81-99); MONO# 1.34 X1000 (0.11-0.59); MONO% 12.5 % (1.7-9.3); MPV 9.7 FL (7.4-10.4); NEUT# 8.18 X1000 (1.4-6.5); PLT 111 X1000 (130-400); RBC 3.95 XMIL (4.2-5.4); RDW 20.9 % (11.5-14.5); WBC 10.76 X1000 (4.8-10.8)
[2019-04-20] MEDS: ALBUTEROL NEB INH SCH ×2 (08:19→20:04)
[2019-04-20 08:23] LABS: CALCIUM 8.8 mg/dL (8.8-10.2); CREATININE 1.2 mg/dL (0.5-0.9); POTASSIUM 3.8 mmol/L (3.5-5.1)
[2019-04-20] MEDS: LASIX IV SCH (09:08)
[2019-04-20] MEDS: ZYVOX 600 MG/D5W 600 MG/300 ML IVPB IV SCH ×2 (09:09→20:11)
[2019-04-20] MEDS: SYNTHROID PO SCH (09:29)
[2019-04-20] MEDS: ASPIRIN EC PO SCH (09:29)
[2019-04-20] MEDS: VITAMIN D PO SCH (09:29)
[2019-04-20] MEDS: TOPROL XL PO SCH (09:29)
[2019-04-20] MEDS: PREDNISONE PO SCH (09:30)
[2019-04-20] MEDS: COLACE PO SCH ×2 (09:30→20:10)
[2019-04-20] MEDS: KLOR-CON PO SCH (09:30)
[2019-04-20] MEDS: MIRALAX PO SCH (09:30)
[2019-04-20] MEDS: PROTONIX PO SCH ×2 (09:31→20:10)
--- NOTE | 2019-04-20 10:18 | PROGRESS NOTE ---
DATE: 04/20/2019 SUBJECTIVE: This patient is still confused and she is not following commands. I put this patient on Clinimix yesterday since she is not tolerating p.o. She has been evaluated by multiple subspecialties including Infectious Disease Department, Neurology Department, and we all believe this is probably related to medications, especially the cefepime, this has been stopped. We put this patient on ceftriaxone. Vital signs are stable. I will continue with same management for now. I will transfer this patient to the PVC unit to keep a better eye on her. OBJECTIVE: Vital Signs: Temperature 94 degrees, pulse 69, respiratory rate 22, blood pressure 131/78, oxygen saturation 96 on 3 L of nasal cannula. HEENT: Head normocephalic, no trauma. PERRLA. Neck: Supple. No JVD. Central trachea. Chest: Decreased breath sounds at the bases with some mild crackles and rhonchi mostly on the left side. Abdomen: Soft, nontender, nondistended. No hepatosplenomegaly. Extremities: There is trace to 1+ lower extremity edema. No clubbing. No cyanosis. Neurological: The patient is awake, but she is not following commands. She is confused. LABORATORY: WBC 10.7, hemoglobin 9.9, hematocrit 33.3, platelets 111,000. Sodium 132, potassium 3.8, chloride 85, bicarbonate 36, BUN 37, creatinine 1.2, glucose 105, calcium 8.8. ASSESSMENT AND PLAN: 1. Global encephalopathy. We believe this is related to cefepime use, which has been stopped yesterday and we have placed this patient on ceftriaxone. Infectious Disease Department and Neurology Department already evaluated this patient. I will continue with same management for now. 2. 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 Cardiology Department following this patient closely. I am holding the diuretics for now because she is not eating. Continue with the rest of the medications. She has a negative balance of 12.3 L. She is not complaining of shortness of breath and her swelling is going down significantly. 3. Symptomatic anemia status post 1 packed red blood cell. We will monitor for now. 4. Chronic kidney disease. Continue to monitor. This is her baseline. 5. Intermittent nausea, better. 6. Leukocytosis, resolved. 7. Pneumonia and pulmonary edema. So far we have a negative balance of 12.3 L. I held the Lasix because she is not eating or drinking too much and I have placed this patient on Clinimix for now. I will monitor. 8. History of cervical cancer, aware. 9. Sick sinus syndrome status post pacemaker placement before. Cardiology on board. 10. Hypothyroidism. Continue with Synthroid. 11. Dyslipidemia. Continue with simvastatin. 12. Hypokalemia, resolved. A few days ago, this patient was evaluated by Dr. Pina who recommended hospice in the near future. She became encephalopathic and we do believe this is related to the medications especially cefepime. I will transfer this patient to the PVC unit to keep a better eye on her. We will monitor this patient closely. cc: Bud Johnson MD
--- NOTE | 2019-04-20 12:03 | INFECTIOUS DISEASE PROGRESS NO ---
DATE: 04/20/2019 PRESENT ILLNESS: Ms. Butt is being treated for pneumonia and has developed altered mental status which we think may be in part, due to cefepime, which she was receiving previously. MEDICATIONS: She is now receiving Rocephin 1 g IV every 24 hours and Zyvox 600 mg IV every 12 hours. PHYSICAL EXAMINATION: Vital Signs: Temperature is 97.4 degrees, pulse rate 69, respiratory rate 22, blood pressure 131/78, O2 saturation is 96% on 3 L nasal cannula. General: This is a chronically ill-appearing, elderly female. She is lying in the bed, currently in no acute distress. HEENT: Atraumatic, normocephalic. Oral mucous membranes are pink and dry. Conjunctivae are pink. Neck: Has a decrease in suppleness. Trachea is midline. Cardiovascular: Heart rate and rhythm are regular with a paced rhythm on the monitor. Lungs: Sounds have some mild rales bilaterally, diminished in the bases. Abdomen: Soft, round and nontender. Bowel sounds are active. Integumentary: Skin is warm and dry. Neurologic: She is awake, alert, and eyes are open. She is moaning and nonverbal at this time. LABORATORY AND X-RAY: Today her white count is 10.76, hemoglobin 9.9, platelet count 111,000. Creatinine is 1.2, GFR is 42. No imaging reports today. ASSESSMENT AND PLAN: Ms. Butt is being treated for pneumonia as seen on CT. She was receiving cefepime which seems to have caused some confusion, since she was alert and oriented on admission. The cefepime was discontinued yesterday and now she is receiving Zyvox and Rocephin, which we will continue at this time. Her white count remains normal and she is afebrile. There has not been a urine collected on this admission, so we will have nursing send a UA and C&S from her catheter. These plans have been discussed with and recommended by Dr. Fox. COMORBIDITIES: She is elderly with congestive heart failure and a history of uterine cancer. Dictated by TIN Magaña for Obie Fox MD cc: Obie Fox MD [facility]PITALAmber
[2019-04-20 12:31] LABS: URINE SOURCE CATH
[2019-04-20 12:35] LABS: BILIRUBIN URINE NEGATIVE (NEGATIVE); BLOOD URINE MODERATE (NEGATIVE); COLOR STRAW; GLUCOSE URINE NEGATIVE (NEGATIVE); KETONE URINE NEGATIVE (NEGATIVE); LEUKOCYTES URINE MODERATE (NEGATIVE); NITRITE URINE NEGATIVE (NEGATIVE); PROTEIN URINE NEGATIVE (NEGATIVE); SP GRAVITY URINE 1.008; TURBIDITY URINE CLEAR (CLEAR); UR EPITHELIAL CELLS <10 /HPF (<10); URINE BACTERIA NEGATIVE /HPF; URINE RBC TNTC /HPF (<10); UROBILINOGEN URINE NORMAL (NORMAL)
--- NOTE | 2019-04-20 13:00 | PROGRESS NOTE ---
DATE: 04/20/2019 SUBJECTIVE: Ms. Butt continues incompletely responsive. Daughter at the bedside reports she seems more restless, groaning more today, but not communicating or interacting better than yesterday. She is now more than 24 hours since last dose of cefepime. OBJECTIVE: On exam, she is awake, groaning a little bit with each breath. With moderate level of stimulation, she began to groan a little bit more loudly with each breath. She was much quicker today to open her eyes, fix her gaze on me, frown. She did not speak. She did not follow my brief commands. She continues tremulous. She continues afebrile. IMPRESSION: Global encephalopathy. She is slightly more responsive today, but no where near her baseline. With [id number]'s report that there was not cognitive impairment at baseline, I continue to suspect the current encephalopathy is related to cefepime and, therefore, I continue optimistic that she will continue to improve. If we do not see further improvement, we might need to consider further neurologic workup. Thanks for asking Neurology to see Ms. Butt. cc: MD CHANTEL Trujillo III
[2019-04-20] MEDS: CLINIMIX E 4.25%-5% SOLUTION 1,000 ML IV SCH (17:41)
[2019-04-20] MEDS: ZOCOR PO SCH (20:10)
[2019-04-20] MEDS: ROCEPHIN 1 GM in NS 50 ML IV SCH (20:11)
[2019-04-21 06:27] LABS: HEMOGLOBIN 10.1 g/dL (12.0-16.0); MCH 23.6 PG (27-31); MCHC 28.9 g/dL (33-37); MCV 81.8 FL (81-99); MPV 10.6 FL (7.4-10.4); RBC 4.28 XMIL (4.2-5.4); WBC 11.4 X1000 (4.8-10.8)
[2019-04-21 06:53] LABS: CALCIUM 8.7 mg/dL (8.8-10.2); CREATININE 1.3 mg/dL (0.5-0.9); MAGNESIUM 2.4 mg/dL (1.5-2.7); PHOSPHORUS 3.2 mg/dL (2.7-4.5); POTASSIUM 3.5 mmol/L (3.5-5.1)
--- NOTE | 2019-04-21 07:15 | Diag Imaging Result Doc PS360 ---
CHEST-PORTABLE - 04/21/2019 INDICATION: dyspnea COMPARISON: 04/18/2019 FINDINGS: Stable surgical changes to the heart. Stable pacemaker. Stable cardiomegaly and pulmonary vascular congestion. Stable moderate right and small left pleural effusions. No new infiltrates. IMPRESSION: No change from prior. Electronically signed by Rommel Childress 04/21/2019 7:13 AM
[2019-04-21] MEDS: ASPIRIN EC PO SCH (08:01)
[2019-04-21] MEDS: KLOR-CON PO SCH (08:02)
[2019-04-21] MEDS: MIRALAX PO SCH (08:02)
[2019-04-21] MEDS: PREDNISONE PO SCH (08:02)
[2019-04-21] MEDS: VITAMIN D PO SCH (08:02)
[2019-04-21] MEDS: COLACE PO SCH ×2 (08:02→20:02)
[2019-04-21] MEDS: PROTONIX PO SCH ×2 (08:03→20:02)
[2019-04-21] MEDS: SYNTHROID PO SCH (08:03)
[2019-04-21] MEDS: TOPROL XL PO SCH (08:03)
[2019-04-21] MEDS: ALBUTEROL NEB INH SCH ×2 (08:04→19:05)
[2019-04-21] MEDS: ZYVOX 600 MG/D5W 600 MG/300 ML IVPB IV SCH ×2 (08:28→20:02)
[2019-04-21] MEDS: LASIX IV SCH (08:28)
--- NOTE | 2019-04-21 08:32 | PROGRESS NOTE ---
DATE: 04/21/2019 SUBJECTIVE: The patient seems to be a little bit better compared with yesterday. She seems to be less restless. She seems to be more alert, but she is still not following commands, but she is trying to talk. I will continue with same management for now. Vital signs and laboratory are stable. X-ray about the same compared with the previous one. I will make no changes. OBJECTIVE: Vital Signs: Temperature 97.6 degrees, pulse 70, respiratory rate 18, blood pressure 111/61, oxygen saturation 94% on 3 L of nasal cannula. HEENT: Head normocephalic, no trauma. PERRLA. Neck: Supple. No JVD. No masses. Central trachea. Chest: Decreased breath sounds at the bases with some mild crackles and rhonchi, mostly on the left side. Abdomen: Soft, nontender, nondistended. No hepatosplenomegaly. Extremities: Trace edema at the level of the lower extremities. No clubbing, no cyanosis. Neurological examination: The patient is awake. She seems to be more alert today compared with yesterday, but she is still not following commands. She seems to be less agitated/restless today. I think she is improving. LABORATORY: WBC 11.4, hemoglobin 10.1, hematocrit 35.0, platelets 117. Sodium 133, potassium 3.5, chloride 87, bicarbonate 34. BUN 40, creatinine 1.3, glucose 100, calcium 8.7. ASSESSMENT AND PLAN: 1. Global encephalopathy. We believe this is related to her cefepime treatment, which had been stopped already a couple days ago. She seems to be improving. I will continue with same management. Neurology Department and Infectious Disease Department on board. 2. 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 Cardiology Department following this patient closely. I will continue with the same amount of diuretics at this moment and the rest of the medications. It looks like she is not tolerating oral due to her confusion, but she seems to be stable, so we will monitor. 3. Symptomatic anemia, status post 1 packed red blood cell. We will monitor for now. 4. Chronic kidney disease. Continue to monitor. This is her baseline. 5. Intermittent nausea, better. 6. Leukocytosis, better. 7. Pneumonia and pulmonary edema. Continue with the same treatment. She is getting Lasix and also antibiotics. 8. History of cervical cancer, aware. 9. Sick sinus syndrome, status post pacemaker placement. Cardiology on board. 10. Hypothyroidism. Continue with Synthroid. 11. Dyslipidemia. Continue with simvastatin. 12. Hypokalemia, resolved. A few days ago, I had a conversation with Dr. Pina, who recommend hospice for this patient. We have been setting up hospice for her, and she does have a bed to go this Tuesday. She can be discharged to [facility] with hospice in that place. Please ask the social insurance adviser on Tuesday that everything has been set up just to make sure. cc: Bud Johnson MD
[2019-04-21] MEDS: ROCEPHIN 1 GM in NS 50 ML IV SCH (20:02)
[2019-04-21] MEDS: ZOCOR PO SCH (20:02)
[2019-04-21] MEDS: CLINIMIX E 4.25%-5% SOLUTION 1,000 ML IV SCH (22:33)
[2019-04-22] MEDS: ALBUTEROL NEB INH SCH ×2 (07:35→19:20)
[2019-04-22] MEDS: VITAMIN D PO SCH (09:00)
[2019-04-22] MEDS: ASPIRIN EC PO SCH (09:00)
[2019-04-22] MEDS: SYNTHROID PO SCH (09:01)
[2019-04-22] MEDS: PROTONIX PO SCH ×2 (09:01→20:00)
[2019-04-22] MEDS: TOPROL XL PO SCH (09:01)
[2019-04-22] MEDS: COLACE PO SCH ×2 (09:02→20:00)
[2019-04-22] MEDS: MIRALAX PO SCH (09:02)
[2019-04-22] MEDS: KLOR-CON PO SCH (09:02)
[2019-04-22] MEDS: PREDNISONE PO SCH (09:02)
[2019-04-22] MEDS: LASIX IV SCH (09:28)
[2019-04-22] MEDS: ZYVOX 600 MG/D5W 600 MG/300 ML IVPB IV SCH ×2 (09:28→19:53)
--- NOTE | 2019-04-22 11:40 | INFECTIOUS DISEASE PROGRESS NO ---
DATE: 04/22/2019 PRESENT ILLNESS: The patient is being treated for pneumonia. She also has a Klebsiella urinary tract infection. The patient developed an altered mental status, but this has cleared. MEDICATIONS: The patient is receiving a combination of Rocephin and Zyvox. PHYSICAL EXAMINATION: Vital Signs: Temperature is 98.2 degrees, pulse 78, respirations 17, blood pressure 89/46. General: This is a chronically ill-appearing, elderly female. She is lying in bed. She does not appear to be in any acute distress. She was able to carry on a coherent conversation. HEENT: No drainage noted from the nose or ears. I did not see any white patches on her tongue. Neck: The patient moved her neck, and it did not cause her any pain. Lungs: Clear to auscultation. Cardiovascular: Heart rate is regular. Thorax: On the left side, the patient has a pacemaker. The site is not erythematous or swollen. Neurologic: The patient is alert. She is able to talk in a coherent fashion. She can move her extremities. There is no tremor. IMAGING AND LABORATORY DATA: Chest x-ray shows pulmonary vascular congestion. The CBC shows a white count of 11,400, hemoglobin 10.1, and platelet count 117,000. Urine culture grew Klebsiella. ASSESSMENT AND PLAN: The patient has a pneumonia and pulmonary venous congestion. She also has a urinary tract infection. My plan is to continue the current antibiotics, namely Rocephin and Zyvox. COMORBIDITIES: The patient is elderly. She has congestive heart failure, and she has a history of a uterine cancer. She had an altered mental status due to medication, namely cefepime most likely. cc: Obie Fox MD
--- NOTE | 2019-04-22 14:37 | PROGRESS NOTE ---
DATE: 04/22/2019 SUBJECTIVE: The patient resting comfortably in bed. OBJECTIVE: Vital signs: Temperature 98.2 degrees, pulse 78, respiratory is 17, blood pressure is 95/54, oxygen saturation is 98%. HEENT: Atraumatic, normocephalic. Cardiovascular: S1, S2. Respiratory system: Has evidence of good air entry bilaterally. Abdomen: Soft, nontender. No masses felt. Extremities: No evidence of edema. Central nervous system: No evidence of edema. LABS: None. ASSESSMENT AND PLAN: 1. Encephalopathy, probably metabolic. Probably related to pneumonia as well as urinary tract infection. 2. Acute diastolic heart failure. Monitor intakes and outputs, as well as daily weights. Diuretics as needed. 3. Anemia follow up on hemoglobin and hematocrit. Transfuse packed red blood cells as needed. 4. Chronic kidney disease. Avoid nephrotoxic agent. 5. Urinary tract infection. Secondary to Klebsiella pneumonia. Antibiotic management per the Infectious Disease team. 6. Pneumonia. Antibiotics per Infectious Disease team. 7. History of cervical cancer. Aware. 8. Sick sinus syndrome status post pacemaker implantation. Aware. 9. Hypothyroidism. Continue levothyroxine. 10. Dyslipidemia. Continue simvastatin. 11. Hypokalemia. Resolved. cc: Ryland Meyer MD
[2019-04-22] MEDS: ZOCOR PO SCH (20:01)
[2019-04-22] MEDS: ROCEPHIN 1 GM in NS 50 ML IV SCH (20:02)
[2019-04-22] MEDS: CLINIMIX E 4.25%-5% SOLUTION 1,000 ML IV SCH (22:39)
--- NOTE | 2019-04-23 07:21 | INFECTIOUS DISEASE PROGRESS NO ---
DATE: 04/23/2019 PRESENT ILLNESS: The patient has been treated for pneumonia. I think most likely that it is clearing and may be totally clear. The patient also has a Klebsiella urinary tract infection, which I think also has cleared. And finally, she had an altered mental status, but I think this was due to a medication which has been stopped and now her mental status seems normal. MEDICATION: The patient is on a combination of Zyvox and Rocephin. PHYSICAL EXAMINATION: Vital Signs: Temperature is 98.3 degrees, pulse 70, respirations 18, blood pressure 116/53. General: This is a chronically ill-appearing elderly female. She is lying in bed. She is in no acute distress. She is able to carry on a coherent conversation. HEENT: She can hear my spoken words and see near objects. I did not notice any white coating of her tongue. Neck: No pain with movement. Lungs: Clear to auscultation. Cardiovascular: Heart rate is regular with a systolic murmur. Thorax: On the patient's left side, there is a pacemaker. The site is not erythematous or tender. Abdomen: Soft and nontender. Neurologic: The patient is awake. As mentioned above, she talks in a coherent fashion. I asked her to move her extremities and she did but she was very weak. LABS/RADIOLOGY: There is not any new lab or radiographic study back today. ASSESSMENT AND PLAN: It appears to me that the patient's pneumonia has cleared and only now she has pulmonary venous congestion. Also her urinary tract infection I think has cleared. My plan is to continue Rocephin and Zyvox for today and tomorrow morning obtain a CBC, BMP, and a portable chest x-ray. Hopefully, the patient's infection she is being treated for will be cleared up and I can stop her antibiotics. COMORBIDITIES: Patient is elderly. She has congestive heart failure and a history of uterine cancer. Her altered mental status was due to medication and now it is back to normal. If the patient's lab tests and chest x-ray show that the patient's pneumonia has cleared, then I think her antibiotics can be stopped and from an infectious disease point of view the patient can be discharged or sent to a rehab facility. cc: Obie Fox MD
[2019-04-23] MEDS: ALBUTEROL NEB INH SCH (07:34)
[2019-04-23] MEDS: ASPIRIN EC PO SCH (08:04)
[2019-04-23] MEDS: COLACE PO SCH (08:04)
[2019-04-23] MEDS: KLOR-CON PO SCH (08:04)
[2019-04-23] MEDS: PREDNISONE PO SCH (08:04)
[2019-04-23] MEDS: MIRALAX PO SCH (08:04)
[2019-04-23] MEDS: PROTONIX PO SCH (08:05)
[2019-04-23] MEDS: VITAMIN D PO SCH (08:05)
[2019-04-23] MEDS: TOPROL XL PO SCH (08:06)
[2019-04-23] MEDS: SYNTHROID PO SCH (08:06)
[2019-04-23] MEDS ORDERED: ROCEPHIN ONE (08:09)
[2019-04-23] MEDS: ZYVOX 600 MG/D5W 600 MG/300 ML IVPB IV SCH (08:14)
[2019-04-23] MEDS: LASIX IV SCH (08:14)
--- NOTE | 2019-04-23 08:53 | PROGRESS NOTE ---
DATE: 04/23/2019 Ms. Butt is propped up in bed, having breakfast, chewing and swallowing uneventfully. Her speech is not significantly dysarthric. She is wide awake, alert, attentive, and appropriate. She answered some simple questions correctly. She answered simple orientation questions correctly. I did not test her cognitive function further. I believe that she may be at or near her baseline mental state. I do not have any new thoughts or new suggestions from Neurology standpoint. This seems to have most likely been cefepime related encephalopathy and that appears to be completely or nearly completely resolved now. Thanks for asking Neurology to see Ms. Butt. cc: Renetta Soares III, MD
[2019-04-23 11:55] VITALS: BP 112/56
--- NOTE | 2019-04-23 13:08 | DISCHARGE SUMMARY ---
ADMISSION DATE: 04/09/2019 DISCHARGE DATE: 04/23/2019 ADMISSION DIAGNOSES: 1. Acute on chronic systolic congestive heart failure. 2. Anemia of chronic disease. 3. Chronic kidney disease stage 3. 4. Esophageal achalasia. DISCHARGE DIAGNOSES: 1. Encephalopathy, metabolic. 2. Acute diastolic heart failure. 3. Anemia of chronic disease. 4. Chronic kidney disease stage 3. 5. Urinary tract infection positive for Klebsiella pneumoniae. 6. Pneumonia. 7. History of cervical cancer. 8. Sick sinus syndrome, status post permanent pacemaker implantation. 9. Hypothyroidism. 10. Dyslipidemia. 11. Hypokalemia. 12. Pulmonary artery hypertension with pressure of 60 to 65. 13. Aortic stenosis of her bioprosthetic aortic valve. CONSULTATIONS: 1. Dr. Soares. 2. Dr. Fox. 3. Dr. Pina. 4. Dr. Torres. SURGERIES/PROCEDURES: None. HOSPITAL COURSE: On 04/09/2019, Ms. Radha Butt, an 89-year-old female with a history of congestive heart failure and bioprosthetic aortic valve, presented to the emergency department with complaints of bilateral lower extremity edema, coughing, and wheezing that had been going on for at least a week prior to presentation. Both lower extremities were weeping. They were swollen. She had been on Lasix for years. On previous admission to this, they had added torsemide as the Lasix was not working anymore, and then the torsemide apparently was not working either. She had pulmonary edema, swelling of the lower extremities, and she was admitted for congestive heart failure. CT of the thorax without contrast showed congestive heart failure, but also showed essentially anasarca. An EF showed a preserved ejection fraction of 65%, but pulmonary pressures of 60 to 65. Cardiology was consulted for the congestive heart failure, who recommended IV Lasix, adding metolazone. They continued her beta blockers and her simvastatin. They continued the aspirin for her history of atrial fibrillation. Her anemia dropped, and per Cardiology recommendations, she was given blood, only 1 unit of packed red blood cells while she was here, and that was on 04/11/2019. On 04/13/2019, it seemed like she was a little bit lethargic, but she was also on Valium at night, along with trazodone, and it was at this point that she also looked like she could benefit from inpatient rehab. She was more awake the next day. On 04/15/2019, it looked like her chest x-ray had worsened, so a repeat chest CT was ordered. She was having some leukocytosis as well, but she was on prednisone too, so cefepime was started. Infectious Disease was ordered as a consult. She was having some nausea and vomiting during this time as well. The CT scan showed that she had large bilateral pleural effusions, and in the right [id number] lobe, it looked like there was a superimposed pneumonia in addition to her pulmonary edema. Abdominal x-ray did not show anything. Infectious Disease, Dr. Fox, continued the cefepime, but added Zyvox for the superimposed pneumonia. On 04/16/2019, after a long discussion of 15 to [address] Haskins, the patient made herself a DO NOT RESUSCITATE level 1 secondary to the severe aortic stenosis that she does not want to have repaired. By 04/17/2019, with all of the Lasix, she was down 9.6 L of fluid. All of her symptoms were improving. A chest x-ray was repeated on , which showed improvement in the central pulmonary edema. By 04/18/2019, she was negative balance of 11.1 L. She did have some hypokalemia from all the urine output, and she was replaced with potassium. It seemed as though maybe she was having some confusion. A head CT was performed on 04/18/2019, and that was negative for any acute process. Apparently, it started on 04/18/2019. She was oriented morning, but confused by that evening. Neurology was consulted, and Dr. Soares felt it was related to the cefepime, and felt it would resolve once the cefepime was stopped. The cefepime was stopped, and Rocephin was started on 04/19/2019. Zyvox was continued. By 04/20/2017, she was negative balance of 12.3 L. On 04/20/2019, the urine was collected and came back as positive for Klebsiella pneumoniae resistant to ampicillin and indeterminate against nitrofurantoin, ESBL negative. During her stay, hospice was discussed with her. I believe she will be going to [facility] with hospice. Despite that urinary tract infection, she was still continued on the Rocephin and Zyvox. Once the cefepime was stopped, her encephalopathy resolved. Today, she will be discharged to [facility] as a DO NOT RESUSCITATE level 1 with Hospice Services, without any IV antibiotics. DISCHARGE VITAL SIGNS: Temperature 97.6 degrees, heart rate 77, respiratory rate 20, blood pressure 112/56, O2 saturation 100% on 3 L nasal cannula. DISCHARGE LABORATORY DATA: White blood cells 11,000, hemoglobin 10, hematocrit 35, platelet count 117,000. Sodium 133, potassium 3.5, BUN 40, creatinine 1.3, glucose 100, calcium 8.7. Phosphorus 3.2, magnesium 2.4. Urinalysis: Moderate blood, moderate leukocytes, 10 to 20 white blood cells, too numerous to count red blood cells. It is actually negative for bacteria, but the microorganism that grew out was Klebsiella pneumoniae resistant to ampicillin and indeterminate to nitrofurantoin. It was ESBL negative. Also had a blood positive occult stool that was performed on 04/12/2019. PERTINENT IMAGING: Chest x-ray: Pulmonary edema, bilateral effusions on 04/09/2019. On 04/09/2019, chest CT: Congestive heart failure, anasarca. Echocardiogram on 04/09/2019: EF 65%, pulmonary pressure 60 to 65 mmHg with moderate pulmonary hypertension and severe functional aortic stenosis with the bioprosthetic valve. On 04/10/2019, chest x-ray: No change from prior. On 04/12/2019, chest x-ray: Mild improvement in pulmonary edema. On 04/15/2019, chest x-ray: Interval overall worsening. Chest CT on 04/15/2019: [id number] bilateral pleural effusions, right middle lobe, right upper lobe, pulmonary edema with superimposed pneumonia. Abdominal x-ray on 04/16/2019: No acute findings. Chest x-ray on 04/18/2019: Improved pulmonary edema. Head CT on 04/18/2019: No acute findings. Chest x-ray on 04/21/2019: No change from prior. Cardiovascular: No EKGs, but telemetry strip showed a paced atrial fibrillation, ventricularly paced. DISCHARGE MEDICATIONS: 1. Again, no antibiotics. 2. Tylenol 650 mg p.o. every 4 hours p.r.n. 3. Albuterol inhaled twice daily. 4. Prednisone taper. 5. Synthroid 75 mcg p.o. daily. 6. Toprol-XL 25 mg p.o. daily, hold for systolic less than 100 or heart rate less than 60. 7. Zofran 4 mg p.o. every 6 hours p.r.n. 8. Trazodone 50 mg p.o. nightly p.r.n. 9. Diazepam 1 mg to 2 mg p.o. every 8 hours p.r.n. 10. Docusate sodium 100 mg p.o. twice daily p.r.n. 11. Dulcolax 10 mg per rectum nightly p.r.n. 12. Lasix 80 mg p.o. twice daily. 13. MiraLAX 17 grams p.o. daily. If there is more than 1 BM in the last 24 hours, hold. 14. Protonix 40 mg p.o. daily. 15. Ultram 50 mg p.o. t.i.d. p.r.n. DISCHARGE ACTIVITY: As tolerated and with Physical Therapy. DISCHARGE DIET: Heart healthy with Ensure. Fluid restriction of 1500 mL per day. PHYSICIAN FOLLOWUPS: Dr. Stacie Zuleta, Dr. Obie Fox, and Cardiology, Dr. Aguilar in 1 month. DISCHARGE INSTRUCTIONS: Four anthony things you will be responsible for to successfully manage your condition is to take your medications exactly as prescribed by your physician, weight daily and keep a record to take to your doctor's appointments, stick to your low-sodium diet and fluid restrictions, keep all your followup appointments. Notify MD for any of the following: Having a hard time breathing, new-onset shortness of breath while resting, persistent cough, weight gain over 3 pounds in a day or 5 pounds in a week, swelling to the lower extremities, fever over 101, shortness of breath, chest pain. Refer to the congestive heart failure booklet you were given for more detailed information. If your condition changes, contact a physician and/or return to the emergency department. Changes may include, but are not limited to, shortness of breath, increased fatigue, excessive bleeding, unexplained weight loss or gain, unmanageable pain, signs or symptoms of infection. DISCHARGE DISPOSITION: [facility] short-term nursing facility with hospice. Dictated by TIN Thakkar for Shahid Collado MD cc: TIN Thakkar Patient with pneumonia and UTI now s/p antibiotic therapy. also with chronic diastolic CHF which appears to be baseline at this point. given numerous comorbidities and severe aortic stenosis which is likely to be inoperable, patient is going [facility] hospice. MTDD
== END 2019-04-23 16:17 ==
LOC: SUPCPDRO → ED 12:17 → SUATTDRO 20:08 → EDIPHOLD 20:08 → 2N 21:12 → 3N 04-11 17:49 → 2N 04-20 12:56
PROVIDERS: ATTEND Internal Medicine